=== PATIENT | female | born 1945 | race Caucasian/White ===

== ENCOUNTER 2016-09-09 10:17 | Outpatient (CLI) | payer MEDICARE, OTHER ==
--- NOTE | 2016-09-10 15:26 | Mammography Report ---
DIGITAL SCREENING MAMMOGRAM: 09/09/2016 CLINICAL INDICATION: A 70-year-old, for screening. COMPARISON: 08/2015, 05/2014, 05/2013, 02/2012. TECHNIQUE: Routine CC and MLO projections were obtained of the breasts. FINDINGS: Scattered fibroglandular tissue is present within the breasts. There are no dominant benigno s, suspicious microcalcifications, or secondary signs of malignancy. In comparison to the previous st udies, there are no significant changes. ASSESSMENT: NO MAMMOGRAPHIC EVIDENCE OF MALIGNANCY. NO SIGNIFICANT INTERVAL CHANGES. RECOMMENDATION: Screening mammography is recommended annually. BIRADS category 1 - negative. STANDARD QUALIFYING STATEMENTS 1. This examination was reviewed with the aid of Computed-Aided Detection (CAD). 2. A negative or benign imaging report should not delay biopsy if clinically suspicious findings are present. Consider surgical consultation if warranted. More than 5% of cancers are not identified by i maging. 3. Dense breasts may obscure an underlying neoplasm. JOB #: [id number] EXT JOB #:[id number]
== END 2016-09-09 10:18 | disposition home or self-care (01) ==
LOC: DI 10:17
PROVIDERS: ATTEND Physician Assistant
DX: Z12.31 Encounter for screening mammogram for malignant neoplasm of breast (principal)
CPT/HCPCS: 77067

== ENCOUNTER 2016-09-09 10:18 | Outpatient (CLI) | payer MEDICARE, OTHER ==
--- NOTE | 2016-09-09 15:55 | DEXA Report ---
DEXA SCAN: 09/09/2016 CLINICAL INDICATION: Postmenopausal. TECHNIQUE: Dual energy x-ray absorptiometry (DXA) was performed on a [employer] system. Regions measured are the AP spine, femoral neck, and, if needed, forearm. COMPARISON: None. In accordance with the International Society for Clinical Densitometry (ISCD) guidelines, data from previous exams may be reanalyzed using current recommendations and techniques. This is done to allow a more accurate basis for comparison with the current study. FINDINGS: The data for the lumbar spine is as follows: REGION BMD (g/cm/cm) T-SCORE Z-SCORE L1 1.110 -0.2 0.9 L2 0.974 -1.9 -0.8 L3 0.957 -2.0 -0.9 L4 1.104 -0.8 0.3 TOTAL 1.042 -1.1 0.0 NOTE: All evaluable vertebrae are used for classification. The data for the hip is as follows: REGION BMD (g/cm/cm) T-SCORE Z-SCORE Neck 0.714 -2.3 -1.0 TOTAL 0.757 -2.0 -1.0 NOTE: The femoral neck or total proximal femur, whichever is lowest, is used for classification. * Denotes significant change at the 95% confidence level. Denotes dissimilar scan types or analysis methods. IMPRESSION: THE WHO CLASSIFICATION BASED ON THE INTERNATIONAL REFERENCE STANDARD IS OSTEOPENIA. THE FRACTURE RISK IS INCREASED. RECOMMENDATION: Patients with diagnosis of osteoporosis or osteopenia should have regular bone mineral density assessment. For those eligible for Medicare, routine testing is allowed once every 2 years. Testing frequency can be increased for patients who have rapidly progressing disease or for those who are receiving medical therapy to restore bone mass. COMMENT: World Health Organization (WHO) definitions for osteoporosis and osteopenia: NORMAL BMD: T-score at -1.0 or higher, fracture risk is low. OSTEOPENIA BMD: T-score between -1.0 and -2.5, fracture risk is increased. OSTEOPOROSIS BMD: T-score at -2.5 or lower, fracture risk high. National Osteoporosis Foundation recommends: 1. Obtain adequate dietary calcium (at least 1200 mg per day) and vitamin D (400 -800 international units per day). 2. Participate, as appropriate, in regular weightbearing and muscle- strengthening exercise. 3. Avoid tobacco use and reduce alcohol and caffeine intake. 4. For more detailed information see the website at www.NOF.org. MTDD
== END 2016-09-09 10:19 | disposition home or self-care (01) ==
LOC: DI 10:18
PROVIDERS: ATTEND Physician Assistant
DX: M85.89 Other specified disorders of bone density and structure, multiple sites (principal); N95.8 Other specified menopausal and perimenopausal disorders
CPT/HCPCS: 77080

== ENCOUNTER 2018-01-06 08:32 | Outpatient (CLI) | payer MEDICARE, OTHER ==
--- NOTE | 2018-01-09 14:39 | Mammography Report ---
Reason: SCREENING MAMMO Procedure Date: 01/06/2018 Accession Number: [id number] / [id number] Procedure: [facility] - Screening Mammo Dig Bilat CPT Code: FULL RESULT: EXAM: Screening Mammo Dig Bilat DATE: 01/06/2018 8:47 AM CLINICAL HISTORY: 9-year-old female with family history of breast cancer in a sister at age 50. TECHNIQUE: Bilateral CC and MLO views were obtained. COMPARISON: 09/09/2016, 08/13/2015, 05/25/2014, 05/15/2013. FINDINGS: The breasts demonstrate scattered fibroglandular densities bilaterally. Typically benign vascular calcifications and typically benign coarse calcifications are seen bilaterally. No suspicious masses, clustered microcalcifications, or regions of architectural distortion are identified. IMPRESSION: Benign findings RECOMMENDATION: Routine annual screening unless otherwise clinically indicated. BIRADS CATEGORY 2: Benign findings STANDARD QUALIFYING STATEMENTS: 1. This examination was not reviewed with the aid of Computer-Aided Detection (CAD). 2. A negative or benign imaging report should not delay biopsy if clinically suspicious findings are present. Consider surgical consultation if warrented. More than 5% of cancers are not identified by imaging. 3. Dense breasts may obscure an underlying neoplasm. 4. This examination was reviewed without the aid of 3D breast imaging (tomosynthesis).
== END 2018-01-06 08:33 | disposition home or self-care (01) ==
LOC: DI 08:32
PROVIDERS: ATTEND Physician Assistant
DX: Z12.31 Encounter for screening mammogram for malignant neoplasm of breast (principal)
CPT/HCPCS: 77067

== ENCOUNTER 2018-03-02 08:12 | Emergency (ER) | payer MEDICARE, OTHER ==
--- NOTE | 2018-03-02 08:32 | ED Physician Documentation ---
PD HPI ABD PAIN - Stated complaint Stated Complaint: BACK PX - Chief complaint Chief Complaint: Abd Pain - History obtained from History obtained from: Patient - History of Present Illness Timing - onset: How many hours ago (3), Last night Timing - details: Abrupt onset Quality: Aching, Sharp, Pain Location: No: RUQ, RLQ Radiation: Right flank Improved by: No: Laying still Worsened by: Palpation. No: Moving, Breathing Associated symptoms: Nausea. No: Fever, Vomiting, Diarrhea, Constipation, Dysuria Similar symptoms before: Has not had sx before Recently seen: Not recently seen Review of Systems Constitutional: denies: Fever, Myalgias Nose: denies: Rhinorrhea / runny nose, Congestion Throat: denies: Sore throat Respiratory: denies: Cough GI: reports: Abdominal Pain (right flank mainly and lateral abd wall. Not tender anteriorly), Nausea. 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 - Present Medications Home Medications: Ambulatory Orders Medication Instructions Recorded Confirmed Lisinopril 40 mg PO BID 05/09/13 05/09/13 Potassium Chloride 10 meq PO 05/09/13 05/09/13 Triamterene/Hydrochlorothiazid 1 each PO 05/09/13 05/09/13 [Triamterene-Hctz 37.5-25 mg Tb] Pravastatin Sodium 20 mg PO 05/10/13 05/10/13 Risedronate Sodium [Actonel] 35 mg PO 05/10/13 05/10/13 Methocarbamol [Robaxin] 500 mg PO Q6H PRN #20 tablet 03/02/18 Naproxen 375 mg PO BID #20 tablet 03/02/18 Ondansetron Odt [Zofran] 4 mg TL Q6H PRN #10 tablet 03/02/18 Oxycodone HCl/Acetaminophen 1 - 2 each PO Q6H PRN #14 tablet 03/02/18 [Percocet 5-325 mg Tablet] - Allergies Allergies/Adverse Reactions: Allergies Allergy/AdvReac Type Severity Reaction Status Date / Time codeine AdvReac Emesis Verified 03/02/18 08:19 - Social History Does the pt smoke?: No Smoking Status: Never smoker Does the pt drink ETOH?: Yes Does the pt have substance abuse?: No - Immunizations Immunizations are current?: Yes PD ED PE NORMAL - Vitals Vital signs reviewed: Yes - General General: Alert and oriented X 3, Well developed/nourished, Other (appears in marked pain) - Neck Neck: Supple, no meningeal sign, No adenopathy - Cardiac Cardiac: RRR, No murmur - Respiratory Respiratory: Clear bilaterally - Abdomen Abdomen: Normal bowel sounds, Soft, Non tender, Non distended - Back Back: No spinal TTP, Other (right CVA tenderness) - Derm Derm: Normal color, Warm and dry, No rash - Extremities Extremities: No tenderness to palpate, Normal ROM s pain, No edema, No calf tenderness / cord - Neuro Neuro: Alert and oriented X 3, No motor deficit, Normal speech Results - Vitals Vitals: Vital Signs - 24 hr 03/02/18 03/02/18 08:16 10:35 Temperature 36.9 C Heart Rate 76 56 L Respiratory 16 15 Rate Blood Pressure 155/91 H 115/71 O2 Saturation 97 95 Oxygen O2 Source Room air - Labs Labs: Laboratory Tests 03/02/18 03/02/18 03/02/18 08:20 09:10 09:10 WBC 7.4 RBC 4.30 Hgb 13.9 Hct 40.3 MCV 93.9 MCH 32.3 H MCHC 34.4 RDW 12.4 Plt Count 204 MPV 8.9 Neut # (Auto) 4.2 Lymph # (Auto) 2.7 [place] # (Auto) 0.4 Eos # (Auto) 0.1 Baso # (Auto) 0.0 Absolute Nucleated RBC 0.00 Nucleated RBC % 0.0 Sodium 133 L Potassium 3.6 Chloride 100 L Carbon Dioxide 27 Anion Gap 6.0 BUN 16 Creatinine 0.7 Estimated GFR (MDRD) 83 L Glucose 101 H Calcium 9.9 Urine Color YELLOW Urine Clarity CLEAR Urine pH 6.0 Ur Specific [place] 1.025 Urine Protein NEGATIVE Urine Glucose (UA) NEGATIVE Urine Ketones NEGATIVE Urine Occult Blood NEGATIVE Urine Nitrite NEGATIVE Urine Bilirubin NEGATIVE Urine Urobilinogen 0.2 (NORMAL) Ur Leukocyte Esterase NEGATIVE Ur Microscopic Review NOT INDICATED Urine Culture Comments NOT INDICATED - Rads (name of study) KUB CT Radiology: Prelim report reviewed (no stones nor other acute process) PD MEDICAL DECISION MAKING - ED course Complexity details: reviewed results (CT and labs normal. Not sure of cause of the pain. Presume muscular. ), re-evaluated patient (pain improved), considered differential (Likely kidney stone versus muscular, vascular. Does not seem gallbladder. Lower abd not tender. ), d/w patient Departure - Departure Disposition: 01 Home, Self Care Clinical Impression: Acute right flank pain Condition: Stable Record reviewed to determine appropriate education?: Yes Instructions: ED Flank Pain Uncertain Cause Follow-Up: Amber Harrison PA [Primary Care Provider] - Prescriptions: Methocarbamol [Robaxin] 500 mg PO Q6H PRN #20 tablet PRN Reason: Spasms Naproxen 375 mg PO BID #20 tablet Ondansetron Odt [Zofran] 4 mg TL Q6H PRN #10 tablet PRN Reason: Nausea / Vomiting Oxycodone HCl/Acetaminophen [Percocet 5-325 mg Tablet] 1 - 2 each PO Q6H PRN #14 tablet PRN Reason: pain Comments: The CT scan, blood tests, urine test did not show any obvious cause of the pain. There are no stones no acute infections obviously seen. Presume then it was muscular pain for lack of another diagnosis at this time. Use some naproxen twice daily over the next week for presumed inflammation of the muscle. Add Robaxin and/or Percocet for spasm or pain as needed. Ondansetron if needed for nausea. Recheck if other symptoms develop such as fever, rash, abdominal pain, diarrhea, bloody stools, other symptoms that do not fit. Discharge Date/Time: 03/02/18 10:36
[2018-03-02] MEDS ORDERED: HYDROmorphone 1 MG/ML CARPUJECT IVP STA (08:49)
[2018-03-02] MEDS ORDERED: SODIUM CHLORIDE 0.9% 1,000 ML IV ONE (08:49)
[2018-03-02] MEDS ORDERED: KETOROLAC 60 MG/2 ML VIAL IVP STA (08:49)
[2018-03-02] MEDS ORDERED: ONDANSETRON 4 MG/2 ML VIAL IVP STA (08:49)
[2018-03-02 09:18] LABS: BILIRUBIN,URINE NEGATIVE (NEGATIVE); GLUCOSE, URINE (UA) NEGATIVE (NEGATIVE); KETONES,URINE (UA) NEGATIVE (NEGATIVE); LEUKOCYTE ESTERASE, URINE NEGATIVE (NEGATIVE); NITRITE,URINE NEGATIVE (NEGATIVE); OCCULT BLOOD,URINE NEGATIVE (NEGATIVE); PROTEIN,URINE NEGATIVE (NEGATIVE); UROBILINOGEN,URINE 0.2 (NORMAL) E.U./dL (NORMAL)
[2018-03-02 09:21] LABS: CLARITY,URINE CLEAR (CLEAR)
[2018-03-02 09:29] LABS: CALCIUM 9.9 mg/dL (8.5-10.3); CREATININE 0.7 mg/dL (0.4-1.0)
--- NOTE | 2018-03-02 09:39 | CT Report ---
Reason: right flank pain onset overnight Procedure Date: 03/02/2018 Accession Number: [id number] / [id number] Procedure: CT - KUB CPT Code: FULL RESULT: EXAM: CT ABDOMEN AND PELVIS (CT KUB) EXAM DATE: 03/02/2018 09:09 AM. CLINICAL HISTORY: Right flank pain onset overnight. COMPARISONS: No prior abdominal pelvic CT for comparison; chest CT on 07/04/2010. TECHNIQUE: Routine axial helical CT imaging was performed through the abdomen and pelvis without IV contrast. Reconstructions: Coronal and sagittal. In accordance with CT protocol optimization, one or more of the following dose reduction techniques were utilized for this exam: automated exposure control, adjustment of mA and/or KV based on patient size, or use of iterative reconstructive technique. FINDINGS: Lung Bases: The prior posterior right lower lobe nodule 5 mm and the anterior pleural-based nodule in the right lower lobe of 3 mm, unchanged, compatible with benign lesion. Right Kidney/Ureter: No stones, hydronephrosis, or hydroureter. No perinephric fat stranding. Left Kidney/Ureter: No stones, hydronephrosis, or hydroureter. No perinephric fat stranding. There is a soft tissue nodule, 1 x 1.2 cm abutting the anterior portion of the left extrarenal pelvis with mild perirenal fat stranding. Other Solid Organs: Noncontrast images of the solid organs are grossly unremarkable. Gallbladder/Bile Ducts: Unremarkable. Peritoneal Cavity: The tip of the appendix measured 8.3 mm with mild periappendiceal fat stranding. No free fluid, free air or ramirez adenopathy. There is colon diverticulosis without diverticulitis. The small bowel is grossly unremarkable. Pelvic Organs: No bladder stones or wall thickening. Noncontrast images of the visualized pelvic organs are unremarkable. Vasculature: There is borderline or mild anterior compression fracture at L1. There is multilevel mild to moderate degenerative disk disease in the lower thoracic spine through the mid lumbar spine, worse at L1-L2. Other: No hernia seen. IMPRESSION: 1.No urinary tract stones or obstruction. A soft tissue nodule, 1 x 1.2 cm abutting the anterior portion of the left extrarenal pelvis with mild perirenal fat stranding, suspicious for a lymph node versus less likely a complex exophytic renal cyst. Recommend a renal ultrasound follow-up in 2-4 months. 2. Borderline to slightly enlarged tip of the appendix with mild inflammatory appearance, early appendicitis cannot be excluded. Recommend clinical correlation. 3. Colon diverticulosis without diverticulitis. RADIA
[2018-03-02 10:00] LABS: BASOPHILS % (AUTO) 0.4 %; EOSINOPHILS # (AUTO) 0.1 10^3/uL (0.0-0.7); EOSINOPHILS % (AUTO) 1.5 %; HGB - HEMOGLOBIN 13.9 g/dL (12.0-16.0); LYMPHOCYTES # (AUTO) 2.7 10^3/uL (1.5-3.5); LYMPHOCYTES % (AUTO) 36.2 %; MEAN CORPUSCULAR HEMOGLOBIN 32.3 pg (27.0-31.0); MEAN CORPUSCULAR HGB CONC 34.4 g/dL (32.0-36.0); MEAN CORPUSCULAR VOLUME 93.9 fL (81.0-99.0); MEAN PLATELET VOLUME 8.9 fL (7.9-10.8); MONOCYTES # (AUTO) 0.4 10^3/uL (0.0-1.0); MONOCYTES % (AUTO) 5.6 %; NEUTROPHILS # (AUTO) 4.2 10^3/uL (1.5-6.6); NEUTROPHILS % (AUTO) 56.3 %; PLT - PLATELET COUNT 204 10^3/uL (130-450); RED CELL DISTRIBUTION WIDTH 12.4 % (12.0-15.0); WHITE BLOOD COUNT 7.4 x10^3/uL (4.8-10.8)
[2018-03-02 10:36] VITALS: BP 115/71
== END 2018-03-02 10:36 | disposition home or self-care (01) ==
LOC: ED 08:12
DX: R10.9 Unspecified abdominal pain (principal); R11.0 Nausea; M79.9 Soft tissue disorder, unspecified; K57.90 Diverticulosis of intestine, part unspecified, without perforation or abscess without bleeding; I10 Essential (primary) hypertension
CPT/HCPCS: 74176; 80048; 81003; 85025; 96361; 96374; 96375; 99283; J1170; 81001; 87086

== ENCOUNTER 2018-07-22 08:08 | Outpatient (CLI) | payer MEDICARE, OTHER ==
--- NOTE | 2018-07-24 09:21 | Ultrasound Report ---
Reason: SIMPLE RENAL CYST Procedure Date: 07/22/2018 Accession Number: [id number] / [id number] Procedure: US - Retroperitoneal CPT Code: FULL RESULT: EXAM: RENAL ULTRASOUND EXAM DATE: 07/22/2018 09:15 AM. CLINICAL HISTORY: Simple renal cyst. COMPARISON: KUB 03/02/2018 8:55 AM. TECHNIQUE: Real-time scanning was performed with static images obtained. FINDINGS: Right Kidney: 11.1 x 6 x 5.9 cm. Normal echotexture with no stones, contour-deforming masses, or hydronephrosis. Left Kidney: 11.3 x 5.5 x 5 x 1 cm. Normal echotexture with no stones, contour-deforming masses, or hydronephrosis. No cyst or mass identified on the current study. Bladder: Bilateral jets seen. The prevoid bladder volume was 213.4 cc. The postvoid bladder volume was 0 cc. Other: None. IMPRESSION: 1. Previous nodule noted adjacent to the left renal pelvis not currently seen on ultrasound. Recommend follow-up with CT given the previous examination was also CT. 2. No mass, stone or hydronephrosis. 3. Normal bladder. RADIA
== END 2018-07-22 08:09 | disposition home or self-care (01) ==
LOC: DI 08:08
PROVIDERS: ATTEND Physician Assistant
DX: N28.1 Cyst of kidney, acquired (principal)
CPT/HCPCS: 76770

== ENCOUNTER 2019-10-04 12:40 | Outpatient (CLI) | payer MEDICARE, OTHER ==
--- NOTE | 2019-10-04 18:06 | DEXA Report ---
Reason: OSTEOPENIA Procedure Date: 10/04/2019 Accession Number: [id number] / [id number] Procedure: DEX - Dexa Spine and/or Hip CPT Code: Final Report FULL RESULT: PROCEDURE: Dexa Spine and/or Hip INDICATIONS: OSTEOPENIA TECHNIQUE: Dual energy x-ray absorptiometry (DXA) was performed on a [employer] System. Regions measured are the AP Spine, femoral neck, and if needed forearm. COMPARISON: 09/09/2016. FINDINGS: Lumbar Spine: Bone Mineral Density 1.072 g/cm/cm,T score -0.9, normal Left Femoral Neck: Bone Mineral Density 0.752 g/cm/cm, T score -2, osteopenia (T score greater or equal to -1.0: NORMAL) (T score from -1.1 to -2.4: OSTEOPENIA) (T score less than or equal to -2.5 to: OSTEOPOROSIS) Impression: Osteopenia. Patient is at increased risk for fracture. Patients with diagnosis of osteoporosis or osteopenia should have regular bone mineral density assessment. For those eligible for Medicare, routine testing is allowed once every 2 years. Testing frequency can be increased for patients who have rapidly progressing disease or for those who are receiving medical therapy to restore bone mass. Reviewed by: Alvin De Leon MD on 10/04/2019 6:04 PM PDT Approved by: Alvin De Leon MD on 10/04/2019 6:04 PM PDT Station ID: [id number]
== END 2019-10-04 12:41 | disposition home or self-care (01) ==
LOC: DI 12:40
PROVIDERS: ATTEND Nurse Practitioner Family
DX: M85.88 Other specified disorders of bone density and structure, other site (principal); R59.0 Localized enlarged lymph nodes
CPT/HCPCS: 76642; 77066; 77080

== ENCOUNTER 2019-10-04 12:43 | Outpatient (CLI) | payer MEDICARE, OTHER ==
--- NOTE | 2019-10-08 13:23 | Ultrasound Report ---
ULTRASOUND OF RIGHT AXILLA: 10/04/2019 CLINICAL: Palpable right axilla lump. Comparison is made to exams dated: 10/04/2019 mammogram, 01/06/2018 mammogram, 09/09/2016 mammogram, and 08/13/2015 mammogram - [facility]. Color flow and real-time ultrasound of the right axilla were performed. Ferrer scale images of the dylan l-time examination were reviewed. There is a 3.1 cm x 3 cm x 2.5 cm round enlarged lymph node with a circumscribed margin in the right axillary tail. This round enlarged lymph node is hypoechoic with no fatty hilum and posterior acoust ic enhancement. This correlates as palpated. Color flow imaging demonstrates that there is vascular ity present. IMPRESSION: SUSPICIOUS OF MALIGNANCY The 3.1 cm x 3 cm x 2.5 cm round enlarged lymph node is consistent with an enlarged lymph node and is at a high suspicion for malignancy. An ultrasound guided biopsy is recommended. Exam findings were discussed with the patient by Dr. De Leon. Recommendation was called to PAULIE Wilson NP. This exam was interpreted at Station ID: [id number]. Electronically Signed By: Jimmy Phan M.D. slc/:10/04/2019 16:04:15 Ultrasound BI-RADS: 4c High suspicion of malignancy BI-RADS CATEGORY: (4c) - High Susp None [id number] Immediate follow-up LATERALITY: ()
--- NOTE | 2019-10-08 13:23 | Mammography Report ---
BILATERAL DIGITAL DIAGNOSTIC MAMMOGRAM 3D/2D: 10/04/2019 CLINICAL: Palpable right axilla lump. Comparison is made to exams dated: 01/06/2018 mammogram, 09/09/2016 mammogram, and 08/13/2015 mammogram - [facility]. There are scattered fibroglandular elements in both breasts. No significant masses, calcifications, or other findings are seen in either breast. IMPRESSION: INCOMPLETE: NEEDS ADDITIONAL IMAGING EVALUATION No significant masses, calcifications, or other findings are seen in either breast. Targeted ultrasound of the right axilla palpable abnormality is recommended and will immediately foll ow. This exam was interpreted at Station ID: [id number]. NOTE: For mammograms, a report in lay terms will be sent to the patient. Approximately 15% of breast malignancies will not be visualized mammographically. In the management of a palpable breast mass, a negative mammogram must not discourage biopsy of a clinically suspicious lesion. Electronically Signed By: Jimmy Phan M.D. slc/:10/04/2019 15:59:41 ACR BI-RADS Category 0: Incomplete 3340F PARENCHYMAL PATTERN: (A) - The breast(s) demonstrate(s) scattered fibroglandular densities. BI-RADS CATEGORY: (0) - 0 Ultrasound [id number] Immediate follow-up LATERALITY: (B)
== END 2019-10-04 12:44 | disposition home or self-care (01) ==
LOC: DI 12:43
PROVIDERS: ATTEND Nurse Practitioner Family
DX: R59.0 Localized enlarged lymph nodes (principal)
CPT/HCPCS: 76642; 77066

== ENCOUNTER 2019-10-16 13:22 | Outpatient (CLI) | payer MEDICARE, OTHER ==
[2019-10-16] MEDS ORDERED: BUFFERED LIDOCAINE 10 ML SYRINGE ONE (13:31)
[2019-10-16] MEDS ORDERED: BUFFERED LIDOCAINE 10 ML SYRINGE IU ONE (16:03)
--- NOTE | 2019-10-17 15:51 | Mammography Report ---
UNILATERAL RIGHT DIGITAL DIAGNOSTIC MAMMOGRAM: 10/16/2019 CLINICAL: Post Right axillary node biopsy. Comparison is made to exams dated: 10/04/2019 mammogram, 01/06/2018 mammogram, 09/09/2016 mammogram, 08/12 mammogram, 05/25/2014 mammogram, and 05/15/2013 mammogram - [facility]. There are scattered fibroglandular elements in right breast. There are post biopsy changes in the axillary tissue, however the marker placed into the biopsied lym ph node was not visible on the mammogram. Ultrasound imaging confirmed marker in place within the bio psied lymph node. IMPRESSION: POST PROCEDURE MAMMOGRAM FOR MARKER PLACEMENT There was a successful marker clip placement in the right axillary lymph node, confirmed by ultrasoun d imaging, not seen by mammogram. This exam was interpreted at Station ID: [id number]. NOTE: For mammograms, a report in lay terms will be sent to the patient. Approximately 15% of breast malignancies will not be visualized mammographically. In the management of a palpable breast mass, a negative mammogram must not discourage biopsy of a clinically suspicious lesion. Electronically Signed By: Eliza rushing/:10/17/2019 08:30:52 ACR BI-RADS Category Post-procedure mammogram for marker placement PARENCHYMAL PATTERN: (A) - The breast(s) demonstrate(s) scattered fibroglandular densities. BI-RADS CATEGORY: () - Unspecified - other recall n/a LATERALITY: (B)
--- NOTE | 2019-10-24 07:32 | Ultrasound Report ---
ULTRASOUND GUIDED BIOPSY RIGHT BREAST WITH MARKING DEVICE INSERTED AND POST DIGITAL MAMMOGRAPHIC IMAG IN10/16/2019 CLINICAL: Palpable right axilla lump. PATIENT CONSENT: Risks (minor bleeding, infection, vasovagal reaction and repeat procedure), benefits and alternatives were explained to the patient and written informed consent was obtained. Correlation is made to exams dated: 10/16/2019 mammogram, 10/04/2019 ultrasound, 10/04/2019 mammogram, mammogram, 08/13/2015 mammogram, and 09/09/2016 mammogram - [facility]. An ultrasound guided biopsy using real-time ultrasound was performed for the palpable 3.1 cm x 2.8 cm x 2.7 cm circumscribed oval lymph node located in the right axillary tail. This was described on previous ultrasound report. The skin was prepped in the usual manner. Local anesthetic was admini stered to the access site. A skin madison was made in the breast. The abnormality was approached from the caudocranial aspect. A 14 gauge biopsy needle was placed adjacent to the abnormality under ultra sound guidance. Once the needle was documented to be in the correct location, six specimens were obt ained using an Achieve automated firing device. A clip was inserted into the biopsy cavity. A steri le dressing was applied to the access site. Post procedure digital mammographic imaging demonstrates the location device at the targeted area. The specimens were sent to the laboratory for pathologica l analysis. IMPRESSION: ULTRASOUND GUIDED BIOPSY MALIGNANT Ultrasound guided biopsy of the 3.1 cm x 2.8 cm x 2.7 cm lymph node in the right axillary tail was regalado ccessful. 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 Path ology results are concordant with ultrasound findings. Surgical and oncologic consultation recommended. This exam was interpreted at Station ID: [id number]. Eliza rushing,ddp/:10/19/2019 16:50:39 BI-RADS CATEGORY: () - Unspecified - other recall n/a LATERALITY: (B)
== END 2019-10-16 13:23 | disposition home or self-care (01) ==
LOC: DI 13:22
PROVIDERS: ATTEND Nurse Practitioner Family
DX: C77.3 Secondary and unspecified malignant neoplasm of axilla and upper limb lymph nodes (principal)
CPT/HCPCS: 19083

== ENCOUNTER 2020-04-10 08:58 | Emergency (ER) | payer MEDICARE, OTHER ==
[2020-04-10] MEDS ORDERED: SODIUM CHLORIDE 0.9% 1,000 ML IV STA (09:17)
[2020-04-10] MEDS ORDERED: ASPIRIN CHEW 81 MG TABLET PO STA (09:17)
--- NOTE | 2020-04-10 09:35 | XRAY Report ---
PROCEDURE: Chest 1 View X-Ray INDICATIONS: Chest pain TECHNIQUE: One view of the chest was acquired. COMPARISON: None. FINDINGS: Surgical changes and devices: Right chest wall surgical clips. A left chest wall central venous port catheter terminating at the superior cavoatrial junction. Lungs and pleura: No pleural effusions or pneumothorax. Lungs are clear. Mediastinum: Mediastinal contours appear normal. Heart size is normal. Bones and chest wall: No suspicious bony lesions. Overlying soft tissues appear unremarkable. IMPRESSION: No acute cardiopulmonary process demonstrated radiographically. Reviewed by: Amadeo Kathleen MD on 04/10/2020 9:34 AM [facility] Approved by: Amadeo Kathleen MD on 04/10/2020 9:34 AM [facility] Station ID: [id number]
[2020-04-10 10:26] LABS: BASOPHILS # (AUTO) 0.1 10^3/uL (0.0-0.1); BASOPHILS % (AUTO) 0.7 %; EOSINOPHILS # (AUTO) 0.1 10^3/uL (0.0-0.7); EOSINOPHILS % (AUTO) 1.3 %; HGB - HEMOGLOBIN 14.3 g/dL (12.0-16.0); LYMPHOCYTES # (AUTO) 2.2 10^3/uL (1.5-3.5); LYMPHOCYTES % (AUTO) 30.6 %; MEAN CORPUSCULAR HEMOGLOBIN 31.3 pg (27.0-31.0); MEAN CORPUSCULAR HGB CONC 33.9 g/dL (32.0-36.0); MEAN CORPUSCULAR VOLUME 92.3 fL (81.0-99.0); MEAN PLATELET VOLUME 10.4 fL (7.9-10.8); MONOCYTES # (AUTO) 0.6 10^3/uL (0.0-1.0); MONOCYTES % (AUTO) 7.7 %; NEUTROPHILS # (AUTO) 4.2 10^3/uL (1.5-6.6); NEUTROPHILS % (AUTO) 59.3 %; PLT - PLATELET COUNT 208 10^3/uL (130-450); RED BLOOD COUNT 4.57 10^6/uL (4.20-5.40); RED CELL DISTRIBUTION WIDTH 12.3 % (12.0-15.0); WHITE BLOOD COUNT 7.1 x10^3/uL (4.8-10.8)
[2020-04-10 10:39] LABS: ALBUMIN 4.7 g/dL (3.2-5.5); ALBUMIN/GLOBULIN RATIO 1.7 (1.0-2.2); CALCIUM 9.7 mg/dL (8.5-10.3); CREATININE 0.6 mg/dL (0.4-1.0); TOTAL PROTEIN 7.4 g/dL (6.7-8.2)
--- NOTE | 2020-04-10 11:12 | ED Physician Documentation ---
PD HPI CHEST PAIN - Stated complaint Stated Complaint: LT SHOULDER/CHEST PX - Chief complaint Chief Complaint: Cardiac - History obtained from History obtained from: Patient - Additional information Additional information: Patient comes emergency department chief complaint of right neck and chest pain that shoots across to her sternum occasionally. Patient states that sometimes the pain is sharp, and other times it is more of a crampy feeling. She denies any shortness of breath, nausea, diaphoresis, or lightheadedness with this. No palpitations. No abdominal pain. The patient states the pain Has been steady since it began on April 02. She states that sometimes it gets worse and other times it seems to ease up a bit. She states nothing really makes it better or worse. She also has a history of GERD, but states this feels a little different. The patient has a history of hypertension and hyperlipidemia, as well. Patient has no history of coronary artery disease that she knows of, and no history of gallstones. She is not a smoker. She states she is otherwise fairly healthy. Her pain is minimal currently. No other complaints at this time. Review of Systems Ten Systems: 10 systems reviewed and negative Constitutional: reports: Reviewed and negative Eyes: reports: Reviewed and negative Ears: reports: Reviewed and negative Nose: reports: Reviewed and negative Throat: reports: Reviewed and negative Cardiac: reports: Chest pain / pressure Respiratory: reports: Reviewed and negative. denies: Dyspnea GI: reports: Reviewed and negative. denies: Abdominal Pain, Nausea : reports: Reviewed and negative Skin: reports: Reviewed and negative Musculoskeletal: reports: Reviewed and negative Neurologic: reports: Reviewed and negative Psychiatric: reports: Reviewed and negative Endocrine: reports: Reviewed and negative Immunocompromised: reports: Reviewed and negative PD PAST MEDICAL HISTORY - Past Medical History Cardiovascular: Hypertension, High cholesterol GI: GERD, Hepatitis Musculoskeletal: Osteoporosis - Past Surgical History Past Surgical History: Yes General: Colonoscopy /CAPABILITY LEAD: Tubal ligation - Present Medications Home Medications: Ambulatory Orders Medication Instructions Recorded Confirmed Triamterene/Hydrochlorothiazid 1 each PO DAILY 05/09/13 04/10/20 [Triamterene-Hctz 37.5-25 mg Tb] lisinopriL [Lisinopril] 40 mg PO DAILY 05/09/13 04/10/20 Rosuvastatin Calcium 5 mg PO DAILY 11/23/19 04/10/20 Zolpidem Tartrate 5 mg PO QPM PRN 11/23/19 04/10/20 Aspirin Chewable [St Kash 81 mg PO DAILY 04/10/20 04/10/20 Aspirin] Ergocalciferol (Vitamin D2) 5,000 mcg PO DAILY 04/10/20 04/10/20 [Vitamin D2] Potassium Chloride [K-Dur] 20 meq PO BIDWM #14 tablet 04/10/20 - Allergies Allergies/Adverse Reactions: Allergies Allergy/AdvReac Type Severity Reaction Status Date / Time codeine AdvReac Emesis Verified 04/10/20 10:24 - Social History Does the pt smoke?: No Smoking Status: Never smoker Does the pt drink ETOH?: Yes Does the pt have substance abuse?: No - Immunizations Immunizations are current?: Yes PD ED PE NORMAL - Vitals Vital signs reviewed: Yes - General General: Alert and oriented X 3, No acute distress, Well developed/nourished - HEENT HEENT: Atraumatic, PERRL, EOMI, Moist mucous membranes - Neck Neck: Supple, no meningeal sign - Cardiac Cardiac: RRR, No murmur, Strong equal pulses, Other (Pain somewhat reproducible with palpation of chest wall.) - Respiratory Respiratory: No respiratory distress, Clear bilaterally - Abdomen Abdomen: Soft, Non tender, Non distended - Derm Derm: Normal color, Warm and dry, No rash - Extremities Extremities: No deformity, No edema, No calf tenderness / cord - Neuro Neuro: Alert and oriented X 3 - Psych Psych: Normal mood, Normal affect Results - Vitals Vitals: Oxygen O2 Source Room air - EKG (time done) 0909 Rate: Rate (enter#) (71) Rhythm: NSR Beeson: Normal Intervals: Normal [place] QRS: Poor R wave progression Ischemia: Normal ST segments. No: T wave inversion Compare to prior EKG: Old EKG unavailable Computer interpretation: Agree with computer - Labs Labs: Laboratory Tests 04/10/20 04/10/20 04/10/20 09:38 09:38 09:38 WBC 7.1 RBC 4.57 Hgb 14.3 Hct 42.2 MCV 92.3 MCH 31.3 H MCHC 33.9 RDW 12.3 Plt Count 208 MPV 10.4 Neut # (Auto) 4.2 Lymph # (Auto) 2.2 Dickey # (Auto) 0.6 Eos # (Auto) 0.1 Baso # (Auto) 0.1 Absolute Nucleated RBC 0.00 Nucleated RBC % 0.0 Sodium 139 Potassium 3.1 L Chloride 98 L Carbon Dioxide 25 Anion Gap 16.0 H BUN 15 Creatinine 0.6 Estimated GFR (MDRD) 98 Glucose 111 H Calcium 9.7 Total Bilirubin 1.0 AST 22 ALT 28 Alkaline Phosphatase 60 Troponin I High Sens 4.9 Total Protein 7.4 Albumin 4.7 Globulin 2.7 Albumin/Globulin Ratio 1.7 Lipase 30 - Rads (name of study) CXR Radiology: Final report received, EMP read indepedently, See rad report (neg) US abd Radiology: Final report received, EMP read indepedently, See rad report (mild fatty liver, O/w neg) PD MEDICAL DECISION MAKING - ED course Complexity details: reviewed old records, reviewed results, re-evaluated patient, considered differential, d/w patient ED course: The patient was well-appearing overall, and her pain seemed atypical cardiac chest pain. However, her pain was only somewhat reproducible with palpation of the chest wall, and I felt that she should be worked up for other potential sources of her chest pain. The patient's work-up with labs, EKG, and chest x- ray in the emergency department were negative, as far as indicating any emergent source of the pain. She is also worked up with an ultrasound of her gallbladder and this revealed no stones. I discussed with the patient that with her unremitting pain over the last week, we would expect her to have a positive troponin, had she had an IN. While I do not feel she has had an acute IN, I do feel that she needs follow-up with her primary care physician to discuss having a stress test done, and I did discuss this with her. Patient was found to be mildly hypokalemic and was started on potassium supplements for this. She is to take them for a week and then have her physician recheck her levels. We have discussed home management and symptoms, as well as the usual indications for return. Departure - Departure Disposition: 01 Home, Self Care Clinical Impression: Hypokalemia Chest pain Qualifiers: Chest pain type: unspecified Qualified Code(s): R07.9 - Chest pain, unspecified Condition: Stable Instructions: Hypokalemia Dc, ED Chest Pain Atypical Unkn Cause Prescriptions: Potassium Chloride [K-Dur] 20 meq PO BIDWM #14 tablet Comments: Your labs look good overall. Your cardiac enzymes are normal and your EKG does not show any signs of an acute heart attack. Your potassium was found to be mildly low again, and for this, we will put you on a weeks worth of supplements. Afterward, you should follow-up with your primary care physician to have this level rechecked, as well as to discuss having a cardiac stress test. Please call first thing this afternoon or tomorrow morning to set up an appointment for follow-up. Discharge Date/Time: 04/10/20 11:51
--- NOTE | 2020-04-10 11:29 | Ultrasound Report ---
PROCEDURE: Abdomen Limited INDICATIONS: R upper abd/shoulder pain/indigestion TECHNIQUE: Real-time scanning was performed of the abdominal and retroperitoneal organs, with image documentatio n. COMPARISON: CT KUB 03/02/2018. FINDINGS: Liver: Liver is diffusely increased in echogenicity. A focal area of fatty sparing is seen near the corky hepatis. A probable cyst is seen in the anterior left hepatic lobe measuring 8 x 7 x 3 mm Gallbladder: The gallbladder appears normal without gallstones or gallbladder wall thickening. There is no pericholecystic fluid. Sonographic Brown sign is negative. Biliary ducts: Intrahepatic bile ducts are non-dilated. Extrahepatic bile duct caliber measures 7 m m. Normal is 6-7 mm or less in diameter, or 10 mm or less post-cholecystectomy. Pancreas: Visualized portions of the pancreas are sonographically normal. Spleen: Spleen is normal in size and homogeneous in echotexture. Kidneys: Kidneys are normal in size and echotexture. Right kidney measures 10.2 cm long. No hydron ephrosis or nephrolithiasis. No solid masses. Miscellaneous: No free right upper quadrant fluid. IMPRESSION: 1. Diffusely increased hepatic echogenicity is nonspecific, but most commonly encountered in the set ting of hepatic steatosis. However, other causes of hepatocellular disease are not excluded. Recommen d clinical correlation. 2. Normal sonographic appearance of the gallbladder. Reviewed by: Mayur Barron MD on 04/10/2020 11:28 AM PST Approved by: Mayur Barron MD on 04/10/2020 11:28 AM PST Station ID: [id number]
[2020-04-10 11:54] VITALS: BP 113/71
--- OUTSIDE RECORDS SUMMARY | 2020-04-16 01:04 | EXTERNAL MEDICAL SUMMARY RPT | Continuity of Care Document ---
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 2020-01-29 09:45 MALIGNANT (PRIMARY) NEOPLASM, [facility] UNSPECIFIED 2020-01-29 09:45 ENCOUNTER FOR ANTINEOPLASTIC [facility] IMMUNOTHERAPY 2020-01-29 09:45 OTHER CUSTODIAL (CURRENT) DRUG Merged With [facility] THERAPY 2020-01-29 09:45 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 2020-02-19 09:13 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 2020-02-19 09:13 MALIGNANT (PRIMARY) NEOPLASM, [facility] UNSPECIFIED 2020-02-19 09:13 ENCOUNTER FOR ANTINEOPLASTIC [facility] IMMUNOTHERAPY 2020-02-19 09:13 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 2020-02-19 09:13 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 2020-02-19 13:00 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 2020-02-19 13:00 MALIGNANT (PRIMARY) NEOPLASM, [facility] UNSPECIFIED 2020-02-19 13:00 ENCOUNTER FOR ANTINEOPLASTIC [facility] IMMUNOTHERAPY 2020-02-19 13:00 OTHER CUSTODIAL (CURRENT) DRUG Merged With [facility] THERAPY 2020-02-19 13:00 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 2020-03-11 13:15 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 2020-03-11 13:15 ENCOUNTER FOR ANTINEOPLASTIC [facility] IMMUNOTHERAPY 2020-03-11 13:15 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 2020-03-11 13:15 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 2020-04-01 12:45 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 2020-04-01 12:45 ENCOUNTER FOR ANTINEOPLASTIC [facility] IMMUNOTHERAPY 2020-04-01 12:45 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 2020-04-01 12:45 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 2020-04-09 15:45 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 2020-04-09 15:45 ENCOUNTER FOR ANTINEOPLASTIC [facility] IMMUNOTHERAPY 2020-04-09 15:45 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 2020-04-09 15:45 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 2020-04-22 13:00 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 2020-04-22 13:00 ENCOUNTER FOR ANTINEOPLASTIC [facility] IMMUNOTHERAPY 2020-04-22 13:00 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 2020-04-22 13:00 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 Allergies date description facility [facility]STATIN [facility] PENICILLINS [facility] NO ALLERGY INFORMATION AVAILABLE [facility] PENICILLINS [facility] POVIDONE[facility]ODINE [facility] LEV[facility]FLOXACIN [facility] LISINOPRIL [facility] NITROFURANTOIN MACROCRYSTAL [facility] codeine [facility] NO KNOWN ENVIRONMENTAL ALLERGIES [facility] STATINS [facility] NO ALLERGY INFORMATION ON FILE Merged With [facility] NO KNOWN ALLERGIES [facility] PENICILLINS [facility] SULFA (SULFONAMIDE ANTIBIOTICS) Merged with [facility] NO KNOWN ALLERGIES [facility] CODEINE [facility] codeine [facility] NO KNOWN ENVIRONMENTAL ALLERGIES [facility] Results Social History date description facility [id number]
== END 2020-04-10 11:51 | disposition home or self-care (01) ==
LOC: ED 08:58
DX: R07.89 Other chest pain (principal); E87.6 Hypokalemia; K21.9 Gastro-esophageal reflux disease without esophagitis; I10 Essential (primary) hypertension; E78.5 Hyperlipidemia, unspecified; Z79.82 Long term (current) use of aspirin
CPT/HCPCS: 36415; 71045; 76705; 80053; 83690; 84484; 85025; 93005; 96361; 96374; 99284; A9270

== ENCOUNTER 2021-01-30 08:57 | Outpatient (CLI) | payer MEDICARE, OTHER ==
[2021-01-30 17:38] LABS: RHEUMATOID FACTOR NEGATIVE (Negative)
[2021-02-03 12:30] LABS: ANA PATTERN Nuclear, Homogeneous; ANA SCREEN POSITIVE (NEGATIVE); ANA TITER 1:40 titer
== END 2021-01-30 08:58 | disposition home or self-care (01) ==
LOC: LAB.S 08:57
PROVIDERS: ATTEND Nurse Practitioner Family
DX: M25.50 Pain in unspecified joint (principal); Z79.899 Other long term (current) drug therapy
CPT/HCPCS: 36415; 85651; 86038; 86140; 86430

== ENCOUNTER 2021-07-29 07:57 | Outpatient (CLI) | payer MEDICARE, OTHER ==
--- NOTE | 2021-07-30 15:56 | Mammography Report ---
BILATERAL DIGITAL SCREENING MAMMOGRAM 3D/2D: 07/29/2021 CLINICAL: Routine screening. Family history of breast cancer. Comparison is made to exams dated: 10/16/2019 ultrasound biopsy, 10/16/2019 mammogram, 10/04/2019 ultras ound, 10/04/2019 mammogram, 09/09/2016 mammogram, and 01/06/2018 mammogram - [facility]. There are scattered fibroglandular elements in both breasts. No significant masses, calcifications, or other findings are seen in either breast. There has been no significant interval change. IMPRESSION: NEGATIVE There is no mammographic evidence of malignancy. A 1 year screening mammogram is recommended. This exam was interpreted at Station ID: [id number]. NOTE: For mammograms, a report in lay terms will be sent to the patient. Approximately 15% of breast malignancies will not be visualized mammographically. In the management of a palpable breast mass, a negative mammogram must not discourage biopsy of a clinically suspicious lesion. Electronically Signed By: Amadeo Kathleen M.D., jr/yady:07/29/2021 11:48:40 ACR BI-RADS Category 1: Negative 3341F PARENCHYMAL PATTERN: (A) - The breast(s) demonstrate(s) scattered fibroglandular densities. BI-RADS CATEGORY: (1) - 1 RECOMMENDATION: (ANNUAL) - Recommend routine annual screening mammography. [id number] 1 year screening LATERALITY: (B)
== END 2021-07-29 07:58 | disposition home or self-care (01) ==
LOC: DI.S 07:57
DX: Z12.31 Encounter for screening mammogram for malignant neoplasm of breast (principal); Z80.3 Family history of malignant neoplasm of breast

== ENCOUNTER 2021-10-02 08:14 | Outpatient (CLI) | payer MEDICARE, OTHER ==
--- NOTE | 2021-10-02 13:56 | DEXA Report ---
PROCEDURE: Dexa Spine and/or Hip INDICATIONS: OSTEOPENIA TECHNIQUE: Dual energy x-ray absorptiometry (DXA) was performed on a Covocative System. Regions measur ed are the AP Spine, femoral neck, and if needed forearm. COMPARISON: 10/04/2019. FINDINGS: Lumbar Spine: Bone Mineral Density 1.027 g/cm/cm,T score -0.7, normal bone density. Compared to the previous exa m there has been a significant interval decrease in bone mineral density of the lumbar spine however. Left Hip: Bone Mineral Density 0.723 g/cm/cm,T score -2.3, osteopenia. No significant change since prior. Left Femoral Neck: Bone Mineral Density 0.690 g/cm/cm, T score -2.5, osteoporosis. Total bone mineral density of the ne ck has increased since before however. (T score greater or equal to -1.0: NORMAL) (T score from -1.1 to -2.4: OSTEOPENIA) (T score less than or equal to -2.5 to: OSTEOPOROSIS) Impression: Osteoporosis. Patients with diagnosis of osteoporosis or osteopenia should have regular bone mineral density assess ment. For those eligible for Medicare, routine testing is allowed once every 2 years. Testing frequ ency can be increased for patients who have rapidly progressing disease or for those who are receivin g medical therapy to restore bone mass. Reviewed by: Mayur Goel MD on 10/02/2021 1:55 PM PDT Approved by: Mayur Goel MD on 10/02/2021 1:55 PM PDT Station ID: [id number]
== END 2021-10-02 08:15 | disposition home or self-care (01) ==
LOC: DI 08:14
PROVIDERS: ATTEND Nurse Practitioner Family
DX: M81.0 Age-related osteoporosis without current pathological fracture (principal)

== ENCOUNTER 2022-08-05 07:13 | Outpatient (CLI) | payer MEDICARE, OTHER ==
--- NOTE | 2022-08-06 10:18 | Mammography Report ---
BILATERAL DIGITAL SCREENING MAMMOGRAM 3D/2D: 08/05/2022 CLINICAL: Routine screening. Family history of breast cancer. Comparison is made to exams dated: 07/29/2021 mammogram, 10/16/2019 mammogram, 10/04/2019 mammogram, 01/06/2018 mammogram, and 09/09/2016 mammogram - [facility]. There are scattered areas of fibroglandular density in both breasts (category b / 25%-50% glandular t issue). There is a round asymmetry in the right breast middle depth superior region seen on the mediolateral oblique view only. This is more prominent and increased in size. No other significant masses, calcifications, or other findings are seen in either breast. IMPRESSION: INCOMPLETE: NEEDS ADDITIONAL IMAGING EVALUATION The round asymmetry in the right breast is indeterminate. Additional views with possible ultrasound are recommended. This exam was interpreted at Station ID: [id number]. NOTE: For mammograms, a report in lay terms will be sent to the patient. Approximately 15% of breast malignancies will not be visualized mammographically. In the management of a palpable breast mass, a negative mammogram must not discourage biopsy of a clinically suspicious lesion. Electronically Signed By: Eliza rushing/yady:08/05/2022 10:17:39 ACR BI-RADS Category 0: Incomplete 3340F PARENCHYMAL PATTERN: (A) - The breast(s) demonstrate(s) scattered fibroglandular densities. BI-RADS CATEGORY: (0) - 0 Mammo and [place] [id number] Immediate follow-up LATERALITY: (B)
== END 2022-08-05 07:14 | disposition home or self-care (01) ==
LOC: DI.S 07:13
PROVIDERS: ATTEND Nurse Practitioner Family
DX: Z12.31 Encounter for screening mammogram for malignant neoplasm of breast (principal); R92.8 Other abnormal and inconclusive findings on diagnostic imaging of breast; Z80.3 Family history of malignant neoplasm of breast

== ENCOUNTER 2022-08-05 07:14 | Outpatient (CLI) | payer MEDICARE, OTHER ==
--- NOTE | 2022-08-05 11:06 | XRAY Report ---
PROCEDURE: Knee 3 View RT INDICATIONS: PATELLOFEMORAL STRESS SYNDROME TECHNIQUE: 3 views of the right knee(s) were acquired. COMPARISON: None. FINDINGS: Bones: No fractures or dislocations. No suspicious bony lesions. Minimal tricompartmental osteoar thritis. Enthesophyte over the superior pole of the right patella at the insertion site of the indio ceps tendon. Soft tissues: No knee joint effusion. No suspicious soft tissue calcifications or masses. IMPRESSION: No acute bony abnormality. Minimal tricompartmental osteoarthrosis. Distal quadriceps enthesopathy. Reviewed by: Alvin De Leon MD on 08/05/2022 11:04 AM PDT Approved by: Alvin De Leon MD on 08/05/2022 11:04 AM PDT Station ID: [id number]
== END 2022-08-05 07:15 | disposition home or self-care (01) ==
LOC: DI.S 07:14
PROVIDERS: ATTEND Nurse Practitioner Family
DX: M17.11 Unilateral primary osteoarthritis, right knee (principal); M76.891 Other specified enthesopathies of right lower limb, excluding foot

== ENCOUNTER 2022-09-02 07:47 | Outpatient (CLI) | payer MEDICARE, OTHER ==
--- NOTE | 2022-09-02 10:55 | Mammography Report ---
UNILATERAL RIGHT DIGITAL DIAGNOSTIC MAMMOGRAM 3D/2D: 09/02/2022 CLINICAL: Patient returns today to evaluate an asymmetry in the right breast. Comparison is made to exams dated: 08/05/2022 mammogram, 07/29/2021 mammogram, 10/04/2019 mammogram, and 01/06/2018 mammogram - [facility]. There are scattered areas of fibroglandular density in the right breast (category b / 25%-50% glandul ar tissue). There is a round asymmetry in the right breast middle depth superior region seen on the mediolateral oblique view only. This is increased in size. No other significant masses or calcifications are seen in the breast. IMPRESSION: INCOMPLETE: NEEDS ADDITIONAL IMAGING EVALUATION The round asymmetry in the right breast resembles a cyst and is indeterminate. A targeted ultrasound is recommended and will immediately follow. This exam was interpreted at Station ID: [id number]. NOTE: For mammograms, a report in lay terms will be sent to the patient. Approximately 15% of breast malignancies will not be visualized mammographically. In the management of a palpable breast mass, a negative mammogram must not discourage biopsy of a clinically suspicious lesion. Electronically Signed By: Jimmy Phan M.D. slc/:09/02/2022 08:29:19 ACR BI-RADS Category 0: Incomplete 3340F PARENCHYMAL PATTERN: (A) - The breast(s) demonstrate(s) scattered fibroglandular densities. BI-RADS CATEGORY: (0) - 0 Ultrasound [id number] Immediate follow-up LATERALITY: (B)
--- NOTE | 2022-09-02 10:55 | Ultrasound Report ---
LIMITED ULTRASOUND OF RIGHT BREAST: 09/02/2022 CLINICAL: Patient returns today to evaluate a focal asymmetry in the right breast. Comparison is made to exams dated: 09/02/2022 mammogram, 08/05/2022 mammogram, 07/29/2021 mammogram, 10/15 ultrasound biopsy, 10/16/2019 mammogram, and 10/04/2019 ultrasound - [facility]. Color flow ultrasound of the right breast 11 o'clock region was performed. Ferrer scale images of the real-time examination were reviewed. There is a 0.4 cm x 0.4 cm x 0.3 cm round cyst in the right breast at 12 o'clock middle depth 4 cm fr om the nipple. This round cyst displays internal echoes. This correlates with mammography findings. Color flow imaging demonstrates that there is no vascularity present. IMPRESSION: PROBABLY BENIGN The 0.4 cm cyst in the right breast is consistent with a complicated cyst and is probably benign. A follow-up ultrasound in 6 months is recommended to demonstrate stability. Exam findings were conveyed to the patient. This exam was interpreted at Station ID: [id number]. Electronically Signed By: Jimmy Phan M.D. slc/:09/02/2022 08:33:24 Ultrasound BI-RADS: 3 Probably benign BI-RADS CATEGORY: (3) - 3 Ultrasound [id number] 6 month follow-up LATERALITY: (B)
== END 2022-09-02 07:48 | disposition home or self-care (01) ==
LOC: DI 07:47
PROVIDERS: ATTEND Nurse Practitioner Family
DX: N60.01 Solitary cyst of right breast (principal)

== ENCOUNTER 2023-02-14 10:07 | Outpatient (CLI) | payer MEDICARE, OTHER ==
--- NOTE | 2023-02-15 16:14 | Ultrasound Report ---
LIMITED ULTRASOUND OF RIGHT BREAST: 02/14/2023 CLINICAL: Patient returns for a 6 month follow up of the right breast. Comparison is made to exams dated: 09/02/2022 ultrasound, 09/02/2022 mammogram, 08/05/2022 mammogram, 07/29 mammogram, 10/16/2019 ultrasound biopsy, and 10/16/2019 mammogram - [facility]. Color flow ultrasound of the right breast 11 o'clock region was performed. Ferrer scale images of the real-time examination were reviewed. There is a 0.7 cm x 0.5 cm x 0.5 cm oval hypoechoic mass with a microlobulated margin in the right br east at 11 o'clock, 4 cm from the nipple. Previously the mass measured 0.4 x 0.3 x 0.4 cm on and demonstrated circumscribed margins. IMPRESSION: SUSPICIOUS OF MALIGNANCY Right breast 0.7 cm mass at 11 o'clock has increased in size with new microlobulated margins. Finding is suspicious. Recommend ultrasound guided core biopsy. Findings and recommendations were discussed with the patient by Dr. Pena at the time of imaging comp letion. This exam was interpreted at Station ID: [id number]. Electronically Signed By: Sandy Vieyra M.D., PH.D eb/:02/14/2023 13:54:58 Ultrasound BI-RADS: 4 Suspicious for malignancy BI-RADS CATEGORY: (4) - 4 Biopsy [id number] Immediate follow-up LATERALITY: (R)
== END 2023-02-14 10:08 | disposition home or self-care (01) ==
LOC: DI 10:07
PROVIDERS: ATTEND Nurse Practitioner Family
DX: N63.11 Unspecified lump in the right breast, upper outer quadrant (principal)

== ENCOUNTER 2023-02-21 08:06 | Outpatient (CLI) | payer MEDICARE, OTHER ==
[2023-02-21] MEDS ORDERED: LIDOCAINE-MPF 1% 5 ML VIAL ONE (08:27)
[2023-02-21] MEDS ORDERED: LIDOCAINE 1%-EPI 1:100000 50 ML VIAL ONE (08:27)
[2023-02-21] MEDS ORDERED: LIDOCAINE-MPF 1% 5 ML VIAL TD ONE (09:45)
[2023-02-21] MEDS ORDERED: LIDOCAINE 1%-EPI 1:100000 50 ML VIAL SUBQ SCH (10:00)
[2023-02-21] MEDS ORDERED: LIDOCAINE 1%-EPI 1:100000 50 ML VIAL SUBQ ONE (10:00)
--- NOTE | 2023-02-21 11:43 | Ultrasound Report ---
PROCEDURE: Biopsy Breast Core INDICATIONS: ABN ULTRASOUND - RT BREAST NODULE TECHNIQUE: The indications, alternatives, benefits, risks, and complications of the procedure were e xplained to the patient. Written informed consent was obtained and placed in the chart. Real-time sonography was utilized to choose the site for the percutaneous breast biopsy. The skin wa s prepped and draped in the usual sterile fashion. 1% lidocaine was infiltrated down to the site of interest. A coaxial needle was then advanced into the site of interest under direct sonographic visu alization. A biopsy apparatus was then utilized, and core biopsies were obtained. The needle was th en withdrawn; a bandage was applied to the biopsy site. COMPARISON: None. FINDINGS: Biopsy site(s): Right breast, 11:00 position, 4 cm from the nipple. Needle: Mammotome biopsy needle set was utilized. Number of passes: 4 Medications: 1% lidocaine for local anaesthesia. Complications: None. IMPRESSION: Successful ultrasound-guided breast biopsy with clip placement, Pathology results are pe nding. Reviewed by: Nilson Faust on 02/21/2023 11:41 AM PST Approved by: Nilson Faust on 02/21/2023 11:41 AM PST Station ID: [id number]
== END 2023-02-21 08:07 | disposition home or self-care (01) ==
LOC: DI 08:06
PROVIDERS: ATTEND Nurse Practitioner Family
DX: C50.411 Malignant neoplasm of upper-outer quadrant of right female breast (principal); Z17.0 Estrogen receptor positive status [ER+]
CPT/HCPCS: 19083; 77065; J3490

== ENCOUNTER 2023-10-03 15:24 | Outpatient (CLI) | payer MEDICARE, OTHER | END 2023-10-03 15:25 | disposition home or self-care (01) | LOC: LAB.S 15:24 | PROVIDERS: ATTEND Physician Assistant Medical | DX: J02.9 Acute pharyngitis, unspecified (principal) | CPT/HCPCS: 87070 ==

== ENCOUNTER 2023-10-21 09:36 | Outpatient (CLI) | payer MEDICARE, OTHER ==
--- NOTE | 2023-10-24 09:39 | Mammography Report ---
BILATERAL DIGITAL DIAGNOSTIC MAMMOGRAM 3D/2D - RIGHT BREAST POST LUMPECTOMY: 10/21/2023 CLINICAL: Post right lumpectomy. Due for bilateral exam. Comparison is made to exams dated: 09/02/2022 mammogram and 08/05/2022 mammogram - [facility]. There are scattered areas of fibroglandular density in both breasts (category b / 25%-50% glandular t issue). The right breast has expected post-operative findings of interval partial mastectomy. No significant masses, calcifications, or other findings are seen in either breast. IMPRESSION: NEGATIVE There is no mammographic evidence of malignancy. Expected post operative changes of partial mastectom y. A 1 year screening mammogram is recommended; however, shorter interval surveillance can be considered at the direction of treating oncologic/surgical team. Findings and recommendations were conveyed to the patient during today's evaluation. This exam was interpreted at Station ID: [id number]. NOTE: For mammograms, a report in lay terms will be sent to the patient. Approximately 15% of breast malignancies will not be visualized mammographically. In the management of a palpable breast mass, a negative mammogram must not discourage biopsy of a clinically suspicious lesion. Electronically Signed By: Alvin De Leon M.D. aty/:10/21/2023 10:40:12 ACR BI-RADS Category 1: Negative 3341F PARENCHYMAL PATTERN: (A) - The breast(s) demonstrate(s) scattered fibroglandular densities. BI-RADS CATEGORY: (1) - 1 RECOMMENDATION: (ANNUAL) - Recommend routine annual screening mammography. [id number] 1 year screening LATERALITY: (B)
== END 2023-10-21 09:37 | disposition home or self-care (01) ==
LOC: DI 09:36
PROVIDERS: ATTEND Internal Medicine Hematology & Oncology
DX: C50.919 Malignant neoplasm of unspecified site of unspecified female breast (principal); R92.323 Mammographic fibroglandular density, bilateral breasts

== ENCOUNTER 2025-02-23 13:00 | Inpatient (IN) ==
--- NOTE | 2025-02-23 13:06 | ED Physician Documentation ---
PD HPI ABD PAIN Stated complaint Stated Complaint: LLQ PX Chief complaint Chief Complaint: Abd Pain Additional information Additional information: 79-year-old female with history of high cholesterol and hypertension presents to emergency department for left lower quadrant abdominal pain. Only previous abdominal surgery that patient has had was a tubal ligation many years ago per patient. She comes in with sudden onset left lower quadrant abdominal pain that started around 11 AM and has increased in severity causing nausea without vomiting. No fevers or chills pain was so severe that she had to head well puller and call 911 to bring her into the emergency department where she received morphine and Zofran via EMS. She had a regular bowel movement she denies any UTI symptoms no recent fevers or chills no recent illnesses. Meds/Allgy Home Medications Ambulatory Orders Medication Instructions Recorded Confirmed lisinopril 40 mg tablet 40 mg PO DAILY 05/09/1307/27 triamterene 37.5 1 ea PO DAILY 05/09/1309/05 mg-hydrochlorothiazide 25 mg tablet zolpidem 5 mg tablet 5 mg PO QPM PRN Insomnia 09/05/24 aspirin 81 mg chewable tablet 81 mg PO DAILY 04/10/20 09/05/24 pediatric multivitamin no.228 with 1 mg PO DAILY 08/2209/05/24 fluoride 1 mg chewable tablet ([id number]-[id number]) rosuvastatin 5 mg tablet 10 mg PO DAILY 08/06/2407/27 multivitamin with minerals-folic tab PO 11/05/2411/05 acid 0.4 mg tablet exemestane 25 mg tablet 25 mg PO QDAY #90 tabs 12/06 Allergies Allergies Allergy/AdvReac Type Severity Reaction Status Date / Time codeine AdvReac Emesis Verified 02/23/25 13:11 PFSH Active Problems All Active Problems (Updated 02/23/25 @ 15:37 by Lluvia Best DNP) Retroperitoneal bleeding (Acute) Left kidney mass (Acute) Acute left flank pain (Acute) Uterine fibroid (Acute) Low back pain (Acute) Healthcare maintenance (Acute) 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 (Acute) Osteoporosis (Acute) Aromatase inhibitor use (Acute) Breast cancer, right (Acute) Angiomyolipoma of left kidney (Acute) Hematuria (Acute) Breast CA (Acute) Hypokalemia (Acute) Chest pain (Acute) Acute right flank pain (Acute) Social History Social History Do you dip or chew tobacco?: No Do you feel safe in your home environment?: Yes History of physical, verbal, emotional, or financial abuse?: No Frequency: Occasional Exam Exam Vital Signs: Vital Signs x48h Temp Pulse Resp BP Pulse Ox 02/23/25 15:13 59 L 146/66 H 97 02/23/25 13:05 37.2 C 62 16 137/98 H 96 Constitutional normal general appearance, no apparent distress, average body habitus, no limitations and alert HENMT normocephalic and head/scalp atraumatic Eyes PERRL Chest inspection of chest normal Respiratory breath sounds equal bilaterally and normal respiratory effort Cardiovascular normal heart rate noted Gastrointestinal abdomen normal to inspection, abdomen soft to palpation and tender to palpation (LLQ) Genitourinary CVA tenderness noted (Left CVA tenderness) Extremities normal to inspection and normal to palpation Skin skin color normal Results Vitals Vitals: Vital Signs - 24 hr 02/23/25 13:05 02/23/25 15:13 02/23/25 15:30 Temperature 37.2 C Temperature Source Temporal Artery Scan Pulse Rate 62 59 L Respiratory Rate 16 Blood Pressure 137/98 H 146/66 H O2 Saturation 96 97 O2 Source Room air Room air Pain Intensity 5 5 10 Oxygen O2 Source Room air Labs Labs: Laboratory Tests 02/23/25 13:30 WBC 11.0 H RBC 4.33 Hgb 13.5 Hct 40.4 MCV 93.3 MCH 31.2 H MCHC 33.4 RDW 12.2 Plt Count 207 MPV 10.4 Neut # (Auto) 8.7 H Lymph # (Auto) 1.4 L [place] # (Auto) 0.6 Eos # (Auto) 0.1 Baso # (Auto) 0.0 Absolute Nucleated RBC 0.00 Nucleated RBC % 0.0 Sodium 139 Potassium 3.3 L Chloride 104 Carbon Dioxide 26 Anion Gap 9.0 BUN 14 Creatinine 0.8 Estimated GFR (MDRD) 70 L Glucose 129 H Calcium 9.5 Magnesium 2.1 Total Bilirubin 0.6 AST 19 ALT 16 Alkaline Phosphatase 36 L Total Protein 6.9 Albumin 4.4 Globulin 2.5 Albumin/Globulin Ratio 1.8 Lipase 25 Rads (name of study) CT abdomen pelvis with contrast: Relevant Findings:: Final report received and EMP independent interpretation of test Interpretation: IMPRESSION: Hemorrhagic left renal mass lesion resulting in obstructive uropathy and moderate left hydronephrosis. Diverticulosis without diverticulitis PD Medical Decision Making ED course ED course: 79-year-old female comes into emergency department for left lower quadrant abdominal pain that started today around 11 AM. She has got mild leukocytosis, WBC 11.0 neutrophils mildly elevated 8.7 mild hypokalemia, 3.3 with no other s ignificant lab abnormalities. CT was complete for further evaluation and reveals hemorrhagic left renal mass lesion resulting in obstructive uropathy and moderate left hydronephrosis. I spoke with Dr. Jameel Bhakta on-call urologist who was able to evaluate the CT scans and says patient has a rare ruptured angiomyolipoma and will need to be hospitalized for pain control and monitoring of hemoglobin and hematocrit. I then spoke with hospitalist who has graciously agreed to admit the patient for further observation and pain management. Patient is agreeable to stay. Discharge Plan Discharge Patient Disposition: 66 [facility] DC/Xfer Condition: Fair Clinical Impression: Acute left flank pain, Left kidney mass, Retroperitoneal bleeding Prescriptions: No Action exemestane 25 mg tablet 25 mg PO QDAY Qty: 90 2RF Rx Instructions: must administer after a meal lisinopril 40 MG tablet 40 mg PO DAILY triamterene-hydrochlorothiazid 1 EACH tablet 1 ea PO DAILY zolpidem 5 MG tablet 5 mg PO QPM PRN (Reason: Insomnia) rosuvastatin 5 mg tablet 10 mg PO DAILY aspirin 81 MG tablet,chewable 81 mg PO DAILY pedi multivit no.228-fluoride [Fjioa-Orr-Iktg] 1 MG tablet,chewable 1 mg PO DAILY multivit with min-folic acid 0.4 mg tablet PO Print Language: Rwandan
[2025-02-23 13:35] LABS: HCT - HEMATOCRIT 40.4 % (37.0-47.0); HGB - HEMOGLOBIN 13.5 g/dL (12.0-16.0); MEAN PLATELET VOLUME 10.4 fL (7.9-10.8); NRBC ABSOLUTE COUNT (AUTO) 0.00 x10^3/uL; NUCLEATED RED BLOOD CELLS AUTO 0.0 /100WBC; PLT - PLATELET COUNT 207 10^3/uL (130-450); RED CELL DISTRIBUTION WIDTH 12.2 % (12.0-15.0)
[2025-02-23 13:52] LABS: ALT ALANINE AMINOTRANSFERASE 16.0 IU/L (10-60); AST ASPARTATE AMINOTRANSFERASE 19.0 IU/L (10-42); BUN - BLOOD UREA NITROGEN 14.0 mg/dL (6-20); CARBON DIOXIDE - CO2 26.0 mmol/L (21-32); CREATININE 0.8 mg/dL (0.6-1.3); GFR - MDRD 70.0 (>89)
[2025-02-23] MEDS: ONDANSETRON 4 MG/2 ML VIAL IVP STA (13:54)
[2025-02-23] MEDS: SODIUM CHLORIDE 0.9% 1,000 ML IV STA (13:55)
[2025-02-23] MEDS: POTASSIUM CHLORIDE 20 MEQ TABLET PO STA (14:54)
--- NOTE | 2025-02-23 15:05 | CT Report ---
PROCEDURE: CT Abdomen/Pelvis W INDICATIONS: LLQ Abdominal pain, diverticulitis suspected CONTRAST: OMNI 300 100 ML TECHNIQUE: Helical axial CT of the abdomen and pelvis was obtained after an intravenous contrast injection and reformatted in multiple planes. COMPARISON: 06/04/2024 FINDINGS: Lower chest: Unremarkable. Liver: No solid mass. Gallbladder: Unremarkable Biliary tree: No intrahepatic or extrahepatic dilation Spleen: No splenomegaly. Pancreas: No pancreatic ductal dilation. Adrenals: No adrenal nodule. Kidneys and ureters: Exophytic previously noted left renal mass has significantly increased in size, now measuring 4.8 x 4.2 cm, previously 3.2 x 2.0 cm. There is evidence of internal hemorrhage as well as perirenal hemorrhage resulting in left moderate hydronephrosis. Right kidney and collecting system unremarkable. Stomach, bowel and peritoneum: No gastric or small bowel dilation. No abnormal wall thickening. No pathologic free fluid. Diverticulosis without evidence of diverticulitis Lymph nodes: No central or retroperitoneal adenopathy. Vessels: No infrarenal aortic aneurysm. Patent portal vein. PELVIS Reproductive organs: Unremarkable. Bladder: No abnormal wall thickening. Pelvic lymph nodes: No pelvic adenopathy by size criteria. Bones: No aggressive osseous abnormality. Other: No significant ventral or inguinal hernia. IMPRESSION: Hemorrhagic left renal mass lesion resulting in obstructive uropathy and moderate left hydronephrosis. Diverticulosis without diverticulitis Reviewed by: Abhishek Gagnon MD on 02/23/2025 2:02 PM AKST Approved by: Abhishek Gagnon MD on 02/23/2025 2:02 PM [place] Station ID: [id number]
[2025-02-23] MEDS: HYDROmorphone 0.5 MG/0.5 ML SYRINGE IVP STA (15:30)
[2025-02-23] MEDS ORDERED: ONDANSETRON ODT 4 MG TABLET TL PRN (15:36)
[2025-02-23] MEDS ORDERED: oxyCODONE 5 MG TABLET PO PRN (15:36)
[2025-02-23] MEDS ORDERED: SODIUM CHLORIDE FLUSH 0.9% 10 ML SYRINGE IVP PRN (15:36)
[2025-02-23 15:56] LABS: GLUCOSE, URINE (UA) NEGATIVE (NEGATIVE); KETONES,URINE (UA) NEGATIVE (NEGATIVE); OCCULT BLOOD,URINE NEGATIVE (NEGATIVE)
--- OUTSIDE RECORDS SUMMARY | 2025-02-23 15:59 | EXTERNAL MEDICAL SUMMARY RPT | Continuity of Care Document ---
Author Organization [facility] Address [address] [place] [id number] Phone Problems date description facility 2025-02-23 15:46 Retroperitoneal hematoma [facility] 2025-02-23 15:46 Other specified disorders of ki dney and ureter [facility] Results/Labs test date facility value unit notes Result panel 1 NUCLEATED RED BLOOD CELLS AUTO 2025-02-23 13:30 [facility] 0.0 /100wbc (missing) BASOPHILS # (AUTO) 2025-02-23 13:30 [facility] 0.0 10 3/ul (missing) NRBC ABSOLUTE COUNT (AUTO) 2025-02-23 13:30 [facility] 0.00 x10 3/ul (missing) EOSINOPHILS # (AUTO) 2025-02-23 13:30 [facility] 0.1 10 3/ul (missing) MONOCYTES # (AUTO) 2025-02-23 13:30 [facility] 0.6 10 3/ul (missing) BILIRUBIN,TOTAL 2025-02-23 13:30 [facility] 0.6 mg/dl As of October 2022 testing method has changed, this may include reference ranges. CREATININE 2025-02-23 13:30 [facility] 0.8 mg/dl As of October 2022 testing method has changed, this may include reference ranges. LYMPHOCYTES # (AUTO) 2025-02-23 13:30 [facility] 1.4 10 3/ul (missing) ALBUMIN/GLOBULIN RATIO 2025-02-23 13:30 [facility] 1.8 (missing) (missing) MEAN PLATELET VOLUME 2025-02-23 13:30 [facility] 10.4 fl (missing) CHLORIDE 2025-02-23 13:30 [facility] 104 mmol/l As of October 2022 testing method has changed, this may include reference ranges. WHITE BLOOD COUNT 2025-02-23 13:30 [facility] 11.0 x10 3/ul (missing) RED CELL DISTRIBUTION WIDTH 2025-02-23 13:30 [facility] 12.2 % (missing) GLUCOSE 2025-02-23 13:30 [facility] 129 mg/dl As of October 2022 testing method has changed, this may include reference ranges. HGB - HEMOGLOBIN 2025-02-23 13:30 [facility] 13.5 g/dl (missing) SODIUM 2025-02-23 13:30 [facility] 139 mmol/l (missing) BUN - BLOOD UREA NITROGEN 2025-02-23 13:30 [facility] 14 mg/dl As of October 2022 testing method has changed, this may include reference ranges. ALT ALANINE AMINOTRANSFERASE 2025-02-23 13:30 [facility] 16 iu/l As of October 2022 testing method has changed, this may include reference ranges. AST ASPARTATE AMINOTRANSFERASE 2025-02-23 13:30 [facility] 19 iu/l As of October 2022 testing method has changed, this may include reference ranges. MAGNESIUM 2025-02-23 13:30 [facility] 2.1 mg/dl As of October 2022 testing method has changed, this may include reference ranges. GLOBULIN 2025-02-23 13:30 [facility] 2.5 g/dl (missing) PLT - PLATELET COUNT 2025-02-23 13:30 [facility] 207 10 3/ul (missing) LIPASE 2025-02-23 13:30 [facility] 25 u/l As of October 2022 testing method has changed, this may include reference ranges. CARBON DIOXIDE - CO2 2025-02-23 13:30 [facility] 26 mmol/l As of October 2022 testing method has changed, this may include reference ranges. POTASSIUM 2025-02-23 13:30 [facility] 3.3 mmol/l As of October 2022 testing method has changed, this may include reference ranges. MEAN CORPUSCULAR HEMOGLOBIN 2025-02-23 13:30 [facility] 31.2 pg (missing) MEAN CORPUSCULAR HGB CONC 2025-02-23 13:30 [facility] 33.4 g/dl (missing) ALKALINE PHOSPHATASE 2025-02-23 13:30 [facility] 36 iu/l As of October 2022 testing method has changed, this may include reference ranges. RED BLOOD COUNT 2025-02-23 13:30 [facility] 4.33 10 6/ul (missing) ALBUMIN 2025-02-23 13:30 [facility] 4.4 g/dl As of October 2022 testing method has changed, this may include reference ranges. HCT - HEMATOCRIT 2025-02-23 13:30 [facility] 40.4 % (missing) TOTAL PROTEIN 2025-02-23 13:30 [facility] 6.9 g/dl As of October 2022 testing method has changed, this may include reference ranges. GFR - MDRD 2025-02-23 13:30 [facility] 70 (missing) The IDMS-traceable MDRD Study Equation has been validated extensively in and populations between the ages of 18 and 70 with impaired kidney function (eGFR < 60 mL/min/1.73m2) and has shown good performance for patients with all common causes of kidney disease. Although this equation has not been validated for patients older than 70, an MDRD-derived eGFR may still be a useful tool for providers caring for patients older than 70. References: http://www.nkdep. nih.gov/lab-evalu ation/gfr/creatin ine-stand ardization, last updated June 2011. NEUTROPHILS # (AUTO) 2025-02-23 13:30 [facility] 8.7 10 3/ul (missing) ANION GAP 2025-02-23 13:30 [facility] 9.0 (missing) (missing) CALCIUM 2025-02-23 13:30 [facility] 9.5 mg/dl As of October 2022 testing method has changed, this may include reference ranges. MEAN CORPUSCULAR VOLUME 2025-02-23 13:30 [facility] 93.3 fl (missing) Social History date description facility
[2025-02-23] MEDS: ONDANSETRON 4 MG/2 ML VIAL IVP PRN (16:33)
[2025-02-23] MEDS: SODIUM CHLORIDE FLUSH 0.9% 10 ML SYRINGE IVP SCH (16:34)
[2025-02-23] MEDS: SODIUM CHLORIDE 0.9% 1,000 ML IV SCH (16:34)
--- NOTE | 2025-02-23 16:50 | CONSULTATION NOTE ---
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 This has been stable for 5 years. Given her postmenopausal state and stability of the lesion we elected to monitor this. Surprisingly, today she developed acute left lower quadrant pain and presented to the ER. CT scan was performed which showed that her AML has ruptured. Her hemoglobin is stable at 13.5. She is hemodynamically stable and afebrile. She feels okay. Mild hydronephrosis was noted in the left likely from extrinsic compression from mass effect from the bleeding. 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 MMR proteins: Loss of expression MLH1 and PMS2 MLH1 1 promoter hyper methylation: Not detected. S/p right axillary lymph node dissection on 12/11/2019. She declined right axilla radiation. Adjuvant Pembrolizumab C1D1 on 11/27/2019 C16D1 on 11/26/2020 Toxicity: Arthralgias and myalgias. Low back pain Back pain since May 2024. MRI L spine (09/12/2024): 1. Remote wedge compression fracture deformity superior endplate at L1 with 20% loss of height with mild wedge deformities at L2 and L3 without significant loss of height. 2. Moderate levoscoliosis with degenerative spondylolisthesis. 3. Multilevel degenerative disc disease results in varying degrees of foraminal stenosis with mild central canal stenosis at the L1-L2 level. Uterine fibroid US Pelvic w/Transvaginal ): Scattered areas of heterogeneous echogenicity within the uterus largest measuring 1 cm. These are most consistent with fibroids. Hyperlipidemia Hypertension Surgical History Surgical History (Updated 02/23/25 @ 17:49 by Makenzie Mckeon MD) History of lymph node dissection of axilla History of colonoscopy Family History Family History (Updated 02/23/25 @ 18:19 by Makenzie Mckeon MD) Father Alzheimers disease Mother No problems noted. Sister Diabetes Sister Breast cancer Brother Well adult exam Brother Well adult exam Daughter Brain tumor Son Well adult exam Social History Social History Smoking Status: Unknown if ever smoked Second hand tobacco smoke exposure: No Do you dip or chew tobacco?: No Do you vape?: No Living arrangement: At home Marital Status: Living Condition: With spouse/s.o. 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 Service: No Meds/Allgy Home Medications Ambulatory Orders Medication Instructions Recorded Confirmed lisinopril 40 mg tablet 40 mg PO DAILY 05/09/1307/27 triamterene 37.5 1 ea PO DAILY 05/09/1309/05 mg-hydrochlorothiazide 25 mg tablet zolpidem 5 mg tablet 5 mg PO QPM PRN Insomnia 09/05/24 aspirin 81 mg chewable tablet 81 mg PO DAILY 04/10/20 09/05/24 pediatric multivitamin no.228 with 1 mg PO DAILY 08/2209/05/24 fluoride 1 mg chewable tablet (Mgggu-Wmy-Uenk) multivitamin with minerals-folic tab PO 11/05/2411/05 acid 0.4 mg tablet exemestane 25 mg tablet 25 mg PO QDAY #90 tabs 12/06 rosuvastatin 20 mg tablet mg 02/23/25 Allergies Allergies Allergy/AdvReac Type Severity Reaction Status Date / Time codeine AdvReac Emesis Verified 02/23/25 13:11 Results Lab Results Lab results reviewed: Yes 02/23/25 13:30 02/23/25 13:30 Other Lab Results: Lab Results x24hrs 02/23/25 02/23/25 Range/Units 15:34 13:30 WBC 11.0 H (4.8-10.8) x10^3/uL RBC 4.33 (4.20-5.40) 10^6/uL Hgb 13.5 (12.0-16.0) g/dL Hct 40.4 (37.0-47.0) % MCV 93.3 (81.0-99.0) fL MCH 31.2 H (27.0-31.0) pg MCHC 33.4 (32.0-36.0) g/dL RDW 12.2 (12.0-15.0) % Plt Count 207 (130-450) 10^3/uL MPV 10.4 (7.9-10.8) fL Neut # (Auto) 8.7 H (1.5-6.6) 10^3/uL Lymph # (Auto) 1.4 L (1.5-3.5) 10^3/uL Coffee # (Auto) 0.6 (0.0-1.0) 10^3/uL Eos # (Auto) 0.1 (0.0-0.7) 10^3/uL Baso # (Auto) 0.0 (0.0-0.1) 10^3/uL Absolute Nucleated RBC 0.00 x10^3/uL Nucleated RBC % 0.0 /100WBC Sodium 139 (135-145) mmol/L Potassium 3.3 L (3.5-4.5) mmol/L Chloride 104 (101-111) mmol/L Carbon Dioxide 26 (21-32) mmol/L Anion Gap 9.0 (6-13) BUN 14 (6-20) mg/dL Creatinine 0.8 (0.6-1.3) mg/dL Estimated GFR (MDRD) 70 L (>89) Glucose 129 H (74-104) mg/dL Calcium 9.5 (8.5-10.3) mg/dL Magnesium 2.1 (1.7-2.3) mg/dL Total Bilirubin 0.6 (0.2-1.0) mg/dL AST 19 (10-42) IU/L ALT 16 (10-60) IU/L Alkaline Phosphatase 36 L (42-121) IU/L Total Protein 6.9 (6.4-8.9) g/dL Albumin 4.4 (3.2-5.5) g/dL Globulin 2.5 (2.1-4.2) g/dL Albumin/Globulin Ratio 1.8 (1.0-2.2) Lipase 25 (11-82) U/L Urine Color YELLOW Urine Clarity CLEAR (CLEAR) Urine pH 7.0 (5.0-7.5) PH Ur Specific [place] 1.010 (1.002-1.030) Urine Protein NEGATIVE (NEGATIVE) mg/dL Urine Glucose (UA) NEGATIVE (NEGATIVE) mg/dL Urine Ketones NEGATIVE (NEGATIVE) mg/dL Urine Occult Blood NEGATIVE (NEGATIVE) Urine Nitrite NEGATIVE (NEGATIVE) Urine Bilirubin NEGATIVE (NEGATIVE) Urine Urobilinogen 0.2 (NORMAL) (NORMAL) E.U./dL Ur Leukocyte Esterase NEGATIVE (NEGATIVE) Ur Microscopic Review NOT INDICATED Urine Culture Comments NOT INDICATED Diagnostic Imaging Results Diagnostic Imaging Results: positive Read independently Exam Exam Vital Signs: Vital Signs x48h Temp Pulse Pulse Resp BP BP Pulse Ox 02/23/25 16:28 36.5 C 68 16 142/79 H 95 02/23/25 16:10 59 L 133/65 H 95 02/23/25 15:13 59 L 146/66 H 97 02/23/25 13:05 37.2 C 62 16 137/98 H 96 NAD lying in bed no ecchymosis in flank or periumbilical soft abdomen slightly TTP left flank and mild firmness Conclusion/Plan Problem List (1) Retroperitoneal bleeding: Plan: 79-year-old woman with long history of 2.5 cm left angiomyolipoma presents with sudden rupture of AML. Doing well. Mild hydronephrosis on left side from extrinsic compression I recommend relative bedrest for the next 48 hours. N.p.o. at midnight. I will see her in the morning and consider stenting for her left hydronephrosis by think it is unlikely. Her pain is under good control. No blood thinning medications. At least twice daily H&H tests. We discussed any concern about significant bleeding or anemia and may require blood transfusion and/or transfer for embolization. I am optimistic we can monitor this for now. Lab Results Lab results reviewed: Yes 02/23/25 13:30 02/23/25 13:30 Diagnostic Imaging Results Diagnostic Imaging Results: positive Read independently
--- NOTE | 2025-02-23 17:35 | HISTORY & PHYSICAL EXAMINATION ---
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 She is followed by urology. She was sent to see urology in July of this year for a microhematuria evaluation.She has a known left kidney mass since 2020. She is felt to have an angiomyolipoma of the left kidney. Her first CAT scan was in November 2020. Follow-up CAT scan in June 2024 had a left complex renal mass with minimal increase in size compared to 2020.She underwent a cystoscopy in September of this year which was essentially without any pathology of the bladder. He feels that her angiomyolipomas been stable for at least 4 years looking at previous exams. He was following her for symptomatic treatment. Today she had a sudden onset of left lower quadrant abdominal pain. It was abrupt in onset. It caused severe waves of nausea. She drove to the walk-in clinic but it was a 2-hour wait so she decided to drive to the emergency room. 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 Ambulance was called and she was brought to our emergency room. Temperature is 37.2, heart rate 62, respirations 16 blood pressure 137/98. Physical exam was benign without any distress at that time. But she did have left CVA tenderness on exam. And left lower quadrant pain on abdominal exam. Laboratory studies showed her to have hypokalemia at 3.3. Normal BUN and creatinine. A glucose of 129. Liver function studies were normal. White cell count was elevated 11. Baseline hemoglobin for her is between 13.5 and 14.6. She was 13.5 in the emergency room. Platelets 207. Urinalysis was clear. No leukocyte esterase, no urobilinogen no nitrates. No occult blood. CAT scan showed that she had hemorrhage of the left renal mass and the hemorrhage was causing obstructive uropathy and moderate left hydronephrosis. She did have diverticulosis but without diverticulitis.The angiomyolipoma is bigger. She was 3.2 x 2 cm in June of this year and she is 4.8 x 4.2 cm today. I discussed the case with urology. He says that her risk consist mainly of hemorrhaging and requiring transfusion. He does not think he needs to do a stent yet but if hemorrhaging continues and obstructive uropathy continues he may have to put in a stent. He would like CBC done twice a day and for me to transfuse her as needed. She will be n.p.o. tonight in case she has to go urgently to the OR tomorrow. I did ask if this could possibly metastatic cancer and he feels that it is an angiomyolipoma. Meds/Allgy Home Medications Ambulatory Orders Medication Instructions Recorded Confirmed lisinopril 40 mg tablet 40 mg PO DAILY 05/09/1307/27 triamterene 37.5 1 ea PO DAILY 05/09/1309/05 mg-hydrochlorothiazide 25 mg tablet zolpidem 5 mg tablet 5 mg PO QPM PRN Insomnia 09/05/24 aspirin 81 mg chewable tablet 81 mg PO DAILY 04/10/20 09/05/24 pediatric multivitamin no.228 with 1 mg PO DAILY 08/2209/05/24 fluoride 1 mg chewable tablet (Utriw-Dao-Jhss) multivitamin with minerals-folic tab PO 11/05/2411/05 acid 0.4 mg tablet exemestane 25 mg tablet 25 mg PO QDAY #90 tabs 12/06 rosuvastatin 20 mg tablet mg 02/23/25 Allergies Allergies Allergy/AdvReac Type Severity Reaction Status Date / Time codeine AdvReac Emesis Verified 02/23/25 13:11 PFSH Active Problems All Active Problems (Updated 02/23/25 @ 18:31 by Makenzie Mckeon MD) Intractable nausea (Acute) Retroperitoneal bleeding (Acute) Left kidney mass (Acute) Acute left flank pain (Acute) Aromatase inhibitor use (Acute) Breast cancer, right (Acute) Angiomyolipoma of left kidney (Acute) Hypokalemia (Acute) Medical History Medical History (Updated 02/23/25 @ 18:31 by Makenzie Mckeon MD) Sicca syndrome, Sjogren's Chest pain Breast CA Osteoporosis Hematuria 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 MMR proteins: Loss of expression MLH1 and PMS2 MLH1 1 promoter hyper methylation: Not detected. S/p right axillary lymph node dissection on 12/11/2019. She declined right axilla radiation. Adjuvant Pembrolizumab C1D1 on 11/27/2019 C16D1 on 11/26/2020 Toxicity: Arthralgias and myalgias. Low back pain Back pain since May 2024. MRI L spine (09/12/2024): 1. Remote wedge compression fracture deformity superior endplate at L1 with 20% loss of height with mild wedge deformities at L2 and L3 without significant loss of height. 2. Moderate levoscoliosis with degenerative spondylolisthesis. 3. Multilevel degenerative disc disease results in varying degrees of foraminal stenosis with mild central canal stenosis at the L1-L2 level. Uterine fibroid US Pelvic w/Transvaginal ): Scattered areas of heterogeneous echogenicity within the uterus largest measuring 1 cm. These are most consistent with fibroids. Hyperlipidemia Hypertension Surgical History Surgical History (Updated 02/23/25 @ 17:49 by Makenzie Mckeon MD) History of lymph node dissection of axilla History of colonoscopy Family History Family History (Updated 02/23/25 @ 18:19 by Makenzie Mckeon MD) Father Alzheimers disease Mother No problems noted. Sister Diabetes Sister Breast cancer Brother Well adult exam Brother Well adult exam Daughter Brain tumor Son Well adult exam Social History Social History (Updated 02/23/25 @ 18:22 by Makenzie Mckeon MD) Smoking Status: Unknown if ever smoked Second hand tobacco smoke exposure: No Do you dip or chew tobacco?: No Do you vape?: No Living arrangement: At home Marital Status: Living Condition: With spouse/s.o. 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 Retired: Yes Service: No POLST Patient has POLST: No POLST on file?: No POLST CPR Status: Do Not Attempt Resuscitation (DNAR) / Allow Natural Level of Medical Intervention: Selective Treatment Review of Systems Status of ROS: 10 or more systems reviewed and unremarkable except as noted in history and below Constitutional Reports: Fatigue Eyes Reports: Blurry vision Ears, nose, mouth, and throat Reports: Nasal congestion; Denies: Throat swelling Cardiovascular Denies: chest pain, palpitations, edema, swelling of feet/ankles, Syncope, lightheadedness or shortness of breath with exertion Respiratory Denies: Shortness of breath, Cough, Sputum production or Change in phlegm color Gastrointestinal Reports: Abdominal pain (flank pain w waves of nausea), Nausea and Vomiting Genitourinary Reports: Urinary incontinence Musculoskeletal Reports: Back pain and Stiffness Integumentary/Breast Denies: Rash, Itching or Dryness Neurological Denies: Headache, General weakness, Focal weakness, Weakness in extremities, Numbness in extremities or Memory problems Psychiatric Denies: Depression, Anxiety, Mood swings, Panic attacks or Change in sleep pattern Endocrine Reports: Fatigue; Denies: Excessive urination, Excessive thirst or Cold intolerance Hematologic/Lymphatic Denies: Anemia, Easy bruising or Petechiae Allergic/Immunologic Denies: Hives, Throat swelling or Tongue swelling Prior Level of Functionality: Completely independent with activities of daily living and does not use any DME. Drives, pays bills, cleans house, and able to dress herself and feed herself. is a diabetic and has had a BKA and has spinal stenosis. Exam Exam Vital Signs: Vital Signs x48h Temp Pulse Pulse Resp BP BP Pulse Ox 02/23/25 16:28 36.5 C 68 16 142/79 H 95 02/23/25 16:10 59 L 133/65 H 95 02/23/25 15:13 59 L 146/66 H 97 02/23/25 13:05 37.2 C 62 16 137/98 H 96 Well-nourished well-developed moderately overweight elderly female who looks stated age, fatigued, and falling asleep in midsentence due to Dilaudid and Phenergan and Compazine Constitutional normal general appearance and no apparent distress HENMT normocephalic, head/scalp atraumatic and hearing grossly normal bilaterally Eyes PERRL and no scleral icterus Neck/C-Spine cervical spine nontender, cervical full ROM noted and supple Lymph no lymphadenopathy noted and no lymphedema noted Respiratory normal respiratory effort, clear to auscultation bilaterally, no wheezes, no rales, no retractions and no use of accessory muscles Cardiovascular normal heart rate noted and regular rhythm noted Gastrointestinal abdomen normal to inspection, abdomen soft to palpation and nondistended Tender, very minimally so over the left lower quadrant, left mid axillary line and left flank. No rebound. Genitourinary Left CVA tenderness Back/Pelvis spine normal to inspection Extremities normal to inspection, normal to palpation, no tenderness and full ROM Very skinny ankles. No edema whatsoever Neurology technician preventative medicine II-XII intact, no movement abnormality noted, no focal motor deficit noted, no sensory deficits noted, gait normal, speech normal and coordination normal Psychiatry oriented x3, thought process normal, cooperative, affect normal and psychomotor activity normal Skin skin color normal and no rash Conclusion/Plan Problem List (1) Acute left flank pain: Plan: Due to bleeding from angiomyolipoma of left kidney. At risk for further hemorrhaging. I placing in inpatient status due to high risk of recurrent hemorrhage. She will be monitored twice a day for hemoglobin and hematocrit, and I will transfuse if she drops below 7. She is amenable to that. Urologic surgery has seen the patient and consulted and I appreciate their input. I did worry about metastatic cancer to that kidney from either her history of breast or squamous. This is not the usual metastatic pattern. But because has been present since 2020, it really is felt to be angiomyolipoma. Repeat CAT scan will be done on February 25. 48 hours from today's CAT scan. In the meantime symptomatic control will be with Tylenol as needed, followed by oxycodone as needed, and if pain is not controlled or she is vomiting frequently, Dilaudid 0.5 mg IV push. (2) Retroperitoneal bleeding: Plan: Due to angiomyolipoma hemorrhage. Please see management and problem #1 (3) Intractable nausea: Plan: She received Zofran in the emergency room. When she got to [facility] she continued to have vomiting and has received 2 more doses of Zofran. I am going to add Compazine and Phenergan. (4) Hypertension: Plan: She takes lisinopril. 40 mg daily. Blood pressure on Medr is 142/79. I will resume her usual lisinopril and continue to monitor her blood pressure on a daily basis. Qualifiers: Hypertension type: primary hypertension Qualified Code(s): I10 - Essential (primary) hypertension (5) Hypokalemia: Plan: Noted in the ER. She was given potassium 20 mill equivalents orally. Will recheck potassium tomorrow. But because of the nausea and vomiting she may be more of a candidate for potassium riders. Lab Results Lab results reviewed: Yes 02/23/25 13:30 02/23/25 13:30 Diagnostic Imaging Results Diagnostic Imaging Results: positive Final report reviewed EKG Results EKG Interpreted Independently: No EKG Comparison: Other (No EKG done in the ED) Core Measures Anticipated LOS I expect patient to be DC'd or transferred within 96 hours.: Yes DVT/VTE - Prophylaxis VTE/DVT Device ordered at admit?: Yes
[2025-02-23] MEDS ORDERED: PROMETHAZINE 25 MG SUPP PR PRN (17:37)
[2025-02-23] MEDS: HYDROmorphone 0.5 MG/0.5 ML SYRINGE IVP PRN (17:43)
[2025-02-23] MEDS: PROCHLORPERAZINE 10 MG/2 ML VIAL IVP PRN (17:51)
--- NOTE | 2025-02-23 18:48 | ADVANCE CARE PLANNING NOTE ---
Advance Care Planning Planning Encounter Date: 02/23/25 Time: 18:46 Purpose: Establish CODE STATUS and care goals Parties in Attendance: Hospitalist and patient Decisional Capacity of the Patient: Independent with ADLs, alert and oriented to person, place, time and situation Diagnosis for Encounter (1) Acute left flank pain: (2) Retroperitoneal bleeding: Summary: Due to angiomyolipoma (3) Intractable nausea: (4) Hypertension: Qualifiers: Hypertension type: primary hypertension Qualified Code(s): I10 - Essential (primary) hypertension (5) Hypokalemia: Encounter Subjective/Patient's Story: She was born in [facility], [place]. 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 She stayed in [facility] until her teen years and then moved back to [place] and her alex and senior year of high school. She had met a boy from [facility], and 2 years later he went to go visit her. They ended up getting and they have been since they graduated high school. Her high school sweetheart's. She stayed in [place] and they raised a son and a daughter. However her 8-year-old daughter developed a brain tumor and at the age of 10. Her son lives in the home that they bought in [place]. They are close but they do not see each other often because of distance. 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 When they retired they moved back to the [place] and have been here since. She describes herself as independent. She still drives a car, pays bills, cleans house, and does not need a cane or walker. Her main disability is actually low back pain that started this last summer. But it comes and goes. While it may slow her down, it does not take away her ability to do what she wants to do. Her is disabled due to diabetes and a BKA and spinal stenosis. He is her DPOA with son being second DPOA. They have talked about the future. They have worried about what they are going to do if both of them become disabled. Where will they live? Who is going to take care of them? And do they have the finances for assisted living facility versus detention versus in-home caregiving versus moving back to [place] to live near their son? But they have made no decisions. While she does want treatment given for any acute medical problems such as GI bleed, broken hips, pneumonia, etc. she does not want to be resuscitated if she has no pulse or pressure. She says that she has an advanced directive at home to that effect. 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 She is currently being admitted for acute left lower quadrant and left flank pain. She is having a retroperitoneal bleed from an obstructed kidney/hemorrhaging angiomyolipoma. 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 She is followed by urology. She was sent to see urology in July of this year for a microhematuria evaluation.She has a known left kidney mass since 2020. She is felt to have an angiomyolipoma of the left kidney. Her first CAT scan was in November 2020. Follow-up CAT scan in June 2024 had a left complex renal mass with minimal in crease in size compared to 2020.She underwent a cystoscopy in September of this year which was essentially without any pathology of the bladder. He feels that her angiomyolipomas been stable for at least 4 years looking at previous exams. He was following her for symptomatic treatment. Today she had a sudden onset of left lower quadrant abdominal pain. It was abrupt in onset. It caused severe waves of nausea. She drove to the walk-in clinic but it was a 2-hour wait so she decided to drive to the emergency room. 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 Ambulance was called and she was brought to our emergency room. Temperature is 37.2, heart rate 62, respirations 16 blood pressure 137/98. Physical exam was benign without any distress at that time. But she did have left CVA tenderness on exam. And left lower quadrant pain on abdominal exam. Laboratory studies showed her to have hypokalemia at 3.3. Normal BUN and creatinine. A glucose of 129. Liver function studies were normal. White cell count was elevated 11. Baseline hemoglobin for her is between 13.5 and 14.6. She was 13.5 in the emergency room. Platelets 207. Urinalysis was clear. No leukocyte esterase, no urobilinogen no nitrates. No occult blood. CAT scan showed that she had hemorrhage of the left renal mass and the hemorrhage was causing obstructive uropathy and moderate left hydronephrosis. She did have diverticulosis but without diverticulitis.The angiomyolipoma is bigger. She was 3.2 x 2 cm in June of this year and she is 4.8 x 4.2 cm today. I discussed the case with urology. He says that her risk consist mainly of hemorrhaging and requiring transfusion. He does not think he needs to do a stent yet but if hemorrhaging continues and obstructive uropathy continues he may have to put in a stent. He would like CBC done twice a day and for me to transfuse her as needed. She will be n.p.o. tonight in case she has to go urgently to the OR tomorrow. I did ask if this could possibly metastatic cancer and he feels that it is an angiomyolipoma. Goals of Care: She still wants to continue treatment for any acute illness. She does not regard herself is disabled enough yet to stop wanting to get treatment. She wants to make it clear that she is a DO NOT RESUSCITATE in the event of no pulse or pressure Plan: I will fill out a POLST form with her tomorrow. Tonight she is so sleepy she kept on falling asleep. I will also ask her to have her bring in a copy of her advance directive so that we can scan it into the EMR To continue robust conversations with her and her son about the future for both of them. Where where they live if they are disabled. Code Status: Do Not Attempt Resuscitation Time spent on advance care plannin minutes
[2025-02-23 21:01] LABS: HCT - HEMATOCRIT 34.7 % (37.0-47.0); HGB - HEMOGLOBIN 11.3 g/dL (12.0-16.0); MEAN PLATELET VOLUME 10.6 fL (7.9-10.8); NRBC ABSOLUTE COUNT (AUTO) 0.00 x10^3/uL; NUCLEATED RED BLOOD CELLS AUTO 0.0 /100WBC; PLT - PLATELET COUNT 197 10^3/uL (130-450); RED CELL DISTRIBUTION WIDTH 12.3 % (12.0-15.0)
[2025-02-23] MEDS: ZOLPIDEM 5 MG TABLET PO PRN (23:35)
[2025-02-24 05:31] LABS: BUN - BLOOD UREA NITROGEN 15.0 mg/dL (6-20); CARBON DIOXIDE - CO2 27.0 mmol/L (21-32); CREATININE 0.9 mg/dL (0.6-1.3); GFR - MDRD 61.0 (>89)
--- NOTE | 2025-02-24 09:00 | PHARMACY PROGRESS NOTE ---
Best Possible Medication History Admit Date and Time: 02/23/25 1536 Home Medications Medication Instructions Recorded Confirmed Type lisinopril 40 mg tablet 40 mg PO DAILY 05/09/1302/03 History triamterene 37.5 1 ea PO DAILY 05/09/1302/24 History mg-hydrochlorothiazide 25 mg tablet zolpidem 5 mg tablet 5 mg PO QPM PRN Insomnia 02/24/25 History aspirin 81 mg chewable tablet 81 mg PO DAILY 04/10/20 02/24/25 History multivitamin with minerals-folic 1 tab PO DAILY 02/24/25 History acid 0.4 mg tablet exemestane 25 mg tablet 25 mg PO QDAY #90 tabs 12/0602/24/25 Rx rosuvastatin 20 mg tablet 20 mg PO QPM 02/23/25 History calcium 600 mg (as 2 tab PO DAILY 02/24/2502/03 History carbonate)-vitamin D3 10 mcg (400 unit) tablet cholecalciferol (vitamin D3) 50 50 mcg PO DAILY 02/24/25 History mcg (2,000 unit) tablet fenofibrate micronized 134 mg 134 mg PO QPM 02/24/25 1 04/26/24 History capsule gabapentin 300 mg capsule 300 mg PO QPM 02/24/2502/24 History Processed by: Pharmacy Medications reviewed in ED?: No Medication History completed: Yes Patient Interview: Completed Secondary Source(s): Pharmacy records and Insurance records [facility] Statement: As the person ultimately responsible for medication therapy, providers are able to order a medication from an existing home medication list in [facility] via the "Reconcile Routine" prior to Confirmation of that medication by clinical support specialist. Such practice is discouraged except when the physician, in their clinical judgment, deems that a medical need exists for a medication without regard to previous use.
[2025-02-24 09:13] LABS: HCT - HEMATOCRIT 30.1 % (37.0-47.0); HGB - HEMOGLOBIN 9.6 g/dL (12.0-16.0); MEAN PLATELET VOLUME 10.5 fL (7.9-10.8); NRBC ABSOLUTE COUNT (AUTO) 0.00 x10^3/uL; NUCLEATED RED BLOOD CELLS AUTO 0.0 /100WBC; PLT - PLATELET COUNT 195 10^3/uL (130-450); RED CELL DISTRIBUTION WIDTH 12.5 % (12.0-15.0)
--- NOTE | 2025-02-24 10:41 | PROVIDER PROGRESS NOTE ---
Subjective General Admit Date: 02/23/25 Other Other Information/Narrative: feels better, less flank pain Hg dropped 9.6 from 11.3. HDS. Exam Exam Vital Signs: Vital Signs x48h Temp Pulse Resp BP Pulse Ox 02/24/25 09:30 36.8 C 68 16 121/57 L 92 02/24/25 09:00 36.7 C 63 20 114/56 L 95 NAD Abdomen soft but slightly firm on the left left flank less firm no ecchymoses ABX Reporting Has patient been on IV antibiotics over the past 48 hours?: No Impression/Plan Problem List (1) Acute left flank pain: (2) Retroperitoneal bleeding: Plan: 79-year-old woman with long history of 2.5 cm left angiomyolipoma presents with sudden rupture of AML. Doing well. Mild hydronephrosis on left side from extrinsic compression I recommend relative bedrest for the next 24h. She is doing much better today. Her pain is under good control. No blood thinning medications. At least twice daily H&H tests, next at 5pm([place]) today We discussed any concern about significant bleeding or anemia and may require blood transfusion and/or transfer for embolization. I am optimistic we can monitor this for now. No need for cystoscopy and stent placement as of now (3) Intractable nausea: (4) Hypertension: Qualifiers: Hypertension type: primary hypertension Qualified Code(s): I10 - Essential (primary) hypertension (5) Hypokalemia:
[2025-02-24] MEDS: ACETAMINOPHEN 325 MG TABLET PO PRN (16:33)
--- NOTE | 2025-02-24 16:33 | PROVIDER PROGRESS NOTE ---
Subjective Prog Note Date Prog Note Date: 02/24/25 Prog Note Time: 16:31 Subjective Pt reports feeling: Improved Subjective: Abdominal pain has resolved since yesterday. No flank pain. No cough no shortness of breath. Between yesterday and today no interval changes or new events Current Medications Current Medications Current Medications: Current Medications Generic Name Dose Route Start Last Admin Trade Name Freq PRN Reason Stop Dose Admin Acetaminophen 650 mg 02/23/25 15:36 Acetaminophen 325 Mg Tablet PO Q4HR PRN Pain 1 to 4, or Fever Hydromorphone HCl 0.5 mg 02/23/25 15:36 02/23/25 23:35 Hydromorphone 0.5 Mg/0.5 Ml Syringe IVP 0.5 mg Q2H PRN Administration Pain 8 to 10 Sodium Chloride 1,000 mls @ 100 mls/hr 02/23/25 16:00 02/24/25 11:58 Normal Saline 0.9% IV 100 mls/hr .Q10H ANN-MARIE Administration Lisinopril 40 mg 02/24/25 09:00 02/24/25 09:36 Lisinopril 20 Mg Tablet PO 40 mg DAILY ANN-MARIE Administration Ondansetron HCl 4 mg 02/23/25 15:36 Ondansetron Odt 4 Mg Tablet TL Q6HR PRN Nausea / Vomiting Ondansetron HCl 4 mg 02/23/25 15:36 02/23/25 16:33 Ondansetron 4 Mg/2 Ml Vial IVP 4 mg Q6HR PRN Administration Nausea / Vomiting Oxycodone HCl 5 mg 02/23/25 15:36 Oxycodone 5 Mg Tablet PO Q4HR PRN Pain 5 to 7 Exemestane 25 Mg 1 each 02/24/25 13:00 02/24/25 12:29 PO 1 each DAILY ANN-MARIE Administration Prochlorperazine Edisylate 10 mg 02/23/25 17:35 02/23/25 17:51 Prochlorperazine 10 Mg/2 Ml Vial IVP 10 mg Q6HR PRN Administration Nausea / Vomiting Promethazine HCl 25 mg 02/23/25 17:37 Promethazine 25 Mg Supp MS TID PRN Nausea / Vomiting Sodium Chloride 10 ml 02/23/25 15:36 Sodium Chloride Flush 0.9% 10 Ml Syringe IVP PRN PRN NEEDED PER PROVIDER ORDERS Sodium Chloride 10 ml 02/23/25 17:00 02/24/25 16:30 Sodium Chloride Flush 0.9% 10 Ml Syringe IVP Not Given 0100,0900,1700 [facility] Zolpidem Tartrate 5 mg 02/23/25 15:45 02/23/25 23:35 Zolpidem 5 Mg Tablet PO 5 mg QPM PRN Administration Insomnia Objective Vital Signs/Intake & Output Reviewed Vital Signs: Yes Vital Signs: Vital Signs x48h Temp Pulse Resp BP BP Pulse Ox 02/24/25 16:18 36.7 C 68 20 129/68 96 02/24/25 09:30 36.8 C 68 16 121/57 L 92 02/24/25 09:00 36.7 C 63 20 114/56 L 95 Intake & Output: Intake & Output 02/21/25 02/22/25 02/23/25 02/24/25 23:59 23:59 23:59 23:59 Intake Total 1450 / 1450 2573 / 2573 Output Total 650 / 650 950 / 950 Balance 800 / 800 1623 / 1623 Weight (kg) 80 kg Objective General Appearance: positive No acute distress (Pleasant, well nourished, well developed white female who looks her stated age. 5 foot 4 inches tall, 80 kg) Eyes Bilateral: positive PERRL and EOMI ENT: positive Pharynx nml and No signs of dehydration Neck: positive No JVD; negative Carotid bruit Respiratory: positive Chest non-tender, No respiratory distress and Breath sounds nml Cardiovascular: positive Regular rate & rhythm, No murmur and No gallop Abdomen: positive Non-tender, No organomegaly and Nml bowel sounds Skin: positive Warm and Dry Extremities: positive Non-tender, Full ROM and Nml appearance; negative Pedal edema or Calf tenderness Neurologic/Psychiatric: positive Oriented x3, CN's nml (2-12) and Motor nml Lab Results 02/24/25 09:01 02/24/25 04:34 Other Labs: Lab Results x24hrs 02/24/25 02/24/25 02/23/25 Range/Units 09:01 04:34 20:56 WBC 10.8 12.2 H (4.8-10.8) x10^3/uL RBC 3.16 L 3.67 L (4.20-5.40) 10^6/uL Hgb 9.6 L 11.3 L (12.0-16.0) g/dL Hct 30.1 L 34.7 L (37.0-47.0) % MCV 95.3 94.6 (81.0-99.0) fL MCH 30.4 30.8 (27.0-31.0) pg MCHC 31.9 L 32.6 (32.0-36.0) g/dL RDW 12.5 12.3 (12.0-15.0) % Plt Count 195 197 (130-450) 10^3/uL MPV 10.5 10.6 (7.9-10.8) fL Neut # (Auto) 7.6 H 10.2 H (1.5-6.6) 10^3/uL Lymph # (Auto) 2.2 1.2 L (1.5-3.5) 10^3/uL Duc[place]ne # (Auto) 0.9 0.7 (0.0-1.0) 10^3/uL Eos # (Auto) 0.0 0.0 (0.0-0.7) 10^3/uL Baso # (Auto) 0.0 0.0 (0.0-0.1) 10^3/uL Absolute Nucleated RBC 0.00 0.00 x10^3/uL Nucleated RBC % 0.0 0.0 /100WBC Sodium 138 (135-145) mmol/L Potassium 3.9 (3.5-4.5) mmol/L Chloride 106 (101-111) mmol/L Carbon Dioxide 27 (21-32) mmol/L Anion Gap 5.0 L (6-13) BUN 15 (6-20) mg/dL Creatinine 0.9 (0.6-1.3) mg/dL Estimated GFR (MDRD) 61 L (>89) Glucose 136 H (74-104) mg/dL Calcium 8.3 L (8.5-10.3) mg/dL Assessment/Plan Problem List (1) Acute left flank pain: Impression: And left lower quadrant pain due to #2. Both resolved. Bleeding or blood went down into her paracolic gutter is most likely what caused the left lower quadrant pain. See #2 for plan (2) Retroperitoneal bleeding: Impression: Due to angiomyolipoma spontaneous bleeding. Urology is following this patient and I appreciate their input. Serial hemoglobins have been done. She was admitted at 13.5. Went to 11.3 last night. This morning she is 9.6. I will continue to check her hemoglobin twice a day. CT is planned for tomorrow. Unless she is continuing to bleed and obstruction is worse, she most most likely be able to go home. However urology is still evaluating to make sure he does not need to put in a stent. If she does need definitive treatment for continued bleeding, she would need to transfer to higher level of care for embolic therapy. (3) Intractable nausea: Impression: Resolved.We did see a mildly elevated calcium in her past medical history on August 06, 2024. However subsequent calciums is normal. I say this in the context of "stones, bones, and abdominal groans from hypercalcemia. This is not her problem. (4) Hypertension: Impression: On her home medications. This morning she was a little hypotensive at 108/47. But by this afternoon 129/68. No tachycardia, no diaphoresis no respiratory distress. I will continue her same home medications. Qualifiers: Hypertension type: primary hypertension Qualified Code(s): I10 - Essential (primary) hypertension (5) Hypokalemia: Impression: Supplemented by me yesterday. Today's potassium was 3.9.
[2025-02-24 21:07] LABS: HCT - HEMATOCRIT 30.6 % (37.0-47.0); HGB - HEMOGLOBIN 9.7 g/dL (12.0-16.0); MEAN PLATELET VOLUME 10.8 fL (7.9-10.8); NRBC ABSOLUTE COUNT (AUTO) 0.00 x10^3/uL; NUCLEATED RED BLOOD CELLS AUTO 0.0 /100WBC; PLT - PLATELET COUNT 192 10^3/uL (130-450); RED CELL DISTRIBUTION WIDTH 12.6 % (12.0-15.0)
[2025-02-25 05:04] LABS: BUN - BLOOD UREA NITROGEN 13.0 mg/dL (6-20); CARBON DIOXIDE - CO2 26.0 mmol/L (21-32); CREATININE 0.8 mg/dL (0.6-1.3); GFR - MDRD 70.0 (>89)
--- NOTE | 2025-02-25 07:45 | PROVIDER PROGRESS NOTE ---
Subjective General Admit Date: 02/23/25 Other Other Information/Narrative: Patient had some continued pain in the left side last night. She is doing well. Hemoglobin stable. Feels otherwise quite well. 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 Doing well. Mild hydronephrosis on left side from extrinsic compression Doing very well today. Her pain is under good control. Would send home with some norco or tramadol, 10 pills max. Along with ondansetron. No blood thinning medications. At least twice daily H&H tests next at 9am We discussed any concern about significant bleeding or anemia and may require blood transfusion and/or transfer for embolization. I am optimistic we can monitor this for now. CT scan with contrast today. I will evaluate. No need for cystoscopy and stent placement as of now If all going well she will follow-up in [address] scan to see me. (3) Intractable nausea: (4) Hypokalemia:
[2025-02-25] MEDS ORDERED: iohexoL-300 150 ML BOTTLE ONE (07:51)
[2025-02-25] MEDS: iohexoL-300 150 ML BOTTLE IVP ONE (08:35)
--- NOTE | 2025-02-25 09:11 | CT Report ---
PROCEDURE: CT Abdomen W/WO INDICATIONS: bleeding left renal mass w hydro CONTRAST: OMNI 300 100 ML TECHNIQUE: CT scan of the abdomen was performed, with and without contrast. Intravenous contrast media was administered. Images recorded and evaluated at appropriate window settings. Reformats: coronal and sagittal. For radiation dose reduction, the following was used: automated exposure control, adjustment of mA and/or kV according to patient size. COMPARISON: None. FINDINGS: Image quality: Diagnostic. Lower chest: Small left pleural effusion. Small hiatal hernia. Liver: No solid mass. Gallbladder: No radiopaque stones or wall thickening. Biliary tree: No intrahepatic or extrahepatic dilation, accounting for age. Spleen: No splenomegaly. Pancreas: No pancreatic ductal dilation. Adrenals: No adrenal nodule. Kidneys and ureters: There is a hematoma in the left perirenal space measuring approximately 9.6 x 3.6 x 6.4 cm. No evidence of active hemorrhage. Underlying masslike lesion is obscured by hemorrhage there is a filling defect within the left-sided renal collecting system, extending into the proximal ureter. Renal vein is widely patent. Stomach, bowel and peritoneum: No gastric or small bowel dilation. No abnormal wall thickening. No pathologic free fluid. Lymph nodes: No central or retroperitoneal adenopathy. Vessels: No infrarenal aortic aneurysm. Patent portal vein. Bones: No aggressive osseous abnormality. Other: No significant ventral hernia. IMPRESSION: Left perirenal hematoma measuring 9.6 x 3.6 x 6.4 cm, without evidence of active hemorrhage. This has increased in size compared with 02/23/2025. Findings likely indicate ruptured mass as compared with 06/04/2024. Filling defect within the left renal collecting system, extending into the proximal ureter. Findings may indicate a urothelial malignancy versus hemorrhagic products. Recommend urology consultation. Small left pleural effusion. Reviewed by: Nilson Faust MD on 02/25/2025 9:07 AM [facility] Approved by: Nilson Faust MD on 02/25/2025 9:07 AM [facility] Station ID: [id number]
[2025-02-25 09:19] LABS: HCT - HEMATOCRIT 26.8 % (37.0-47.0); HGB - HEMOGLOBIN 8.5 g/dL (12.0-16.0); MEAN PLATELET VOLUME 10.2 fL (7.9-10.8); NRBC ABSOLUTE COUNT (AUTO) 0.00 x10^3/uL; NUCLEATED RED BLOOD CELLS AUTO 0.0 /100WBC; PLT - PLATELET COUNT 150 10^3/uL (130-450); RED CELL DISTRIBUTION WIDTH 12.8 % (12.0-15.0)
[2025-02-25] MEDS ORDERED: ACETAMINOPHEN 500 MG TABLET PO SCH (12:00)
--- NOTE | 2025-02-25 13:15 | Discharge Summary ---
"Discharge Summary Admit Date: 02/23/25 Discharge Date: 02/25/25 Discharging Provider: Mello Maldonado Primary Care Provider: Priscila Martini Code Status: Attempt Resuscitation Discharge Facility Name: Home DIAGNOSES Discharge Diagnoses with Status of Each Condition: ## Acute left flank pain, improved ## Retroperitoneal bleeding, improved Patient presented with acute left flank pain she was found to have retroperitoneal bleeding from a ruptured angiomyolipoma. Pain was managed with narcotics. Her blood counts were trended while she was here, she did not have any significant drop in her hemoglobin. On day of discharge, her hemoglobin was 8.5. Her vital signs remained stable. CT scan was completed on admission and repeated on day of discharge. It shows an expanding hematoma, but no acute bleeding. No worsened hydronephrosis. Discussed with urology, they feel it is appropriate for ongoing outpatient monitoring. They will monitor CT scan in 3 months - Urology ordered CT scan of abdomen pelvis with contrast in 3 months - Recommend monitoring H/H in the next 2 weeks with primary care provider - Patient is having labs drawn at the [facility] related to her Zometa infusions, this would be appropriate timeline to surveille - Recommend scheduled Tylenol 1 g 3 times daily - Sending with oral Dilaudid 1 to 2 mg for breakthrough pain, patient says oxycodone makes her nauseous - Pain should begin to subside over the coming days - If recurs, will need to go for IR embolization ## Intractable nausea, Resolved Treated with antiemetics. Possibly related to her pain or narcotics. ## Hypertension, Chronic, stable She remained stable on her home antihypertensives during this hospitalization. ## Hypokalemia, Resolved Required repletion during this hospitalization. 3.3 on admission, improved appropriately. K was 3.5 on day of discharge. 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 She is followed by urology. She was sent to see urology in July of this year for a microhematuria evaluation.She has a known left kidney mass since 2020. She is felt to have an angiomyolipoma of the left kidney. Her first CAT scan was in November 2020. Follow-up CAT scan in June 2024 had a left complex renal mass with minimal increase in size compared to 2020.She underwent a cystoscopy in September of this year which was essentially without any pathology of the bladder. He feels that her angiomyolipomas been stable for at least 4 years looking at previous exams. He was following her for symptomatic treatment. Today she had a sudden onset of left lower quadrant abdominal pain. It was abrupt in onset. It caused severe waves of nausea. She drove to the walk-in clinic but it was a 2-hour wait so she decided to drive to the emergency room. 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 Ambulance was called and she was brought to our emergency room. Temperature is 37.2, heart rate 62, respirations 16 blood pressure 137/98. Physical exam was benign without any distress at that time. But she did have left CVA tenderness on exam. And left lower quadrant pain on abdominal exam. Laboratory studies showed her to have hypokalemia at 3.3. Normal BUN and creatinine. A glucose of 129. Liver function studies were normal. White cell count was elevated 11. Baseline hemoglobin for her is between 13.5 and 14.6. She was 13.5 in the emergency room. Platelets 207. Urinalysis was clear. No leukocyte esterase, no urobilinogen no nitrates. No occult blood. CAT scan showed that she had hemorrhage of the left renal mass and the hemorrhage was causing obstructive uropathy and moderate left hydronephrosis. She did have diverticulosis but without diverticulitis.The angiomyolipoma is bigger. She was 3.2 x 2 cm in June of this year and she is 4.8 x 4.2 cm today. I discussed the case with urology. He says that her risk consist mainly of hemorrhaging and requiring transfusion. He does not think he needs to do a stent yet but if hemorrhaging continues and obstructive uropathy continues he may have to put in a stent. He would like CBC done twice a day and for me to transfuse her as needed. She will be n.p.o. tonight in case she has to go urgently to the OR tomorrow. I did ask if this could possibly metastatic cancer and he feels that it is an angiomyolipoma. CONSULTS | PROCEDURES Consultations: Urology Procedures: CT abdomen pelvis with contrast 02/23 CT abdomen with/wo contrast 02/25 HOSPITAL COURSE Hospital Course: Patient presented with sudden onset left lower quadrant flank pain. She has a known history of angiomyolipoma. Early imaging reveals that this ruptured with a retroperitoneal hematoma. Her blood counts remained stable for the most part during her hospitalization. She has improving pain, but with some paroxysmal worsening on the day of discharge in the butting saw operator. Her repeat imaging from 02/25 does not show active bleeding. No worsening hydronephrosis. Her Hgb is 8.5 on day of dishcarge, this came down only slightly from 9.5 on days prior. Her vital signs remained stable. Discussed extensively with urology on the day of discharge. Patient was examined and evaluated on day of discharge. She is not having any flank pain anymore as of this afternoon. She is requesting some more narcotics to make sure she does not have a flare like she did before without treatment at home. Urology feels like it is reasonable to continue outpatient management for this. She has no signs of active bleeding. Should monitor H/H with the next 2 weeks. Patient has some outpatient labs already scheduled associated with her Zometa infusion. This would be an appropriate interval it sounds like. Urology will surveilled with a repeat CT abdomen pelvis in the next 3 months. If her symptoms are to recur or worsen and there is evidence of further retroperitoneal bleeding, or if her H/H drops, she likely will need to go to a center with interventional radiology where she can get embolization. ALLERGIES Allergies Allergy/AdvReac Type Severity Reaction Status Date / Time codeine AdvReac Emesis Verified 02/23/25 13:11 MEDICATIONS Ambulatory Orders Medication Instructions Recorded Confirmed lisinopril 40 mg tablet 40 mg PO DAILY 05/09/1302/03 triamterene 37.5 1 ea PO DAILY 05/09/1302/24 mg-hydrochlorothiazide 25 mg tablet zolpidem 5 mg tablet 5 mg PO QPM PRN Insomnia 02/24/25 aspirin 81 mg chewable tablet 81 mg PO DAILY 04/10/20 02/24/25 multivitamin with minerals-folic 1 tab PO DAILY 02/24/25 acid 0.4 mg tablet exemestane 25 mg tablet 25 mg PO QDAY #90 tabs 12/0602/24/25 rosuvastatin 20 mg tablet 20 mg PO QPM 02/23/25 calcium 600 mg (as 2 tab PO DAILY 02/24/2502/03 carbonate)-vitamin D3 10 mcg (400 unit) tablet cholecalciferol (vitamin D3) 50 50 mcg PO DAILY 02/24/25 mcg (2,000 unit) tablet fenofibrate micronized 134 mg 134 mg PO QPM 02/24/25 1 04/26/24 capsule gabapentin 300 mg capsule 300 mg PO QPM 02/24/2502/24 acetaminophen 500 mg tablet 1,000 mg (2 x 500 mg) PO T ID #0 02/25/25 (Tylenol Extra Strength) tabs hydromorphone 2 mg tablet 1 mg (1/2 x 2 mg) PO Q6HR LA N 02/25/25 breakthrough pain #30 tabs tamsulosin 0.4 mg capsule 0.4 mg PO HS #30 caps PHYSICAL EXAM AT DISCHARGE Vital Signs: Vital Signs x48h Temp Pulse Resp BP Pulse Ox 02/25/25 14:12 36.7 C 72 16 120/64 95 LABS 02/25/25 09:13 02/25/25 04:30 DIAGNOSTIC IMAGING Diagnostic Imaging Results: Final report reviewed and Read independently Diagnostic Imaging Results Comments: CT abdomen pelvis with contrast from 02/23 Hemorrhagic left renal mass measuring 4.8 x 4.2 cm. Increase in size, suggestive of perirenal hemorrhage. Resultant obstructive uropathy with moderate left hydronephrosis. Diverticulosis without diverticulitis. CT abdomen with and without contrast from 02/25 Left perirenal hematoma now measuring 9.6 x 3.6 x 6.4 cm without evidence of active hemorrhage. Increased in size compared to 02/23. Likely indicate ruptured mass as compared to findings from earlier this year. There is filling defect within the left renal collecting system that extends to the proximal ureter, urothelial malignancy versus hemorrhagic products. FOLLOW UP Follow Up: Follow-up with urology Follow-up with primary care in the next 2 to 4 weeks for lab monitoring and to assess for need for further pain medications TIME SPENT Time Spent in Discharge (Minutes): 48 Discharge Plan Discharge Patient Disposition: 01 Home, Self Care Condition: Stable Medically Cleared Date:: 02/25/25 Prescriptions: New tamsulosin 0.4 mg capsule 0.4 mg PO HS Qty: 30 2RF Rx Instructions: Helps with flank pain from obstruction acetaminophen [Tylenol Extra Strength] 500 mg Tablet 1,000 mg PO TID Qty: 0 0RF hydromorphone 2 mg Tablet 1 mg PO Q6HR PRN (Reason: breakthrough pain) Qty: 30 0RF Continued exemestane 25 mg tablet 25 mg PO QDAY Qty: 90 2RF Rx Instructions: must administer after a meal lisinopril 40 MG tablet 40 mg PO DAILY triamterene-hydrochlorothiazid 1 EACH tablet 1 ea PO DAILY zolpidem 5 MG tablet 5 mg PO QPM PRN (Reason: Insomnia) aspirin 81 MG tablet,chewable 81 mg PO DAILY rosuvastatin 20 mg tablet 20 mg PO QPM fenofibrate micronized 134 mg capsule 134 mg PO QPM gabapentin 300 mg capsule 300 mg PO QPM cholecalciferol (vitamin D3) 50 mcg (2,000 unit) tablet 50 mcg PO DAILY calcium carbonate-vitamin D3 600 mg-10 mcg (400 unit) tablet 2 tab PO DAILY multivit with min-folic acid 0.4 mg tablet 1 tab PO DAILY Activity Restrictions: Activity as Tolerated Diet: Regular Health Concerns: You have been treated forretroperitoneal bleedingcaused by a kidney growth called an angiomyolipoma. This is a benign (non-cancerous) tumor that can sometimes bleed into the space behind your abdominal organs. Treatment may have included observation, a procedure to block the bleeding blood vessel (embolization), or surgery. What to expect after discharge: * You may feel tired for several days. Mild pain or discomfort in your side or back is common. * You are being discharged with some pain medications, please continue to take Tylenol 1000 mg 3 times daily and limit your use of narcotics. Activity: * Rest at home for the next few days. Avoid heavy lifting, strenuous exercise, or contact sports for at least 2 weeks, or until cleared by your doctor. * Gradually increase activity as you feel better. Medications: * Take all prescribed medications as directed. * Avoid non-steroidal anti-inflammatory drugs (NSAIDs) unless approved, as these can increase bleeding risk. Follow-up: * Attend all scheduled appointments for blood tests and imaging (such as ultrasound or CT scan) to check your kidney and make sure there is no new bleeding or tumor growth. * Dr. Bhakta has scheduled a CT scan for 3 months * Have your blood counts checked within the next 2 to 4 weeks. * Your doctor may monitor your kidney function and blood counts. When to seek help: Call your doctor or go to the emergency room if you have: * Sudden or severe pain in your side, back, or abdomen * Dizziness, fainting, or rapid heartbeat * Blood in your urine * Fever over 101F (38.3C) that does not improve * Swelling or pain at the procedure site that worsens Prevention and long-term care: * Most angiomyolipomas do not cause problems, but larger tumors may bleed again. Your doctor will discuss if further treatment or monitoring is needed. * If you have a genetic condition called tuberous sclerosis, regular follow-up is important. Print Language: Azerbaijani Patient Instructions: Hydromorphone, Anemia Follow-up Care: Jaemel Bhakta MD [Provider Admit Priv/Credential, Urology] Referral Note: You will be contacted for follow-up in roughly [address] scan PRISCILA MARTINI ARNP [Primary Care Provider, Nurse Practitioner] Vitals documented within 30 minutes of discharge?: Yes"
[2025-02-25] MEDS: ACETAMINOPHEN 500 MG TABLET PO SCH (13:32)
[2025-02-25 14:12] VITALS: BP 120/64; TEMP 98.1; O2SAT 95
== END 2025-02-25 14:19 | disposition home or self-care (01) | DRG 372 ==
LOC: ED 13:00 → MS2 15:36 → SUATTDRO 15:36 → MS2 16:14
PROVIDERS: ADMIT Specialist; ATTEND Student in an Organized Health Care Education/Training Program

== ENCOUNTER 2025-03-12 16:41 | Inpatient (IN) ==
[2025-03-12 17:06] LABS: HCT - HEMATOCRIT 37.4 % (37.0-47.0); HGB - HEMOGLOBIN 12.5 g/dL (12.0-16.0); MEAN PLATELET VOLUME 10.0 fL (7.9-10.8); NRBC ABSOLUTE COUNT (AUTO) 0.00 x10^3/uL; NUCLEATED RED BLOOD CELLS AUTO 0.0 /100WBC; PLT - PLATELET COUNT 443 10^3/uL (130-450); RED CELL DISTRIBUTION WIDTH 13.2 % (12.0-15.0)
[2025-03-12] MEDS: SODIUM CHLORIDE 0.9% 1,000 ML IV STA ×3 (17:10→19:17)
[2025-03-12] MEDS: ONDANSETRON 4 MG/2 ML VIAL IVP STA (17:10)
--- NOTE | 2025-03-12 17:18 | ED Physician Documentation ---
History of Present Illness Stated complaint Stated Complaint: N/V/D Chief complaint Chief Complaint: Abd Pain History obtained from History obtained from: Patient History of Present Illness Timing: Prior to arrival Additonal information Additional information: Patient is a 79-year-old female presenting to the emergency department with concerns for nausea vomiting that came on today. 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 Patient was monitored overnight in the hospital and eventually discharged after nausea vomiting and pain became controlled. She notes she was feeling better when she went home but over the last week has progressively worsened. She had labs drawn recently at her [facility] clinic to monitor her white count in the outpatient setting. She has past medical history of hypertension hyperlipidemia and history of breast cancer currently on Zometa with Dr. Adam every 6 months and oral me dication at home. She denies any fevers she describes a burning sensation to her abdominal region. She has 1 episode of a large amount of diarrhea this afternoon as well as multiple episodes of nausea and vomiting that have worsened around 11:00. She has no other history of abdominal surgeries other than a bilateral salpingectomy. Meds/Allgy Home Medications Ambulatory Orders Medication Instructions Recorded Confirmed lisinopril 40 mg tablet 40 mg PO DAILY 05/09/1312/27 triamterene 37.5 1 ea PO DAILY 05/09/1303/12 mg-hydrochlorothiazide 25 mg tablet zolpidem 5 mg tablet 5 mg PO QPM PRN Insomnia 03/12/25 aspirin 81 mg chewable tablet 81 mg PO DAILY 04/10/20 03/12/25 multivitamin with minerals-folic 1 tab PO DAILY 03/12/25 acid 0.4 mg tablet exemestane 25 mg tablet 25 mg PO QDAY #90 tabs 12/0603/12/25 rosuvastatin 20 mg tablet 20 mg PO QPM 02/23/25 cholecalciferol (vitamin D3) 50 50 mcg PO DAILY 03/12/25 mcg (2,000 unit) tablet fenofibrate micronized 134 mg 134 mg PO QPM 02/24/25 1 05/13/24 capsule gabapentin 300 mg capsule 300 mg PO QPM 02/24/2503/12 hydromorphone 2 mg tablet 1 mg (1/2 x 2 mg) PO Q6HR [place] N 02/25/25 03/12/25 breakthrough pain #30 tabs tamsulosin 0.4 mg capsule 0.4 mg PO HS #30 caps 03/12/25 acetaminophen 500 mg tablet 1,000 mg PO TID PRN fever or pain 03/12/25 03/12/25 (Tylenol Extra Strength) xylitol 500 mg mucosal adhesive 500 mg mucous membrane PRN PRN dry 03/12/25 03/12/25 tablet (XyliMelts) mouth Allergies Allergies Allergy/AdvReac Type Severity Reaction Status Date / Time codeine AdvReac Emesis Verified 03/12/25 16:48 PFSH Active Problems All Active Problems (Updated 03/12/25 @ 21:09 by ) Poor appetite (Acute) Elevated LFTs (Acute) Angioedema (Acute) ZOË (acute kidney injury) (Acute) Diarrhea (Acute) Abdominal pain (Acute) Vomiting (Acute) Left kidney mass (Acute) Acute left flank pain (Acute) Aromatase inhibitor use (Acute) Breast cancer, right (Acute) Angiomyolipoma of left kidney (Acute) Medical History Medical History (Updated 03/12/25 @ 21:09 by ) Sicca syndrome, Sjogren's Chest pain Breast CA Osteoporosis Hematuria 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 MMR proteins: Loss of expression MLH1 and PMS2 MLH1 1 promoter hyper methylation: Not detected. S/p right axillary lymph node dissection on 12/11/2019. She declined right axilla radiation. Adjuvant Pembrolizumab C1D1 on 11/27/2019 C16D1 on 11/26/2020 Toxicity: Arthralgias and myalgias. Low back pain Back pain since May 2024. MRI L spine (09/12/2024): 1. Remote wedge compression fracture deformity superior endplate at L1 with 20% loss of height with mild wedge deformities at L2 and L3 without significant loss of height. 2. Moderate levoscoliosis with degenerative spondylolisthesis. 3. Multilevel degenerative disc disease results in varying degrees of foraminal stenosis with mild central canal stenosis at the L1-L2 level. Uterine fibroid US Pelvic w/Transvaginal ): Scattered areas of heterogeneous echogenicity within the uterus largest measuring 1 cm. These are most consistent with fibroids. Hyperlipidemia Hypertension Surgical History Surgical History History of lymph node dissection of axilla History of colonoscopy Family History Family History (Updated 02/23/25 @ 18:19 by Makenzie Mckeon MD) Father Alzheimers disease Mother No problems noted. Sister Diabetes Sister Breast cancer Brother Well adult exam Brother Well adult exam Daughter Brain tumor Son Well adult exam Social History Social History Smoking Status: Unknown if ever smoked Second hand tobacco smoke exposure: No Do you dip or chew tobacco?: No Do you vape?: No Living arrangement: At home Marital Status: Living Condition: With spouse/s.o. 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 HENMT normocephalic Moist mucous membranes Chest inspection of chest normal Respiratory breath sounds equal bilaterally, normal respiratory effort and clear to au scultation bilaterally Cardiovascular normal heart rate noted, regular rhythm noted, no gallop and no rub Gastrointestinal abdomen normal to inspection Abdomen tender diffusely with guarding and rebound on palpation. No obvious palpable mass significantly tender on examination Results Vitals Vitals: Vital Signs - 24 hr 03/12/25 16:48 03/12/25 17:21 03/12/25 19:52 Temperature 36.1 C L Temperature Source Temporal Artery Scan Pulse Rate 65 58 L 63 Respiratory Rate 20 18 14 Blood Pressure 133/83 H 127/64 125/87 O2 Saturation 96 97 95 O2 Source Room air Room air Room air Pain Intensity 6 2 Oxygen O2 Source Room air EKG (time done) 1722: EKG releavant findings:: EKG personally interpreted by author of this note. Relevant findings are: Rate: Rate (enter#) (71 bpm) Rhythm: NSR [place]: Normal Intervals: Normal [place] QRS: QRS normal Ischemia: Normal ST segments Compare to prior EKG: Unchanged from prior EKG Computer interpretation: Agree with computer 1739: EKG releavant findings:: EKG personally interpreted by author of this note. Relevant findings are: Rate: Rate (enter#) (63 bpm) Rhythm: NSR [place]: Normal Intervals: Normal [place] QRS: QRS normal Ischemia: Normal ST segments Compare to prior EKG: Unchanged from prior EKG Computer interpretation: Agree with computer Labs Labs: Laboratory Tests 03/12/25 03/12/25 17:00 19:41 WBC 13.3 H RBC 4.16 L Hgb 12.5 Hct 37.4 MCV 89.9 MCH 30.0 MCHC 33.4 RDW 13.2 Plt Count 443 MPV 10.0 Neut # (Auto) 11.2 H Lymph # (Auto) 1.0 L Lucas # (Auto) 0.6 Eos # (Auto) 0.5 Baso # (Auto) 0.0 Absolute Nucleated RBC 0.00 Band Neuts % (Manual) Not Reportable Abnorm Lymph % (Manual) Not Reportable Nucleated RBC % 0.0 Neutrophils # (Manual) Not Reportable Lymphocytes # (Manual) Not Reportable Monocytes # (Manual) Not Reportable Eosinophils # (Manual) Not Reportable Basophils # (Manual) Not Reportable Differential Comment MANUAL=AUTO DIFF Manual Slide Review Indicated Platelet Estimate NORMAL (130-450,000) Platelet Morphology 1+ LARGE PLATELETS RBC Morph Micro Appear NORMAL APPEARANCE Sodium 135 Potassium 3.2 L Chloride 98 L Carbon Dioxide 22 Anion Gap 15.0 H BUN 30 H Creatinine 1.4 H Estimated GFR (MDRD) 36 L Glucose 164 H Lactic Acid 0.9 Calcium 10.8 H Total Bilirubin 1.0 AST 47 H ALT 84 H Alkaline Phosphatase 206 H Total Protein 7.3 Albumin 4.0 Globulin 3.3 Albumin/Globulin Ratio 1.2 Lipase 32 PD Medical Decision Making ED course Complexity details: reviewed old records and reviewed results ED course: Patient patient is a 79-year-old female presenting to the emergency department with an episode of nausea vomiting and abdominal pain that occurred shortly prior to arrival. Patient's history remarkable as she was recently here on 1120 for recent retroperitoneal hematoma from ruptured kidney cyst. Patient was admitted and monitored closely in the hospital for a few days followed with urology. She is able to be discharged home and was doing significantly better until few days ago when she began to develop some lower abdominal pain and feeling nauseous. Symptoms worsened today with sudden onset of significant pain nausea vomiting and diarrhea. Patient has persistent nausea but she is tolerating p.o. and she is not having any vomiting with good passage of bowel movements. CBC is remarkable for slightly elevated white count of 13.3. She has a slightly decreased potassium at 3.2 and an anion gap of 15 consistent with dehydration she has a slight ZOË with a GFR of 36 baseline appears closer to 70. AST and ALT are slightly elevated at 47 and 84. Urine analysis pending at this time. But lactic acid is within normal range. CT abdomen pelvis: 1. Mural hyperenhancement and mural thickening of the small bowel predominantly involves the jejunum and ileum, this is nonspecific but can be seen with angioedema of the small bowel secondary to KONSTANTIN inhibitor, recommend correlation with serum lactate level and white blood cell count. This is new when compared to the prior exam on 02/25/2025 2. Interval decrease in size of the left perinephric hematoma. The underlying mass is obscured by the hemorrhage. 3. Similar mild to moderate left hydronephrosis. I received a call from the radiologist on this finding and reached out to hospitalist. As patient's lactic acid was within normal range and her pain is improving here in the ED. Hospitalist recommendation by Harry ng for general surgery consult for this finding. I reached out to general surgery and they are agreeable with patient staying and do not believe it is a surgical consult. They will touch base with hospitalist for confirmation as well. I did note to on-call surgeon Dr. Choi that patient was not having passing glass but she has had large amounts of diarrhea today and she feels empty. She has no persistent vomiting here in the ED within the last hour and is feeling better. She is requesting some more nausea meds while here in the ED though. This did appear similar to her previous day with recurrent nausea symptoms. Patient agreeable with admission. I did reach out to hospitalist and they had reviewed with Dr. Jimbo woody and he does not believe it is small bowel obstruction. I informed nurse practitioner Harry that patient was not passing gas at this time but vomiting seems to have improved other than some nausea symptoms. He is agreeable with plan and can take patient to the floor. Discharge Plan Discharge Patient Disposition: [facility] DC/Xfer Condition: Good Clinical Impression: Vomiting, Abdominal pain, Diarrhea
[2025-03-12 17:21] LABS: SLIDE REVIEW? Indicated
[2025-03-12 17:23] LABS: ALT ALANINE AMINOTRANSFERASE 84.0 IU/L (10-60); AST ASPARTATE AMINOTRANSFERASE 47.0 IU/L (10-42); BUN - BLOOD UREA NITROGEN 30.0 mg/dL (6-20); CARBON DIOXIDE - CO2 22.0 mmol/L (21-32); CREATININE 1.4 mg/dL (0.6-1.3); GFR - MDRD 36.0 (>89)
--- OUTSIDE RECORDS SUMMARY | 2025-03-12 17:37 | EXTERNAL MEDICAL SUMMARY RPT | Continuity of Care Document ---
Author Organization [facility] Address [address] [place] [id number] Phone Problems date description facility 2025-02-23 15:46 [facility]roperitoneal hematoma [facility] 2025-02-23 15:46 Other specified disorders of ki dney and ureter [facility] 2025-02-23 15:56 [facility]peritoneal [facility]oma [facility] 2025-02-23 15:56 Other specified disorders of ki dney and ureter [facility] 2025-02-23 16:27 [facility]peritoneal [facility]oma [facility] 2025-02-23 16:27 Other specified disorders of ki dney and ureter [facility] 2025-02-23 17:17 [facility]roperitoneal hematoma [facility] 2025-02-23 17:17 Other specified disorders of ki dney and ureter [facility] 2025-02-23 18:26 [facility]roperitoneal [facility]oma [facility] 2025-02-23 18:26 Other specified disorders of ki dney and ureter [facility] 2025-02-25 06:57 Hypokalemia [facility] 2025-02-25 06:57 Essential (primary) hypertensio n [facility] 2025-02-25 06:57 [facility]roperitoneal hematoma [facility] 2025-02-25 06:57 Other specified disorders of ki dney and ureter [facility] 2025-02-25 06:57 Flank pain, [facility] 2025-02-25 06:57 Nausea [facility] 2025-02-25 06:58 [facility]roperitoneal hematoma [facility] 2025-02-25 06:58 Other specified disorders of ki dney and ureter [facility] 2025-02-25 08:17 Hypokalemia [facility] 2025-02-25 08:17 Essential (primary) hypertensio n [facility] 2025-02-25 08:17 [facility]roperitoneal [facility]oma [facility] 2025-02-25 08:17 Other specified disorders of ki dney and ureter [facility] 2025-02-25 08:17 Flank [facility], [facility]25[facility]25 [facility] 08:18 Retroperitoneal hematoma [facility] 2025-02-25 08:18 Other specified disorders of ki dney and ureter [facility] 2025-02-25 09:40 Hypokalemia [facility] 2025-02-25 09:40 Essential (primary) hypertensio n [facility] 2025-02-25 09:40 [facility]roperitoneal [facility]oma [facility] 2025-02-25 09:40 Other specified disorders of ki dney and ureter [facility] 2025-02-25 09:40 Flank pain, [facility] 2025-02-25 09:40 [facility]25 09:41 Essential (primary) hypertensio n [facility] 2025-02-25 09:41 Retroperitoneal hematoma [facility] 2025-02-25 09:41 Other specified disorders of ki dney and ureter [facility] 2025-02-25 09:41 Flank pain, left side [facility] 2025-02-25 09:41 [facility] 13:05 [facility]25-[facility]25 13:05 Essential (primary) hypertensio n [facility] 2025-02-25 13:05 Retroperitoneal hematoma [facility] 2025-02-25 13:05 Other specified disorders of ki dney and ureter [facility] 2025-02-25 13:05 Flank pain, left side [facility] 2025-02-25 13:05 [facility] 2025-02-25 13:06 Retroperitoneal hematoma [facility] 2025-02-25 13:06 Other specified disorders of ki dney and ureter [facility] 2025-02-25 13:13 Hypokalemia [facility] 2025-02-25 13:13 Essential (primary) hypertensio n [facility] 2025-02-25 13:13 Retroperitoneal hematoma [facility] 2025-02-25 13:13 Other specified disorders of ki dney and ureter [facility] 2025-02-25 13:13 Flank pain, left side [facility] 2025-02-25 13:13 [facility] 2025-02-25 14:19 [facility] 2025-02-25 14:19 Essential (primary) hypertensio n [facility] 2025-02-25 14:19 Retroperitoneal hematoma [facility] 2025-02-25 14:19 Other specified disorders of ki dney and ureter CHORD [facility] 2025-02-25 14:19 Flank pain, left side [facility] 2025-02-25 14:19 [facility]25-02-26 12:24 Benign lipomatous neoplasm of k idney [facility] 2025-02-26 12:24 Hypokalemia [facility] 2025-02-26 12:24 Essential (primary) hypertensio n [facility] 2025-02-26 12:24 Retroperitoneal hematoma [facility] 2025-02-26 12:24 Other specified disorders of ki dney and ureter [facility] 2025-02-26 12:24 Left lower quadrant pain [facility] 2025-02-26 12:24 Flank pain, left side [facility] 2025-02-26 12:24 [facility]26 12:26 Hypokalemia [facility] 2025-02-26 12:26 Essential (primary) hypertensio n [facility] 2025-02-26 12:26 Retroperitoneal hematoma [facility] 2025-02-26 12:26 Other specified disorders of ki dney and ureter [facility] 2025-02-26 12:26 Left lower quadrant pain [facility] 2025-02-26 12:26 Flank pain, left side [facility] 2025-02-26 12:26 Nausea alex [facility] 2025-02-26 12:27 Retroperitoneal hematoma id[facility] edvin [facility] 2025-02-26 12:27 Other specified disorders of ki dney and ureter alex [facility] 2025-02-26 14:29 Hypokalemia alex [facility] 2025-02-26 14:29 Essential (primary) hypertensio n alex [facility] 2025-02-26 14:29 Retroperitoneal hematoma [facility] edvin [facility] 2025-02-26 14:29 Other specified disorders of ki dney and ureter [facility] 2025-02-26 14:29 Left lower quadrant pain idbe edvin [facility] 2025-02-26 14:29 Flank pain, left side [facility] 2025-02-26 14:29 Nausea alex [facility] 2025-03-01 08:07 Left lower quadrant pain oumarbe edvin [facility] 2025-03-01 08:10 Left lower quadrant pain idrenetta pardo [facility] 2025-03-05 13:49 [facility] 2025-03-05 13:49 Essential (primary) hypertensio n alex [facility] 2025-03-05 13:49 Retroperitoneal hematoma idrenetta pardo [facility] 2025-03-05 13:49 Other specified disorders of ki dney and ureter alex [facility] 2025-03-05 13:49 Left lower quadrant pain oumarbe edvin [facility] 2025-03-05 13:49 Flank pain, left side [facility] 2025-03-05 13:49 [facility] 2025-03-08 09:20 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 2025-03-11 10:12 Retroperitoneal hematoma myrna pardo [facility] 2025-03-11 14:38 Benign lipomatous neoplasm of k idney [facility] 2025-03-11 14:38 [facility] 2025-03-11 14:38 Right upper quadrant pain [facility] 2025-03-11 15:29 [facility] 2025-03-11 15:29 Essential (primary) hypertensio n [facility] 2025-03-11 15:29 Retroperitoneal hematoma [facility] 2025-03-11 15:29 Other specified disorders of ki dney [facility] ureter [facility] 2025-03-11 15:29 Left lower quadrant pain [facility] 2025-03-11 15:29 Flank pain, left side [facility] 2025-03-11 15:29 [facility] 2025-03-12 09:38 Mixed hyperlipidemia [facility] 2025-03-12 09:38 Right upper quadrant pain [facility] 2025-03-12 16:48 Retroperitoneal hematoma [facility] Results/Labs test date facility value unit notes Result panel 1 NUCLEATED RED BLOOD CELLS AUTO 2025-02-23 13:30 [facility] 0.0 /100wbc (missing) BASOPHILS # (AUTO) 2025-02-23 13:30 [facility] 0.0 10 3/ul (missing) NRBC ABSOLUTE COUNT (AUTO) 2025-02-23 13:30 [facility] 0.00 x10 3/ul (missing) EOSINOPHILS # (AUTO) 2025-02-23 13:30 [facility] 0.1 10 3/ul (missing) MONOCYTES # (AUTO) 2025-02-23 13:30 [facility] 0.6 10 3/ul (missing) BILIRUBIN,TOTAL 2025-02-23 13:30 [facility] 0.6 mg/dl As of October 2022 testing method has changed, this may include reference ranges. CREATININE 2025-02-23 13:30 [facility] 0.8 mg/dl As of October 2022 testing method has changed, this may include reference ranges. LYMPHOCYTES # (AUTO) 2025-02-23 13:30 [facility] 1.4 10 3/ul (missing) ALBUMIN/GLOBULIN RATIO 2025-02-23 13:30 [facility] 1.8 (missing) (missing) MEAN PLATELET VOLUME 2025-02-23 13:30 [facility] 10.4 fl (missing) CHLORIDE 2025-02-23 13:30 [facility] 104 mmol/l As of October 2022 testing method has changed, this may include reference ranges. WHITE BLOOD COUNT 2025-02-23 13:30 [facility] 11.0 x10 3/ul (missing) RED CELL DISTRIBUTION WIDTH 2025-02-23 13:30 [facility] 12.2 % (missing) GLUCOSE 2025-02-23 13:30 [facility] 129 mg/dl As of October 2022 testing method has changed, this may include reference ranges. HGB - HEMOGLOBIN 2025-02-23 13:30 [facility] 13.5 g/dl (missing) SODIUM 2025-02-23 13:30 [facility] 139 mmol/l (missing) BUN - BLOOD UREA NITROGEN 2025-02-23 13:30 [facility] 14 mg/dl As of October 2022 testing method has changed, this may include reference ranges. ALT ALANINE AMINOTRANSFERASE 2025-02-23 13:30 [facility] 16 iu/l As of October 2022 testing method has changed, this may include reference ranges. AST ASPARTATE AMINOTRANSFERASE 2025-02-23 13:30 [facility] 19 iu/l As of October 2022 testing method has changed, this may include reference ranges. MAGNESIUM 2025-02-23 13:30 [facility] 2.1 mg/dl As of October 2022 testing method has changed, this may include reference ranges. GLOBULIN 2025-02-23 13:30 [facility] 2.5 g/dl (missing) PLT - PLATELET COUNT 2025-02-23 13:30 [facility] 207 10 3/ul (missing) LIPASE 2025-02-23 13:30 [facility] 25 u/l As of October 2022 testing method has changed, this may include reference ranges. CARBON DIOXIDE - CO2 2025-02-23 13:30 [facility] 26 mmol/l As of October 2022 testing method has changed, this may include reference ranges. POTASSIUM 2025-02-23 13:30 [facility] 3.3 mmol/l As of October 2022 testing method has changed, this may include reference ranges. MEAN CORPUSCULAR HEMOGLOBIN 2025-02-23 13:30 [facility] 31.2 pg (missing) MEAN CORPUSCULAR HGB CONC 2025-02-23 13:30 [facility] 33.4 g/dl (missing) ALKALINE PHOSPHATASE 2025-02-23 13:30 [facility] 36 iu/l As of October 2022 testing method has changed, this may include reference ranges. RED BLOOD COUNT 2025-02-23 13:30 [facility] 4.33 10 6/ul (missing) ALBUMIN 2025-02-23 13:30 [facility] 4.4 g/dl As of October 2022 testing method has changed, this may include reference ranges. HCT - HEMATOCRIT 2025-02-23 13:30 [facility] 40.4 % (missing) TOTAL PROTEIN 2025-02-23 13:30 [facility] 6.9 g/dl As of October 2022 testing method has changed, this may include reference ranges. GFR - MDRD 2025-02-23 13:30 [facility] 70 (missing) The IDMS-traceable MDRD Study Equation [...] June 2011. NEUTROPHILS # (AUTO) 2025-02-23 13:30 [facility] 8.7 10 3/ul (missing) ANION GAP 2025-02-23 13:30 [facility] 9.0 (missing) (missing) CALCIUM 2025-02-23 13:30 [facility] 9.5 mg/dl As of October 2022 testing method has changed, this may include reference ranges. MEAN CORPUSCULAR VOLUME 2025-02-23 13:30 [facility] 93.3 fl (missing) Result panel 2 UROBILINOGEN,URINE 2025-02-23 15:34 [facility] 0.2 (NORMAL) e.u./dl (missing) SPECIFIC GRAVITY,URINE 2025-02-23 15:34 [facility] 1.010 (missing) (missing) PH,URINE 2025-02-23 15:34 [facility] 7.0 ph (missing) CLARITY,URINE 2025-02-23 15:34 [facility] CLEAR (missing) (missing) LEUKOCYTE ESTERASE, URINE 2025-02-23 15:34 [facility] NEGATIVE (missing) (missing) NITRITE,URINE 2025-02-23 15:34 [facility] NEGATIVE (missing) (missing) OCCULT BLOOD,URINE 2025-02-23 15:34 [facility] NEGATIVE (missing) (missing) BILIRUBIN,URINE 2025-02-23 15:34 [facility] NEGATIVE (missing) Bilirubin can be influenced by color interference. Please correlate positive results with clinical presentation GLUCOSE, URINE (UA) 2025-02-23 15:34 [facility] NEGATIVE mg/dl (missing) KETONES,URINE (UA) 2025-02-23 15:34 [facility] NEGATIVE mg/dl (missing) PROTEIN,URINE 2025-02-23 15:34 [facility] NEGATIVE mg/dl (missing) UR CULTURE IF IND 2025-02-23 15:34 [facility] NOT INDICATED (missing) (missing) URINE MICROSCOPIC INDICATED? 2025-02-23 15:34 [facility] NOT INDICATED (missing) (missing) COLOR,URINE 2025-02-23 15:34 [facility] YELLOW (missing) URINE RANDOM Result panel 3 NUCLEATED RED BLOOD CELLS AUTO 2025-02-23 20:56 [facility] 0.0 /100wbc (missing) BASOPHILS # (AUTO) 2025-02-23 20:56 [facility] 0.0 10 3/ul (missing) EOSINOPHILS # (AUTO) 2025-02-23 20:56 [facility] 0.0 10 3/ul (missing) NRBC ABSOLUTE COUNT (AUTO) 2025-02-23 20:56 [facility] 0 .00 x10 3/ul (missing) MONOCYTES # (AUTO) 2025-02-23 20:56 [facility] 0.7 10 3/ul (missing) LYMPHOCYTES # (AUTO) 2025-02-23 20:56 [facility] 1.2 10 3/ul (missing) NEUTROPHILS # (AUTO) 2025-02-23 20:56 [facility] 10.2 10 3/ul (missing) MEAN PLATELET VOLUME 2025-02-23 20:56 [facility] 10.6 fl (missing) HGB - HEMOGLOBIN 2025-02-23 20:56 [facility] 11.3 g /dl (missing) WHITE BLOOD COUNT 2025-02-23 20:56 [facility] 12.2 x10 3/ul (missing) RED CELL DISTRIBUTION WIDTH 2025-02-23 20:56 [facility] 12.3 % (missing) PLT - PLATELET COUNT 2025-02-23 20:56 [facility] 197 10 3/ul (missing) RED BLOOD COUNT 2025-02-23 20:56 [facility] 3.67 10 6/ul (missing) MEAN CORPUSCULAR HEMOGLOBIN 2025-02-23 20:56 [facility] 30.8 pg (missing) MEAN CORPUSCULAR HGB CONC 2025-02-23 20:56 [facility] 32 .6 g/dl (missing) HCT - HEMATOCRIT 2025-02-23 20:56 [facility] 34.7 % (missing) MEAN CORPUSCULAR VOLUME 2025-02-23 20:56 [facility] 94.6 fl (missing) Result panel 4 CREATININE 2025-02-24 04:34 [facility] 0.9 mg/dl As of October 2022 testing method has changed, this may include reference ranges. CHLORIDE 2025-02-24 04:34 [facility] 106 mmol/l As of October 2022 testing method has changed, this may include reference ranges. GLUCOSE 2025-02-24 04:34 [facility] 136 mg/dl As of October 2022 testing method has changed, this may include reference ranges. SODIUM 2025-02-24 04:34 [facility] 138 mmol/l (missing) BUN - BLOOD UREA NITROGEN 2025-02-24 04:34 [facility] 15 mg/dl As of Oct testing method has changed, this may include reference ranges. CARBON DIOXIDE - CO2 2025-02-24 04:34 [facility] 27 mmol/l As of Oct testing method has changed, this may include reference ranges. POTASSIUM 2025-02-24 04:34 [facility] 3.9 mmol/l As of October 2022 testing method has changed, this may include reference ranges. ANION GAP 2025-02-24 04:34 [facility] 5.0 (missing ) (missing) GFR - MDRD 2025-02-24 04:34 [facility] 61 (viviana pearson) The IDMS-traceable MDRD Study Equation has been [...] caring for patients older than 70. References: http://www.nkdep.nih .gov/lab-evaluation/ gfr/creatinine-stand ardization, last updated June 2011. CALCIUM 2025-02-24 04:34 [facility] 8.3 mg/dl As of October 2022 testing method has changed, this may include reference ranges. Result panel 5 NUCLEATED RED BLOOD CELLS AUTO 2025-02-24 09:01 [facility] 0.0 /100wbc (missing) BASOPHILS # (AUTO) 2025-02-24 09:01 [facility] 0.0 10 3/ul (missing) EOSINOPHILS # (AUTO) 2025-02-24 09:01 [facility] 0.0 10 3/ul (missing) NRBC ABSOLUTE COUNT (AUTO) 2025-02-24 09:01 [facility] 0 .00 x10 3/ul (missing) MONOCYTES # (AUTO) 2025-02-24 09:01 [facility] 0.9 10 3/ul (missing) MEAN PLATELET VOLUME 2025-02-24 09:01 [facility] 10.5 fl (missing) WHITE BLOOD COUNT 2025-02-24 09:01 [facility] 10.8 x10 3/ul (missing) RED CELL DISTRIBUTION WIDTH 2025-02-24 09:01 [facility] 12.5 % (missing) PLT - PLATELET COUNT 2025-02-24 09:01 [facility] 195 10 3/ul (missing) LYMPHOCYTES # (AUTO) 2025-02-24 09:01 [facility] 2.2 10 3/ul (missing) RED BLOOD COUNT 2025-02-24 09:01 [facility] 3.16 10 6/ul (missing) HCT - HEMATOCRIT 2025-02-24 09:01 [facility] 30.1 % (missing) MEAN CORPUSCULAR HEMOGLOBIN 2025-02-24 09:01 [facility] 30.4 pg (missing) MEAN CORPUSCULAR HGB CONC 2025-02-24 09:01 [facility] 31 .9 g/dl (missing) NEUTROPHILS # (AUTO) 2025-02-24 09:01 [facility] 7.6 10 3/ul (missing) HGB - HEMOGLOBIN 2025-02-24 09:01 [facility] 9.6 g /dl (missing) MEAN CORPUSCULAR VOLUME 2025-02-24 09:01 [facility] 95.3 fl (missing) Result panel 6 NUCLEATED RED BLOOD CELLS AUTO 2025-02-24 21:03 [facility] 0.0 /100wbc (missing) BASOPHILS # (AUTO) 2025-02-24 21:03 [facility] 0.0 10 3/ul (missing) NRBC ABSOLUTE COUNT (AUTO) 2025-02-24 21:03 [facility] 0 .00 x10 3/ul (missing) EOSINOPHILS # (AUTO) 2025-02-24 21:03 [facility] 0.1 10 3/ul (missing) MONOCYTES # (AUTO) 2025-02-24 21:03 [facility] 0.8 10 3/ul (missing) WHITE BLOOD COUNT 2025-02-24 21:03 [facility] 10.5 x10 3/ul (missing) MEAN PLATELET VOLUME 2025-02-24 21:03 [facility] 10.8 fl (missing) RED CELL DISTRIBUTION WIDTH 2025-02-24 21:03 [facility] 12.6 % (missing) PLT - PLATELET COUNT 2025-02-24 21:03 [facility] 192 10 3/ul (missing) LYMPHOCYTES # (AUTO) 2025-02-24 21:03 [facility] 3.0 10 3/ul (missing) RED BLOOD COUNT 2025-02-24 21:03 [facility] 3.16 10 6/ul (missing) HCT - HEMATOCRIT 2025-02-24 21:03 [facility] 30.6 % (missing) MEAN CORPUSCULAR HEMOGLOBIN 2025-02-24 21:03 [facility] 30.7 pg (missing) MEAN CORPUSCULAR HGB CONC 2025-02-24 21:03 [facility] 31 .7 g/dl (missing) NEUTROPHILS # (AUTO) 2025-02-24 21:03 [facility] 6.5 10 3/ul (missing) HGB - HEMOGLOBIN 2025-02-24 21:03 [facility] 9.7 g /dl (missing) MEAN CORPUSCULAR VOLUME 2025-02-24 21:03 [facility] 96.8 fl (missing) Result panel 7 CREATININE 2025-02-25 04:30 [facility] 0.8 mg/dl As of October 2022 testing method has changed, this may include reference ranges. CHLORIDE 2025-02-25 04:30 [facility] 110 mmol/l As of October 2022 testing method has changed, this may include reference ranges. GLUCOSE 2025-02-25 04:30 [facility] 120 mg/dl As of October 2022 testing method has changed, this may include reference ranges. BUN - BLOOD UREA NITROGEN 2025-02-25 04:30 [facility] 13 mg/dl As of Oct testing method has changed, this may include reference ranges. SODIUM 2025-02-25 04:30 [facility] 140 mmol/l (missing) CARBON DIOXIDE - CO2 2025-02-25 04:30 [facility] 26 mmol/l As of Oct testing method has changed, this may include reference ranges. POTASSIUM 2025-02-25 04:30 [facility] 3.5 mmol/l As of October 2022 testing method has changed, this may include reference ranges. ANION GAP 2025-02-25 04:30 [facility] 4.0 (missing ) (missing) GFR - MDRD 2025-02-25 04:30 [facility] 70 (viviana pearson) The IDMS-traceable MDRD Study Equation has been [...] caring for patients older than 70. References: http://www.nkdep.nih .gov/lab-evaluation/ gfr/creatinine-stand ardization, last updated June 2011. CALCIUM 2025-02-25 04:30 [facility] 8.0 mg/dl As of October 2022 testing method has changed, this may include reference ranges. Result panel 8 NUCLEATED RED BLOOD CELLS AUTO 2025-02-25 09:13 [facility] 0.0 /100wbc (missing) BASOPHILS # (AUTO) 2025-02-25 09:13 [facility] 0.0 10 3/ul (missing) NRBC ABSOLUTE COUNT (AUTO) 2025-02-25 09:13 [facility] 0 .00 x10 3/ul (missing) EOSINOPHILS # (AUTO) 2025-02-25 09:13 [facility] 0.1 10 3/ul (missing) MONOCYTES # (AUTO) 2025-02-25 09:13 [facility] 0.8 10 3/ul (missing) LYMPHOCYTES # (AUTO) 2025-02-25 09:13 [facility] 1.4 10 3/ul (missing) MEAN PLATELET VOLUME 2025-02-25 09:13 [facility] 10.2 fl (missing) WHITE BLOOD COUNT 2025-02-25 09:13 [facility] 10.7 x10 3/ul (missing) RED CELL DISTRIBUTION WIDTH 2025-02-25 09:13 [facility] 12.8 % (missing) PLT - PLATELET COUNT 2025-02-25 09:13 [facility] 150 10 3/ul (missing) RED BLOOD COUNT 2025-02-25 09:13 [facility] 2.76 10 6/ul (missing) HCT - HEMATOCRIT 2025-02-25 09:13 [facility] 26.8 % (missing) MEAN CORPUSCULAR HEMOGLOBIN 2025-02-25 09:13 [facility] 30.8 pg (missing) MEAN CORPUSCULAR HGB CONC 2025-02-25 09:13 [facility] 31 .7 g/dl (missing) NEUTROPHILS # (AUTO) 2025-02-25 09:13 [facility] 8.3 10 3/ul (missing) HGB - HEMOGLOBIN 2025-02-25 09:13 [facility] 8.5 g /dl (missing) MEAN CORPUSCULAR VOLUME 2025-02-25 09:13 [facility] 97.1 fl (missing) Result panel 9 NUCLEATED RED BLOOD CELLS AUTO 2025-03-08 09:32 [facility] 0.0 /100wbc (missing) BASOPHILS # (AUTO) 2025-03-08 09:32 [facility] 0.0 10 3/ul (missing) EOSINOPHILS # (AUTO) 2025-03-08 09:32 [facility] 0.0 10 3/ul (missing) NRBC ABSOLUTE COUNT (AUTO) 2025-03-08 09:32 [facility] 0.00 x10 3/ul (missing) MONOCYTES # (AUTO) 2025-03-08 09:32 [facility] 0.9 10 3/ul (missing) BILIRUBIN,TOTAL 2025-03-08 09:32 [facility] 1.1 mg/dl As of October 2022 testing method has changed, this may include reference ranges. CREATININE 2025-03-08 09:32 [facility] 1.1 mg/dl As of October 2022 testing method has changed, this may include reference ranges. LYMPHOCYTES # (AUTO) 2025-03-08 09:32 [facility] 1.2 10 3/ul (missing) ALBUMIN/GLOBULIN RATIO 2025-03-08 09:32 [facility] 1.5 (missing) (missing) LDL/HDL RATIO 2025-03-08 09:32 [facility] 1.6 (missing) (missing) HGB - HEMOGLOBIN 2025-03-08 09:32 [facility] 10.3 g/dl (missing) CHLORIDE 2025-03-08 09:32 [facility] 100 mmol/l As of October 2022 testing method has changed, this may include reference ranges. WHITE BLOOD COUNT 2025-03-08 09:32 [facility] 11.0 x10 3/ul (missing) CHOLESTEROL 2025-03-08 09:32 [facility] 118 mg/dl Total Cholesterol Risk Classification Cholesterol Level Risk Classification <200 mg/dL Desirable 200-239 mg/dL Borderline High >240 mg/dL High As of October 2022 testing method has changed, this may include reference ranges. TRIGLYCERIDES 2025-03-08 09:32 [facility] 123 mg/dl Unknown Triglyceride Risk Classification <150 mg/dL Normal 150-199 mg/dL Borderline High 200-499 mg/dL High >500 mg/dL Very High As of October 2022 testing method has changed, this may include reference ranges. RED CELL DISTRIBUTION WIDTH 2025-03-08 09:32 [facility] 13.2 % (missing) SODIUM 2025-03-08 09:32 [facility] 133 mmol/l (missing) GLUCOSE 2025-03-08 09:32 [facility] 141 mg/dl As of October 2022 testing method has changed, this may include reference ranges. BUN - BLOOD UREA NITROGEN 2025-03-08 09:32 [facility] 15 mg/dl As of October 2022 testing method has changed, this may include reference ranges. GLOBULIN 2025-03-08 09:32 [facility] 2.7 g/dl (missing) ALT ALANINE AMINOTRANSFERASE 2025-03-08 09:32 [facility] 23 iu/l As of October 2022 testing method has changed, this may include reference ranges. VLDL CHOLESTEROL 2025-03-08 09:32 [facility] 25 mg/dl (missing) CARBON DIOXIDE - CO2 2025-03-08 09:32 [facility] 25 mmol/l As of October 2022 testing method has changed, this may include reference ranges. AST ASPARTATE AMINOTRANSFERASE 2025-03-08:32 [facility] 29 iu/l As of October 2022 testing method has changed, this may include reference ranges. CHOL/HDL RATIO 2025-03-08 09:32 [facility] 3.3 (missing) NATIONAL CHOLESTEROL GUIDELINE [facility] ([facility]) guidelines for classificaton, testing and management of cholesterol levels in adults over 20 years of age. This new classification creates three categories of risk for coronary heart disease, regardless of age or sex, according to total amd LDL cholesterols levels: Based on total cholesterol level Desirable <200 mg/dl Borderline-high 200-239 mg/dl High >=240 mg/dl Based on cholesterol ratio CHD RISK CHOL/HDL RATIO --- MALE FEMALE 0.5 x Average 3.4 3.3 1.0 x Average 5.0 4.4 2.0 x Average 9.6 7.1 3.0 x Average 13.5 11.0 POTASSIUM 2025-03-08:32 [facility] 3.3 mmol/l As of October 2022 testing method has changed, this may include reference ranges. RED BLOOD COUNT 2025-03-08: [facility] 3.38 10 6/ul (missing) MEAN CORPUSCULAR HEMOGLOBIN 2025-03-08:32 [facility] 30.5 pg (missing) HCT - HEMATOCRIT 2025-03-08:32 [facility] 32.0 % (missing) MEAN CORPUSCULAR HGB CONC 2025-03-08:32 [facility] 32.2 g/dl (missing) PLT - PLATELET COUNT 2025-03-08:32 [facility] 343 10 3/ul (missing) HDL CHOLESTEROL 2025-03-08:32 [facility] 36 mg/dl Coronary Heart Disease Risk Classification HDL Level Risk factor < 40 mg/dL major risk > 60 mg/dL negative risk As of October 2022 testing method has changed, this may include reference ranges. ALBUMIN 2025-03-08 09:32 [facility] 4.0 g/dl As of October 2022 testing method has changed, this may include reference ranges. GFR - MDRD 2025-03-08 09:32 [facility] 48 (missing) The IDMS-traceable MDRD Study Equation has [...] caring for patients older than 70. References: http://www.nkdep.ni h.gov/lab-evaluatio n/gfr/creatinine-st and ardization, last updated June 2011. LDL CHOLESTEROL,CALCULATED 2025-03-08 09:32 [facility] 57 mg/dl LDLD REFERENCE RANGE AND CARDIOVASCULAR RISK: <130 mg/dL Desirable 130-159 mg/dL Borderline High Risk >160 mg/dL High Risk TOTAL PROTEIN 2025-03-08 09:32 [facility] 6.7 g/dl As of October 2022 testing method has changed, this may include reference ranges. ANION GAP 2025-03-08 09:32 [facility] 8.0 (missing) (missing) NEUTROPHILS # (AUTO) 2025-03-08 09:32 [facility] 8.8 10 3/ul (missing) ALKALINE PHOSPHATASE 2025-03-08 09:32 [facility] 81 iu/l As of October 2022 testing method has changed, this may include reference ranges. MEAN PLATELET VOLUME 2025-03-08 09:32 [facility] 9.7 fl (missing) CALCIUM 2025-03-08 09:32 [facility] 9.7 mg/dl As of October 2022 testing method has changed, this may include reference ranges. MEAN CORPUSCULAR VOLUME 2025-03-08 09:32 [facility] 94.7 fl (missing) Social History date description facility
[2025-03-12] MEDS: PANTOPRAZOLE 40 MG VIAL IVP STA (17:41)
[2025-03-12 18:11] LABS: PLATELET ESTIMATE, MANUAL NORMAL (130-450,000) (NORMAL); PLATELET MORPHOLOGY 1+ LARGE PLATELETS (NORMAL); RBC MORPHOLOGY (MULTIPLE) NORMAL APPEARANCE (NORMAL)
--- NOTE | 2025-03-12 19:32 | CT Report ---
PROCEDURE: CT Abdomen/Pelvis W INDICATIONS: mid abdominal pain, nausea and vomiting CONTRAST: [id number] 100ML TECHNIQUE: After the administration of intravenous contrast, a CT scan of the abdomen and pelvis was performed. Images were recorded and evaluated at appropriate window settings. Reformats: coronal and sagittal. For radiation dose reduction, the following was used: automated exposure control, adjustment of mA and/or kV according to patient size. COMPARISON: CT abdomen pelvis on 02/23/2025, 02/25/2025 FINDINGS: Image quality: Diagnostic. Lower chest: Unremarkable. Liver: Hepatic steatosis. Gallbladder: No radiopaque stones or wall thickening. Biliary tree: No intrahepatic or extrahepatic dilation, accounting for age. Spleen: No splenomegaly. Pancreas: No pancreatic ductal dilation. Adrenals: No adrenal nodule. Kidneys and ureters: Similar mild to moderate left intrarenal hydronephrosis. Interval decrease in size of the left perinephric hematoma, measuring 8.2 x 4.3 cm (), previously 9.4 x 4 cm when measured similarly on 02/25/2025. The underlying masslike lesion is obscured by the hemorrhage. Stomach, bowel and peritoneum: New mural thickening of the ileum and distal jejunum with hyperenhancing mucosa and mesenteric adjacent fat stranding. Small volume ascites in the dependent pelvis and inferior right paracolic gutter. Normal appendix. Diverticulosis without evidence of diverticulitis. Lymph nodes: No central or retroperitoneal adenopathy. Vessels: No infrarenal aortic aneurysm. Patent portal vein. The SMV and portal vein are patent. The celiac trunk, SMA, and CARLA are patent. PELVIS Reproductive organs: Unremarkable. Bladder: No abnormal wall thickening. Pelvic lymph nodes: No pelvic adenopathy by size criteria. Bones: No aggressive osseous abnormality. Other: No significant ventral or inguinal hernia. IMPRESSION: 1. Mural hyperenhancement and mural thickening of the small bowel predominantly involves the jejunum and ileum, this is nonspecific but can be seen with angioedema of the small bowel secondary to KONSTANTIN inhibitor, recommend correlation with serum lactate level and white blood cell count. This is new when compared to the prior exam on 02/25/2025 2. Interval decrease in size of the left perinephric hematoma. The underlying mass is obscured by the hemorrhage. 3. Similar mild to moderate left hydronephrosis. Findings were discussed with provider at time of dictation. Reviewed by: Simone Carlos MD on 03/12/2025 6:29 PM [facility] Approved by: Simone Carlos MD on 03/12/2025 6:29 PM [facility] Station ID: [id number]
--- NOTE | 2025-03-12 20:50 | HISTORY & PHYSICAL EXAMINATION ---
Chief Complaint Chief Complaint Chief Complaint: N/V/D History of Present Illness Admitted From Admitted From:: Home with History Obtained From History obtained from: Patient interview History of Present Illness HPI Comment/Other: 79-year-old female with right breast cancer on aromatase inhibitor, who was recently admitted here for retroperitoneal bleed secondary to angio myolipoma of the left kidney presents with nausea, vomiting, diarrhea. She reports this had sudden onset around noon today, shortly after her PCP appointment. She denies fever, chills, chest pain, dyspnea. Reports decreased urine output, but also reports poor oral intake over the past week. She reports intermittent abdominal pain associated with her nausea and vomiting. In the ER, lab work was significant for elevated WBC at 13.3, potassium 3.2, creatinine 1.4, up from baseline around 0.8-1.1. Some LFT elevations with AST 47, ALT 84, alk phos 206. CT of the abdomen and pelvis was performed which, while it showed similar appearing left hydronephrosis, and interval decrease in size of left perinephric hematoma, it was concerning for mural hyperenhancement and mural thickening of the small bowel predominantly involving the jejunum and ileum concerning for KONSTANTIN inhibitor mediated angioedema of the small bowel. General surgery was contacted by ER provider, who confirms impression of CT read, and hospitalist was contacted for observation for acute kidney injury, small bowel angioedema, Dehydration Meds/Allgy Home Medications Ambulatory Orders Medication Instructions Recorded Confirmed lisinopril 40 mg tablet 40 mg PO DAILY 05/09/1312/27 triamterene 37.5 1 ea PO DAILY 05/09/1303/12 mg-hydrochlorothiazide 25 mg tablet zolpidem 5 mg tablet 5 mg PO QPM PRN Insomnia 03/12/25 aspirin 81 mg chewable tablet 81 mg PO DAILY 04/10/20 03/12/25 multivitamin with minerals-folic 1 tab PO DAILY 03/12/25 acid 0.4 mg tablet exemestane 25 mg tablet 25 mg PO QDAY #90 tabs 12/0603/12/25 rosuvastatin 20 mg tablet 20 mg PO QPM 02/23/25 cholecalciferol (vitamin D3) 50 50 mcg PO DAILY 03/12/25 mcg (2,000 unit) tablet fenofibrate micronized 134 mg 134 mg PO QPM 02/24/25 1 05/13/24 capsule gabapentin 300 mg capsule 300 mg PO QPM 02/24/2503/12 hydromorphone 2 mg tablet 1 mg (1/2 x 2 mg) PO Q6HR CT N 02/25/25 03/12/25 breakthrough pain #30 tabs tamsulosin 0.4 mg capsule 0.4 mg PO HS #30 caps 03/12/25 acetaminophen 500 mg tablet 1,000 mg PO TID PRN fever or pain 03/12/25 03/12/25 (Tylenol Extra Strength) xylitol 500 mg mucosal adhesive 500 mg mucous membrane PRN PRN dry 03/12/25 03/12/25 tablet (XyliMelts) mouth Allergies Allergies Allergy/AdvReac Type Severity Reaction Status Date / Time codeine AdvReac Emesis Verified 03/12/25 16:48 PFSH Active Problems All Active Problems (Updated 03/12/25 @ 20:56 by Harry Palma DNP) Poor appetite (Acute) Elevated LFTs (Acute) Angioedema (Acute) ZOË (acute kidney injury) (Acute) Diarrhea (Acute) Abdominal pain (Acute) Vomiting (Acute) Left kidney mass (Acute) Acute left flank pain (Acute) Aromatase inhibitor use (Acute) Breast cancer, right (Acute) Angiomyolipoma of left kidney (Acute) Medical History Medical History (Updated 03/12/25 @ 20:56 by Harry Palma DNP) Sicca syndrome, Sjogren's Chest pain Breast CA Osteoporosis Hematuria 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 MMR proteins: Loss of expression MLH1 and PMS2 MLH1 1 promoter hyper methylation: Not detected. S/p right axillary lymph node dissection on 12/11/2019. She declined right axilla radiation. Adjuvant Pembrolizumab C1D1 on 11/27/2019 C16D1 on 11/26/2020 Toxicity: Arthralgias and myalgias. Low back pain Back pain since May 2024. MRI L spine (09/12/2024): 1. Remote wedge compression fracture deformity superior endplate at L1 with 20% loss of height with mild wedge deformities at L2 and L3 without significant loss of height. 2. Moderate levoscoliosis with degenerative spondylolisthesis. 3. Multilevel degenerative disc disease results in varying degrees of foraminal stenosis with mild central canal stenosis at the L1-L2 level. Uterine fibroid US Pelvic w/Transvaginal ): Scattered areas of heterogeneous echogenicity within the uterus largest measuring 1 cm. These are most consistent with fibroids. Hyperlipidemia Hypertension Surgical History Surgical History History of lymph node dissection of axilla History of colonoscopy Family History Family History (Updated 02/23/25 @ 18:19 by Makenzie Mckeon MD) Father Alzheimers disease Mother No problems noted. Sister Diabetes Sister Breast cancer Brother Well adult exam Brother Well adult exam Daughter Brain tumor Son Well adult exam Social History Social History Smoking Status: Unknown if ever smoked Second hand tobacco smoke exposure: No Do you dip or chew tobacco?: No Do you vape?: No Living arrangement: At home Marital Status: Living Condition: With spouse/s.o. 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 Service: No POLST Patient has POLST: No POLST on file?: No POLST CPR Status: Do Not Attempt Resuscitation (DNAR) / Allow Natural Review of Systems Status of ROS: 10 or more systems reviewed and unremarkable except as noted in history and below Exam Exam Vital Signs: Vital Signs x48h Temp Pulse Resp BP Pulse Ox 03/12/25 19:52 63 14 125/87 95 03/12/25 17:21 58 L 18 127/64 97 03/12/25 16:48 97.0 F L 65 20 133/83 H 96 Constitutional Overweight elderly female, appears to be in some pain HENMT normocephalic and head/scalp atraumatic Eyes PERRL Neck/C-Spine visual inspection normal Lymph no lymphadenopathy noted Chest inspection of chest normal Respiratory breath sounds equal bilaterally and normal respiratory effort Cardiovascular normal heart rate noted and regular rhythm noted Gastrointestinal abdomen normal to inspection and abdomen soft to palpation Tenderness to palpation. Bowel tones present Extremities normal to inspection Neurology GCS 15 Psychiatry oriented x3 Skin skin color normal Conclusion/Plan Problem List (1) ZOË (acute kidney injury): (2) Angioedema: (3) Elevated LFTs: Plan: Plan for all of the above Patient presented with nausea, vomiting, diarrhea. Initial imaging showed concern for angioedema of the small bowel related to KONSTANTIN inhibitor use. General surgery was contacted by ER provider, who recommended observation with under medicine, IV fluids, other supportive care. This angioedema, and the resultant N/V/D, is the cause of her acute kidney injury NS at 100 BMP in a.m. Consider plasma if condition worsens She should never take an KONSTANTIN inhibitor again Elevated LFTs likely secondary to dehydration, recheck LFTs in a.m. (4) Left kidney mass: Plan: Mass was not well-visualized due to hematoma on CT scan. Hematoma is stable in size, no acute intervention required. Already established with oncology (5) Poor appetite: Plan: Patient reports to me history of poor appetite for the past week unrelated to current ailment Consider appetite stimulant (6) Hypertension: Plan: BP 125/87 at this time Preliminary med rec shows lisinopril 40 mg daily. She cannot be on KONSTANTIN inhibitor anymore, so alternate blood pressure regimen should be explored Qualifiers: Hypertension type: primary hypertension Qualified Code(s): I10 - Essential (primary) hypertension Plan Place in observation Full code Her is her surrogate decision maker Lab Results 03/12/25 17:00 03/12/25 17:00
[2025-03-12 21:24] LABS: GLUCOSE, URINE (UA) NEGATIVE (NEGATIVE); KETONES,URINE (UA) 5 mg/dL (NEGATIVE); OCCULT BLOOD,URINE TRACE (NEGATIVE)
[2025-03-12 21:25] LABS: SQUAMOUS EPITHELIAL CELL,UR FEW Squamous (<= Few)
[2025-03-12] MEDS ORDERED: ACETAMINOPHEN 325 MG TABLET PO PRN (21:31)
[2025-03-12] MEDS ORDERED: ONDANSETRON 4 MG/2 ML VIAL IVP PRN (21:31)
[2025-03-12] MEDS ORDERED: ONDANSETRON ODT 4 MG TABLET TL PRN (21:31)
[2025-03-12] MEDS ORDERED: SODIUM CHLORIDE FLUSH 0.9% 10 ML SYRINGE IVP PRN (21:31)
[2025-03-12] MEDS: POTASSIUM CHLOR 10 MEQ/100 ML 10 MEQ/100 ML BAG IV SCH (21:40)
[2025-03-12] MEDS: SODIUM CHLORIDE 0.9% 1,000 ML IV SCH (22:21)
[2025-03-12] MEDS: ZOLPIDEM 5 MG TABLET PO PRN (23:30)
[2025-03-13] MEDS: SODIUM CHLORIDE FLUSH 0.9% 10 ML SYRINGE IVP SCH (01:05)
[2025-03-13 04:57] LABS: HCT - HEMATOCRIT 30.5 % (37.0-47.0); HGB - HEMOGLOBIN 9.7 g/dL (12.0-16.0); MEAN PLATELET VOLUME 10.3 fL (7.9-10.8); NRBC ABSOLUTE COUNT (AUTO) 0.00 x10^3/uL; NUCLEATED RED BLOOD CELLS AUTO 0.0 /100WBC; PLT - PLATELET COUNT 384 10^3/uL (130-450); RED CELL DISTRIBUTION WIDTH 13.3 % (12.0-15.0)
[2025-03-13] MEDS: PROCHLORPERAZINE 10 MG/2 ML VIAL IVP PRN (05:15)
[2025-03-13 05:20] LABS: ALT ALANINE AMINOTRANSFERASE 56.0 IU/L (10-60); AST ASPARTATE AMINOTRANSFERASE 28.0 IU/L (10-42); BUN - BLOOD UREA NITROGEN 25.0 mg/dL (6-20); CARBON DIOXIDE - CO2 24.0 mmol/L (21-32); CREATININE 1.2 mg/dL (0.6-1.3); GFR - MDRD 44.0 (>89)
--- NOTE | 2025-03-13 07:35 | CONSULTATION NOTE ---
Referring Provider Name of Referring Provider:: Harry Palma APRN Consult Date: 03/13/25 Chief Complaint Chief Complaint Chief Complaint: Abdominal pain, nausea, vomiting, diarrhea History of Present Illness History Obtained From History obtained from: Patient in Med/Surg History of Present Illness HPI Comment/Other: 79 yo F w/ PMH of R breast cancer (on exemestane), HTN, HLD and Sjogrens who was recently admitted for retroperitoneal bleed secondary to angio myolipoma of the left kidney and re-presented on 03/12 with nausea, vomiting, diarrhea and abdominal pain. She reports sudden onset around noon before arrival, shortly after her PCP appointment. She was having nausea, vomiting and a few episodes of diarrhea with intermittent abdominal pain. She denied fever, chills, chest pain, dyspnea. Reports decreased urine output, but also reports decreased oral intake over the past week. In the ER, lab work was significant for elevated WBC at 13.3, potassium 3.2, creatinine 1.4 (baseline 0.8-1.1). Some LFT elevations with AST 47, ALT 84, alk phos 206. CT of the abdomen and pelvis was performed demonstrating similar appearing left hydronephrosis, and interval decrease in size of left perinephric hematoma, as well as, mural hyperenhancement and mural thickening of the small bowel predominantly involving the jejunum and ileum concerning for KONSTANTIN inhibitor mediated angioedema of the small bowel. General surgery was contacted by ER provider and I reviewed the CT imaging and agree with the the radiologist impression of CT read. The small bowel appears globally thickened with hyperenhancement and edema but with patent vasculature and no concerns for ischemia. The hospitalist was contacted for observation for acute kidney injury, small bowel angioedema and dehydration. This AM she reports no further diarrhea or emesis since admission, she has been taking in sips of water and ice chips which she is tolerating well. She states she had too much water earlier this morning which made her nauseas but she held off and that resolved without intervention. She continues to have intermittent abdominal pain which likely corresponds with persistalsing of the small bowel. She states it is not severe and doesnt last too long before resolving. Otherwise denies any current chest pain, SOB, fevers or chills. 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 MMR proteins: Loss of expression MLH1 and PMS2 MLH1 1 promoter hyper methylation: Not detected. S/p right axillary lymph node dissection on 12/11/2019. She declined right axilla radiation. Adjuvant Pembrolizumab C1D1 on 11/27/2019 C16D1 on 11/26/2020 Toxicity: Arthralgias and myalgias. Low back pain Back pain since May 2024. MRI L spine (09/12/2024): 1. Remote wedge compression fracture deformity superior endplate at L1 with 20% loss of height with mild wedge deformities at L2 and L3 without significant loss of height. 2. Moderate levoscoliosis with degenerative spondylolisthesis. 3. Multilevel degenerative disc disease results in varying degrees of foraminal stenosis with mild central canal stenosis at the L1-L2 level. Uterine fibroid US Pelvic w/Transvaginal ): Scattered areas of heterogeneous echogenicity within the uterus largest measuring 1 cm. These are most consistent with fibroids. Hyperlipidemia Hypertension Surgical History Surgical History History of lymph node dissection of axilla History of colonoscopy Family History Family History (Updated 02/23/25 @ 18:19 by Makenzie Mckeon MD) Father Alzheimers disease Mother No problems noted. Sister Diabetes Sister Breast cancer Brother Well adult exam Brother Well adult exam Daughter Brain tumor Son Well adult exam Social History Social History Smoking Status: Unknown if ever smoked Second hand tobacco smoke exposure: No Do you dip or chew tobacco?: No Do you vape?: No Living arrangement: At home Marital Status: Living Condition: With spouse/s.o. 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 Service: No POLST Patient has POLST: No POLST on file?: No POLST CPR Status: Do Not Attempt Resuscitation (DNAR) / Allow Natural Meds/Allgy Home Medications Ambulatory Orders Medication Instructions Recorded Confirmed lisinopril 40 mg tablet 40 mg PO DAILY 05/09/1312/27 triamterene 37.5 1 ea PO DAILY 05/09/1303/12 mg-hydrochlorothiazide 25 mg tablet zolpidem 5 mg tablet 5 mg PO QPM PRN Insomnia 03/12/25 aspirin 81 mg chewable tablet 81 mg PO DAILY 04/10/20 03/12/25 multivitamin with minerals-folic 1 tab PO DAILY 03/12/25 acid 0.4 mg tablet exemestane 25 mg tablet 25 mg PO QDAY #90 tabs 12/0603/12/25 rosuvastatin 20 mg tablet 20 mg PO QPM 02/23/25 cholecalciferol (vitamin D3) 50 50 mcg PO DAILY 03/12/25 mcg (2,000 unit) tablet fenofibrate micronized 134 mg 134 mg PO QPM 02/24/25 1 05/13/24 capsule gabapentin 300 mg capsule 300 mg PO QPM 02/24/2503/12 hydromorphone 2 mg tablet 1 mg (1/2 x 2 mg) PO Q6HR LA N 02/25/25 03/12/25 breakthrough pain #30 tabs tamsulosin 0.4 mg capsule 0.4 mg PO HS #30 caps 03/12/25 acetaminophen 500 mg tablet 1,000 mg PO TID PRN fever or pain 03/12/25 03/12/25 (Tylenol Extra Strength) xylitol 500 mg mucosal adhesive 500 mg mucous membrane PRN PRN dry 03/12/25 03/12/25 tablet (XyliMelts) mouth Allergies Allergies Allergy/AdvReac Type Severity Reaction Status Date / Time codeine AdvReac Emesis Verified 03/12/25 16:48 Results Lab Results Lab results reviewed: Yes 03/13/25 04:26 03/13/25 04:26 Other Lab Results: Lab Results x24hrs 03/13/25 03/12/25 03/12/25 Range/Units 04:26 20:51 19:41 WBC 8.9 (4.8-10.8) x10^3/uL RBC 3.27 L (4.20-5.40) 10^6/uL Hgb 9.7 L (12.0-16.0) g/dL Hct 30.5 L (37.0-47.0) % MCV 93.3 (81.0-99.0) fL MCH 29.7 (27.0-31.0) pg MCHC 31.8 L (32.0-36.0) g/dL RDW 13.3 (12.0-15.0) % Plt Count 384 (130-450) 10^3/uL MPV 10.3 (7.9-10.8) fL Neut # (Auto) 6.9 H (1.5-6.6) 10^3/uL Lymph # (Auto) 1.3 L (1.5-3.5) 10^3/uL [place] # (Auto) 0.5 (0.0-1.0) 10^3/uL Eos # (Auto) 0.1 (0.0-0.7) 10^3/uL Baso # (Auto) 0.0 (0.0-0.1) 10^3/uL Absolute Nucleated RBC 0.00 x10^3/uL Band Neuts % (Manual) Abnorm Lymph % (Manual) Nucleated RBC % 0.0 /100WBC Neutrophils # (Manual) Lymphocytes # (Manual) Monocytes # (Manual) Eosinophils # (Manual) Basophils # (Manual) Differential Comment Manual Slide Review Platelet Estimate (NORMAL) Platelet Morphology (NORMAL) RBC Morph Micro Appear (NORMAL) Sodium 138 (135-145) mmol/L Potassium 4.2 (3.5-4.5) mmol/L Chloride 107 (101-111) mmol/L Carbon Dioxide 24 (21-32) mmol/L Anion Gap 7.0 (6-13) BUN 25 H (6-20) mg/dL Creatinine 1.2 (0.6-1.3) mg/dL Estimated GFR (MDRD) 44 L (>89) Glucose 135 H (74-104) mg/dL Lactic Acid 0.9 (0.5-2.2) mmol/L Calcium 8.5 (8.5-10.3) mg/dL Total Bilirubin 0.6 (0.2-1.0) mg/dL Direct Bilirubin 0.19 H (0.03-0.18) mg/dL AST 28 (10-42) IU/L ALT 56 (10-60) IU/L Alkaline Phosphatase 168 H (42-121) IU/L Total Protein 6.0 L (6.4-8.9) g/dL Albumin 3.3 (3.2-5.5) g/dL Globulin 2.7 (2.1-4.2) g/dL Albumin/Globulin Ratio (1.0-2.2) Lipase (11-82) U/L Urine Color YELLOW Urine Clarity HAZY (CLEAR) Urine pH 6.0 (5.0-7.5) PH Ur Specific [place] 1.010 (1.002-1.030) Urine Protein TRACE (NEGATIVE) mg/dL Urine Glucose (UA) NEGATIVE (NEGATIVE) mg/dL Urine Ketones 5 (NEGATIVE) mg/dL Urine Occult Blood TRACE (NEGATIVE) Urine Nitrite POSITIVE H (NEGATIVE) Urine Bilirubin NEGATIVE (NEGATIVE) Urine Urobilinogen 0.2 (NORMAL) (NORMAL) E.U./dL Ur Leukocyte Esterase MODERATE H (NEGATIVE) Urine RBC 11-25 H (0-5) /HPF Urine WBC >25 H (0-5) /HPF Ur Squamous Epith Cells FEW Squamous (<= Few) Urine Bacteria Many H (None Seen) /HPF Ur Microscopic Review INDICATED Urine Culture Comments INDICATED 03/12/25 Range/Units 17:00 WBC 13.3 H (4.8-10.8) x10^3/uL RBC 4.16 L (4.20-5.40) 10^6/uL Hgb 12.5 (12.0-16.0) g/dL Hct 37.4 (37.0-47.0) % MCV 89.9 (81.0-99.0) fL MCH 30.0 (27.0-31.0) pg MCHC 33.4 (32.0-36.0) g/dL RDW 13.2 (12.0-15.0) % Plt Count 443 (130-450) 10^3/uL MPV 10.0 (7.9-10.8) fL Neut # (Auto) 11.2 H (1.5-6.6) 10^3/uL Lymph # (Auto) 1.0 L (1.5-3.5) 10^3/uL [place] # (Auto) 0.6 (0.0-1.0) 10^3/uL Eos # (Auto) 0.5 (0.0-0.7) 10^3/uL Baso # (Auto) 0.0 (0.0-0.1) 10^3/uL Absolute Nucleated RBC 0.00 x10^3/uL Band Neuts % (Manual) Not Reportable Abnorm Lymph % (Manual) Not Reportable Nucleated RBC % 0.0 /100WBC Neutrophils # (Manual) Not Reportable Lymphocytes # (Manual) Not Reportable Monocytes # (Manual) Not Reportable Eosinophils # (Manual) Not Reportable Basophils # (Manual) Not Reportable Differential Comment MANUAL=AUTO DIFF Manual Slide Review Indicated Platelet Estimate NORMAL (130-450,000) (NORMAL) Platelet Morphology 1+ LARGE PLATELETS (NORMAL) RBC Morph Micro Appear NORMAL APPEARANCE (NORMAL) Sodium 135 (135-145) mmol/L Potassium 3.2 L (3.5-4.5) mmol/L Chloride 98 L (101-111) mmol/L Carbon Dioxide 22 (21-32) mmol/L Anion Gap 15.0 H (6-13) BUN 30 H (6-20) mg/dL Creatinine 1.4 H (0.6-1.3) mg/dL Estimated GFR (MDRD) 36 L (>89) Glucose 164 H (74-104) mg/dL Lactic Acid (0.5-2.2) mmol/L Calcium 10.8 H (8.5-10.3) mg/dL Total Bilirubin 1.0 (0.2-1.0) mg/dL Direct Bilirubin (0.03-0.18) mg/dL AST 47 H (10-42) IU/L ALT 84 H (10-60) IU/L Alkaline Phosphatase 206 H (42-121) IU/L Total Protein 7.3 (6.4-8.9) g/dL Albumin 4.0 (3.2-5.5) g/dL Globulin 3.3 (2.1-4.2) g/dL Albumin/Globulin Ratio 1.2 (1.0-2.2) Lipase 32 (11-82) U/L Urine Color Urine Clarity (CLEAR) Urine pH (5.0-7.5) PH Ur Specific [place] (1.002-1.030) Urine Protein (NEGATIVE) mg/dL Urine Glucose (UA) (NEGATIVE) mg/dL Urine Ketones (NEGATIVE) mg/dL Urine Occult Blood (NEGATIVE) Urine Nitrite (NEGATIVE) Urine Bilirubin (NEGATIVE) Urine Urobilinogen (NORMAL) E.U./dL Ur Leukocyte Esterase (NEGATIVE) Urine RBC (0-5) /HPF Urine WBC (0-5) /HPF Ur Squamous Epith Cells (<= Few) Urine Bacteria (None Seen) /HPF Ur Microscopic Review Urine Culture Comments Diagnostic Imaging Results Diagnostic Imaging Results: positive Final report reviewed and Read independently Review of Systems Status of ROS: 10 or more systems reviewed and unremarkable except as noted in history and below Exam Exam Vital Signs: Vital Signs x48h Temp Pulse Resp BP Pulse Ox 03/13/25 03:47 36.8 C 75 18 136/64 H 97 Constitutional normal general appearance and no apparent distress [facility] normocephalic and head/scalp atraumatic Eyes conjunctivae normal and no scleral icterus Neck/C-Spine visual inspection normal Respiratory normal respiratory effort Cardiovascular normal heart rate noted and regular rhythm noted Gastrointestinal abdomen normal to inspection, abdomen soft to palpation and nontender to palpation Extremities normal to inspection Neurology GCS 15 Psychiatry thought process normal, cooperative and affect normal Skin skin color normal Conclusion/Plan Problem List (1) ZOË (acute kidney injury): (2) Angioedema: Qualifiers: Encounter type: initial encounter Qualified Code(s): T78.3XXA - Angioneurotic edema, initial encounter (3) Elevated LFTs: (4) Left kidney mass: (5) Poor appetite: (6) Hypertension: Qualifiers: Hypertension type: primary hypertension Qualified Code(s): I10 - Essential (primary) hypertension Plan 79 yo F w/ PMH of R breast cancer (on exemestane), HTN, HLD and Sjogrens who was recently admitted for retroperitoneal bleed secondary to angio myolipoma of the left kidney and re-presented on 03/12 with nausea, vomiting, diarrhea and abdominal pain. CT was done which demonstrated mural hyperenhancement and mural thickening of the small bowel predominantly involves the jejunum and ileum, this is nonspecific but can be seen with angioedema of the small bowel secondary to KONSTANTIN inhibitor. This is new when compared to the prior exam on 02/25/2025. This morning she reports overall feeling better with intermittent abdominal pain still but no vomiting or diarrhea since admission. She has been taking sips and chips and got nausea when she took in too much water earlier but is feeling better now. Recommend we continue to monitor and treat like an SBO, she can continue with sips and chips and then as her intermittent pain (likely from peristalsing of the edematous bowel) improves and she starts passing flatus we can advance her diet and work on dispo planning. - Continue sips and chips - Await ROBF to ADAT - Pain and nausea control as needed - Encourage OOB/ambulation - Rest of care per primary - Discussed with Dr. Maldonado and the patient Lab Results Lab results reviewed: Yes 03/13/25 04:26 03/13/25 04:26 Diagnostic Imaging Results Diagnostic Imaging Results: positive Final report reviewed and Read independently
--- NOTE | 2025-03-13 08:37 | PROVIDER PROGRESS NOTE ---
Subjective Prog Note Date Prog Note Date: 03/13/25 Prog Note Time: 09:33 Subjective Pt reports feeling: Improved and No change Subjective: Pt reports minor abd pain this morning, localized to the suprapubic area and rated 2/10. Pt also reports ongoing nausea, rated 3/10 this morning, and relates that she had her last antiemetic dose early this morning. Pt apprised of the nature of her suspected angioedema complication from the ACEi medication, is amenable to medication change. Pt reports lessened diarrhea, and denies any melena or hemotochezia. ROS:Pt denies any CP, SOA, increased WOB, syncope or near syncope, dysuria, hematuria, hematochezia, melena, palpitations, fever, rigors, or myalgias. Current Medications Current Medications Current Medications: Current Medications Generic Name Dose Route Start Last Admin Trade Name Freq PRN Reason Stop Dose Admin Acetaminophen 650 mg 03/12/25 21:31 Acetaminophen 325 Mg Tablet PO Q4HR PRN Pain 1 to 4, or Fever Sodium Chloride 1,000 mls @ 100 mls/hr 03/12/25 21:00 03/13/25 07:18 Normal Saline 0.9% IV 100 mls/hr .Q10H ANN-MARIE Administration Ondansetron HCl 4 mg 03/12/25 21:31 Ondansetron Odt 4 Mg Tablet TL Q6HR PRN Nausea / Vomiting Ondansetron HCl 4 mg 03/12/25 21:31 Ondansetron 4 Mg/2 Ml Vial IVP Q6HR PRN Nausea / Vomiting Prochlorperazine Edisylate 10 mg 03/12/25 21:35 03/13/25 05:15 Prochlorperazine 10 Mg/2 Ml Vial IVP 10 mg Q6HR PRN Administration Nausea / Vomiting Sodium Chloride 10 ml 03/12/25 21:31 Sodium Chloride Flush 0.9% 10 Ml Syringe IVP PRN PRN NEEDED PER PROVIDER ORDERS Sodium Chloride 10 ml 03/13/25 01:00 03/13/25 01:05 Sodium Chloride Flush 0.9% 10 Ml Syringe IVP Not Given 0100,0900,1700 ANN-MARIE Zolpidem Tartrate 5 mg 03/12/25 21:59 03/12/25 23:30 Zolpidem 5 Mg Tablet PO 5 mg QPM PRN Administration Insomnia Objective Vital Signs/Intake & Output Reviewed Vital Signs: Yes Vital Signs: Vital Signs x48h Temp Pulse Resp BP Pulse Ox 03/13/25 03:47 36.8 C 75 18 136/64 H 97 Intake & Output: Intake & Output 03/10/25 03/11/25 03/12/25 03/13/25 23:59 23:59 23:59 23:59 Intake Total 3100 / 3100 1195 / 1195 Balance 3100 / 3100 1195 / 1195 Weight (kg) 79.5 kg Objective General Appearance: positive No acute distress and Alert Eyes Bilateral: positive Normal inspection and PERRL Neck: positive Nml inspection Respiratory: positive Chest non-tender, No respiratory distress and Breath sounds nml Cardiovascular: positive Regular rate & rhythm Abdomen: negative Non-tender (Mild suprapubic pain elicited on palpation, rated 2/10) Skin: positive Color nml, No rash, Warm and Dry Extremities: positive Non-tender and No pedal edema; negative Calf tenderness or Mayra's sign/cords Neurologic/Psychiatric: positive Oriented x3 Lab Results 03/13/25 04:26 03/13/25 04:26 Other Labs: Lab Results x24hrs 03/13/25 03/12/25 03/12/25 Range/Units 04:26 20:51 19:41 WBC 8.9 (4.8-10.8) x10^3/uL RBC 3.27 L (4.20-5.40) 10^6/uL Hgb 9.7 L (12.0-16.0) g/dL Hct 30.5 L (37.0-47.0) % MCV 93.3 (81.0-99.0) fL MCH 29.7 (27.0-31.0) pg MCHC 31.8 L (32.0-36.0) g/dL RDW 13.3 (12.0-15.0) % Plt Count 384 (130-450) 10^3/uL MPV 10.3 (7.9-10.8) fL Neut # (Auto) 6.9 H (1.5-6.6) 10^3/uL Lymph # (Auto) 1.3 L (1.5-3.5) 10^3/uL [place] # (Auto) 0.5 (0.0-1.0) 10^3/uL Eos # (Auto) 0.1 (0.0-0.7) 10^3/uL Baso # (Auto) 0.0 (0.0-0.1) 10^3/uL Absolute Nucleated RBC 0.00 x10^3/uL Band Neuts % (Manual) Abnorm Lymph % (Manual) Nucleated RBC % 0.0 /100WBC Neutrophils # (Manual) Lymphocytes # (Manual) Monocytes # (Manual) Eosinophils # (Manual) Basophils # (Manual) Differential Comment Manual Slide Review Platelet Estimate (NORMAL) Platelet Morphology (NORMAL) RBC Morph Micro Appear (NORMAL) Sodium 138 (135-145) mmol/L Potassium 4.2 (3.5-4.5) mmol/L Chloride 107 (101-111) mmol/L Carbon Dioxide 24 (21-32) mmol/L Anion Gap 7.0 (6-13) BUN 25 H (6-20) mg/dL Creatinine 1.2 (0.6-1.3) mg/dL Estimated GFR (MDRD) 44 L (>89) Glucose 135 H (74-104) mg/dL Lactic Acid 0.9 (0.5-2.2) mmol/L Calcium 8.5 (8.5-10.3) mg/dL Total Bilirubin 0.6 (0.2-1.0) mg/dL Direct Bilirubin 0.19 H (0.03-0.18) mg/dL AST 28 (10-42) IU/L ALT 56 (10-60) IU/L Alkaline Phosphatase 168 H (42-121) IU/L Total Protein 6.0 L (6.4-8.9) g/dL Albumin 3.3 (3.2-5.5) g/dL Globulin 2.7 (2.1-4.2) g/dL Albumin/Globulin Ratio (1.0-2.2) Lipase (11-82) U/L Urine Color YELLOW Urine Clarity HAZY (CLEAR) Urine pH 6.0 (5.0-7.5) PH Ur Specific [place] 1.010 (1.002-1.030) Urine Protein TRACE (NEGATIVE) mg/dL Urine Glucose (UA) NEGATIVE (NEGATIVE) mg/dL Urine Ketones 5 (NEGATIVE) mg/dL Urine Occult Blood TRACE (NEGATIVE) Urine Nitrite POSITIVE H (NEGATIVE) Urine Bilirubin NEGATIVE (NEGATIVE) Urine Urobilinogen 0.2 (NORMAL) (NORMAL) E.U./dL Ur Leukocyte Esterase MODERATE H (NEGATIVE) Urine RBC 11-25 H (0-5) /HPF Urine WBC >25 H (0-5) /HPF Ur Squamous Epith Cells FEW Squamous (<= Few) Urine Bacteria Many H (None Seen) /HPF Ur Microscopic Review INDICATED Urine Culture Comments INDICATED 03/12/25 Range/Units 17:00 WBC 13.3 H (4.8-10.8) x10^3/uL RBC 4.16 L (4.20-5.40) 10^6/uL Hgb 12.5 (12.0-16.0) g/dL Hct 37.4 (37.0-47.0) % MCV 89.9 (81.0-99.0) fL MCH 30.0 (27.0-31.0) pg MCHC 33.4 (32.0-36.0) g/dL RDW 13.2 (12.0-15.0) % Plt Count 443 (130-450) 10^3/uL MPV 10.0 (7.9-10.8) fL Neut # (Auto) 11.2 H (1.5-6.6) 10^3/uL Lymph # (Auto) 1.0 L (1.5-3.5) 10^3/uL [place] # (Auto) 0.6 (0.0-1.0) 10^3/uL Eos # (Auto) 0.5 (0.0-0.7) 10^3/uL Baso # (Auto) 0.0 (0.0-0.1) 10^3/uL Absolute Nucleated RBC 0.00 x10^3/uL Band Neuts % (Manual) Not Reportable Abnorm Lymph % (Manual) Not Reportable Nucleated RBC % 0.0 /100WBC Neutrophils # (Manual) Not Reportable Lymphocytes # (Manual) Not Reportable Monocytes # (Manual) Not Reportable Eosinophils # (Manual) Not Reportable Basophils # (Manual) Not Reportable Differential Comment MANUAL=AUTO DIFF Manual Slide Review Indicated Platelet Estimate NORMAL (130-450,000) (NORMAL) Platelet Morphology 1+ LARGE PLATELETS (NORMAL) RBC Morph Micro Appear NORMAL APPEARANCE (NORMAL) Sodium 135 (135-145) mmol/L Potassium 3.2 L (3.5-4.5) mmol/L Chloride 98 L (101-111) mmol/L Carbon Dioxide 22 (21-32) mmol/L Anion Gap 15.0 H (6-13) BUN 30 H (6-20) mg/dL Creatinine 1.4 H (0.6-1.3) mg/dL Estimated GFR (MDRD) 36 L (>89) Glucose 164 H (74-104) mg/dL Lactic Acid (0.5-2.2) mmol/L Calcium 10.8 H (8.5-10.3) mg/dL Total Bilirubin 1.0 (0.2-1.0) mg/dL Direct Bilirubin (0.03-0.18) mg/dL AST 47 H (10-42) IU/L ALT 84 H (10-60) IU/L Alkaline Phosphatase 206 H (42-121) IU/L Total Protein 7.3 (6.4-8.9) g/dL Albumin 4.0 (3.2-5.5) g/dL Globulin 3.3 (2.1-4.2) g/dL Albumin/Globulin Ratio 1.2 (1.0-2.2) Lipase 32 (11-82) U/L Urine Color Urine Clarity (CLEAR) Urine pH (5.0-7.5) PH Ur Specific [place] (1.002-1.030) Urine Protein (NEGATIVE) mg/dL Urine Glucose (UA) (NEGATIVE) mg/dL Urine Ketones (NEGATIVE) mg/dL Urine Occult Blood (NEGATIVE) Urine Nitrite (NEGATIVE) Urine Bilirubin (NEGATIVE) Urine Urobilinogen (NORMAL) E.U./dL Ur Leukocyte Esterase (NEGATIVE) Urine RBC (0-5) /HPF Urine WBC (0-5) /HPF Ur Squamous Epith Cells (<= Few) Urine Bacteria (None Seen) /HPF Ur Microscopic Review Urine Culture Comments Diagnostic Imaging Diagnostic Imaging Results: positive Final report reviewed and Read independently Assessment/Plan Problem List (1) ZOË (acute kidney injury): (2) Angioedema: Qualifiers: Encounter type: initial encounter Qualified Code(s): T78.3XXA - Angioneurotic edema, initial encounter (3) Elevated LFTs: Impression: Plan for all of the above Patient presented with nausea, vomiting, diarrhea. Initial imaging showed concern for angioedema of the small bowel related to KONSTANTIN inhibitor use. General surgery was contacted by ER provider, who recommended observation with under medicine, IV fluids, other supportive care. This angioedema, and the resultant N/V/D, is the cause of her acute kidney injury. -NS at 100ml/hr, continuing this rate for now. Pt related she is making adequate urine. -Consider plasma if condition worsens. -She should never take an KONSTANTIN inhibitor again, will confer with medical team today and assess best alternative agent, consider CCB (but considering constipation s/s of CCB) or ARB (associated with much lower risk of angioedema). -Elevated LFTs likely secondary to dehydration, rechecked LFTs this AM; AST/ALT have come down (47-->28, 84--> 56, respectively) but ALP remains elevated (206--> 168). -Hypokalemia observed on admission likely due to GI loss in the setting of diarrheal illness, repleted with KCl starting early this AM, levels normalizing to 4.2. -Agap improved (15-->7) -BUN/Cr improved (30/1.4 --> 25/1.2) -GFR improved (36-->44), pt exhibiting possible chronic slow decreasing renal function. (4) Left kidney mass: Impression: Mass was not well-visualized due to hematoma on CT scan. Hematoma is stable in size, no acute intervention required. Already established with oncology. (5) Poor appetite: Impression: Patient reported continued poor appetite during rounds this morning. Sounds like an ongoing issue, and this is in the setting of ongoing angioedema in the GI system secondary to ACEi use. Consider appetite stimulant. Possible nutrition consult. (6) Hypertension: Impression: BP 125/87 at this time, but has been normalizing in the 130's since ACEi cessation. Preliminary med rec shows lisinopril 40 mg daily. She cannot be on KONSTANTIN inhibitor anymore, so alternate blood pressure regimen should be explored. Consider alternate agent considerations as above. Qualifiers: Hypertension type: primary hypertension Qualified Code(s): I10 - Essential (primary) hypertension (7) Suprapubic pain: Impression: Pt endorses mild suprapubic tenderness today with UA yesterday demonstrating positive nitrites, moderately high leukocyte esterase, 11-25 RBC, >25 WBC, and many urine bacteria observed. This is also in the setting of a hemorrhagic left renal mass lesion diagnosed/treated at this facility 02/23-02/25 and a history of angiomyolipoma. Pt has not been complainant of dysuria, nor has she yet presented an infective picture. At this time she has not fevered, there is no leukocytosis, no CVA tenderness, no hematuria, and she has demonstrated stable vital signs. -Will continue to monitor and reassess workup (urine cx, blood cx) if urinary s/s develop or if a concurrent infective process is suspected.
--- NOTE | 2025-03-13 11:09 | PHARMACY PROGRESS NOTE ---
Best Possible Medication History Admit Date and Time: 03/12/252038 Home Medications Medication Instructions Recorded Confirmed Type lisinopril 40 mg tablet 40 mg PO DAILY 05/09/1312/27 History triamterene 37.5 1 tab PO DAILY 05/09/1303/04 History mg-hydrochlorothiazide 25 mg tablet zolpidem 5 mg tablet 5 mg PO QPM PRN Insomnia 03/12/25 History aspirin 81 mg chewable tablet 81 mg PO DAILY 04/10/20 03/12/25 History multivitamin with minerals-folic 1 tab PO DAILY 03/12/25 History acid 0.4 mg tablet rosuvastatin 20 mg tablet 20 mg PO QPM 02/23/25 History cholecalciferol (vitamin D3) 50 50 mcg PO DAILY 03/12/25 History mcg (2,000 unit) tablet fenofibrate micronized 134 mg 134 mg PO QPM 02/24/25 1 05/13/24 History capsule gabapentin 300 mg capsule 300 mg PO QPM 02/24/2503/12 History tamsulosin 0.4 mg capsule 0.4 mg PO HS #30 caps 03/12/25 Rx xylitol 500 mg mucosal adhesive 500 mg mucous membrane PRN PRN dry 03/12/25 03/12/25 History tablet (XyliMelts) mouth exemestane 25 mg tablet 25 mg PO DAILY 03/13/2503/04 History omeprazole 20 mg capsule,delayed 20 mg PO DAILY PRN he artburn 03/13/25 03/13/25 History release Processed by: Pharmacy Medications reviewed in ED?: Yes Medication History completed: Yes Patient Interview: Completed (BY 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 Such practice is discouraged except when the physician, in their clinical judgment, deems that a medical need exists for a medication without regard to previous use.
[2025-03-13] MEDS: FOSFOMYCIN TROMETHAMINE 3 GM PACKET PO ONE (14:58)
[2025-03-13 23:37] VITALS: TEMP 98.4
[2025-03-14 05:44] LABS: HCT - HEMATOCRIT 27.9 % (37.0-47.0); HGB - HEMOGLOBIN 8.5 g/dL (12.0-16.0); MEAN PLATELET VOLUME 9.9 fL (7.9-10.8); NRBC ABSOLUTE COUNT (AUTO) 0.00 x10^3/uL; NUCLEATED RED BLOOD CELLS AUTO 0.0 /100WBC; PLT - PLATELET COUNT 290 10^3/uL (130-450); RED CELL DISTRIBUTION WIDTH 13.7 % (12.0-15.0)
[2025-03-14 06:03] LABS: BUN - BLOOD UREA NITROGEN 16.0 mg/dL (6-20); CARBON DIOXIDE - CO2 23.0 mmol/L (21-32); CREATININE 0.7 mg/dL (0.6-1.3); GFR - MDRD 81.0 (>89)
[2025-03-14 08:59] VITALS: O2SAT 99
--- NOTE | 2025-03-14 10:14 | Discharge Summary ---
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 Urinary tract infection, cultures pending, treated with 1 dose of fosfomycin. Hypokalemia, persistent, recommend initiation of therapy as prescribed by her outpatient provider and electrolyte monitoring in 7 to 10 days. HPI History of Present Illness: 79-year-old female with right breast cancer on aromatase inhibitor, who was recently admitted here for retroperitoneal bleed secondary to angio myolipoma of the left kidney presents with nausea, vomiting, diarrhea. She reports this had sudden onset around noon today, shortly after her PCP appointment. She denies fever, chills, chest pain, dyspnea. Reports decreased urine output, but also reports poor oral intake over the past week. She reports intermittent abdominal pain associated with her nausea and vomiting. In the ER, lab work was significant for elevated WBC at 13.3, potassium 3.2, creatinine 1.4, up from baseline around 0.8-1.1. Some LFT elevations with AST 47, ALT 84, alk phos 206. CT of the abdomen and pelvis was performed which, while it showed similar appearing left hydronephrosis, and interval decrease in size of left perinephric hematoma, it was concerning for mural hyperenhancement and mural thickening of the small bowel predominantly involving the jejunum and ileum concerning for KONSTANTIN inhibitor mediated angioedema of the small bowel. General surgery was contacted by ER provider, who confirms impression of CT read, and hospitalist was contacted for observation for acute kidney injury, small bowel angioedema, Dehydration CONSULTS | PROCEDURES Consultations: Anthony Ibrahim, general surgery. HOSPITAL COURSE Hospital Course: 79-year-old female who had been on lisinopril for many years with sudden onset of symptoms admitted with small bowel angioedema. Surgery consulted no intervention needed. She was taken off her lisinopril. Symptoms resolved and she was able to tolerate a regular diet. Patient had some hypokalemia on admission. She was supplemented. Potassium responded appropriately but then dropped down to 3.2 on the date of discharge. Patient has been prescribed potassium supplements. I would recommend that she start these and follow-up with her PCP in 7 to 10 days for recheck of electrolytes. 03/12/25 03/13/25 03/14/25 17:00 04:26 05:35 Potassium 3.2 L 4.2 3.3 L Also with some mild elevation in transaminases. Would recommend trending these in the outpatient setting. On discharge I am recommending ambulatory blood pressure monitoring. Patient has been given instructions regarding this. While she was here in the hospital her systolic blood pressure stayed in the range of 135-140. Therefore I am not starting any antihypertensives but in recommending outpatient follow-up with PCP after logging blood pressures at home.Selected Entries 03/12/25 17:21 03/12/25 19:52 03/12/25 21:00 Blood Pressure 127/64 125/87 135/82 H Blood Pressure [Left Brachial artery] 03/12/25 21:20 03/12/25 23:32 03/13/25 03:47 Blood Pressure Blood Pressure [Left Brachial artery] 142/69 H 132/62 H 136/64 H 03/13/25 08:00 03/13/25 12:00 03/13/25 15:45 Blood Pressure Blood Pressure [Left Brachial artery] 121/64 108/51 L 121/62 ALLERGIES Allergies Allergy/AdvReac Type Severity Reaction Status Date / Time codeine AdvReac Emesis Verified 03/12/25 16:48 MEDICATIONS Ambulatory Orders Medication Instructions Recorded Confirmed triamterene 37.5 1 tab PO DAILY 05/09/1303/04 mg-hydrochlorothiazide 25 mg tablet zolpidem 5 mg tablet 5 mg PO QPM PRN Insomnia 03/12/25 aspirin 81 mg chewable tablet 81 mg PO DAILY 04/10/20 03/12/25 multivitamin with minerals-folic 1 tab PO DAILY 03/12/25 acid 0.4 mg tablet rosuvastatin 20 mg tablet 20 mg PO QPM 02/23/25 cholecalciferol (vitamin D3) 50 50 mcg PO DAILY 03/12/25 mcg (2,000 unit) tablet fenofibrate micronized 134 mg 134 mg PO QPM 02/24/25 1 05/13/24 capsule gabapentin 300 mg capsule 300 mg PO QPM 02/24/2503/12 tamsulosin 0.4 mg capsule 0.4 mg PO HS #30 caps 03/12/25 xylitol 500 mg mucosal adhesive 500 mg mucous membrane PRN PRN dry 03/12/25 03/12/25 tablet (XyliMelts) mouth exemestane 25 mg tablet 25 mg PO DAILY 03/13/2503/04 omeprazole 20 mg capsule,delayed 20 mg PO DAILY PRN he artburn 03/13/25 03/13/25 release PHYSICAL EXAM AT DISCHARGE Vital Signs: Vital Signs x48h Temp Pulse Resp BP Pulse Ox 03/14/25 08:00 36.9 C 56 L 16 137/65 H 99 General Appearance: positive No acute distress and Alert Eyes Bilateral: positive Normal inspection ENT: positive ENT inspection nml Neck: positive Nml inspection Respiratory: positive No respiratory distress and Breath sounds nml Cardiovascular: positive Regular rate & rhythm and No murmur Abdomen: positive Non-tender and No distention Skin: positive Color nml Neurologic/Psychiatric: positive Oriented x3 LABS 03/14/25 05:35 03/14/25 05:35 FOLLOW UP Follow Up: MADDI Duron, 7 to 10 days. TIME SPENT Time Spent in Discharge (Minutes): 45 Discharge Plan Discharge Patient Disposition: 01 Home, Self Care Condition: Good Prescriptions: Continued triamterene-hydrochlorothiazid 1 EACH tablet 1 tab PO DAILY zolpidem 5 MG tablet 5 mg PO QPM PRN (Reason: Insomnia) aspirin 81 MG tablet,chewable 81 mg PO DAILY rosuvastatin 20 mg tablet 20 mg PO QPM fenofibrate micronized 134 mg capsule 134 mg PO QPM gabapentin 300 mg capsule 300 mg PO QPM cholecalciferol (vitamin D3) 50 mcg (2,000 unit) tablet 50 mcg PO DAILY tamsulosin 0.4 mg capsule 0.4 mg PO HS Qty: 30 2RF Rx Instructions: Helps with flank pain from obstruction XyliMelts 500 mg muco-adhesive buccal tablet 500 mg mucous membrane PRN PRN (Reason: dry mouth) omeprazole 20 mg capsule,delayed release(DR/EC) 20 mg PO DAILY PRN (Reason: heartburn) exemestane 25 mg tablet 25 mg PO DAILY Rx Instructions: must administer after a meal multivit with min-folic acid 0.4 mg tablet 1 tab PO DAILY Discontinued lisinopril 40 MG tablet 40 mg PO DAILY Diet: Regular Health Concerns: Lisinopril has beenpermanently discontinueddue to angioedema (swelling reaction). Do not take lisinopril or any other KONSTANTIN inhibitor medications (medications ending in "-pril") again, as this reaction can be life-threatening. Blood Pressure Monitoring at Home * Check blood pressuretwice daily: once in the morning and once in the evening * Take readings at the same times each day, before taking any medications * Sit quietly for 5 minutes before measuring * Keep a written log of all readings with date and time * Bring this log to all follow-up appointments * resume your home medication of triamterene/hydrochlorothiazide This is also called dyazide/maxide. * start taking the prescribed potassium supplement. The medication above will cause you to lose some potassium. We gave you some here in the hospital, but your body will continue to lose it. This is another reason why primary doctor followup is important, you need more blood work. When to Seek Emergency Care Return to the emergency department immediately if you experience: * Swelling of the face, lips, tongue, or throat * Difficulty breathing or swallowing * Severe headache with blood pressure readings consistently above 180/120 * Chest pain, severe dizziness, or vision changes Important Medication Safety Information Avoid Ambien (zolpidem) and similar sleep medications.These medications are not recommended for older adults because they significantly increase the risk of falls, hip fractures, confusion, and memory problems. Older adults taking zolpidem have more than double the risk of falls leading to hospitalization.Additionally, zolpidem is contraindicated in patients with a history of angioedema. If you are having trouble sleeping, discuss safer alternatives with your primary care physician. Follow-Up Care * Schedule an appointment with your primary care physician within 3-5 days ( or as soon as she is able to see you). to discuss alternative blood pressure medications * Continue monitoring and logging your blood pressure until seen by your physician * Bring your blood pressure log to your appointment What is MiraLAX? MiraLAX (polyethylene glycol 3350) is an osmotic laxative used to relieve occasional constipation. It works by drawing water into the bowel to soften stool and promote bowel movements.[1] How to Take MiraLAX * Standard dose: Mix 17 grams of powder (fill the bottle cap to the top of the white section) in 4 to 8 ounces of any beverage (cold, hot, or room temperature) once daily * Important: Stir until the powder is completely dissolved before drinking. Do not drink if there are clumps remaining * Timing: MiraLAX generally produces a bowel movement within 1 to 3 days * Adjusting your dose: The dose can be adjusted daily by you or your caregiver to achieve a soft but formed bowel movement Managing Loose Stools If you develop loose, watery, or more frequent stools while taking MiraLAX:[1] * Reduce the doseor skip a day to allow your bowel movements to firm up * You may need to take MiraLAX less frequently (every other day or every few days) rather than daily * The goal is to find the lowest dose that keeps you regular without causing diarrhea When to Contact Your Doctor Stop using MiraLAX and call your doctor if you experience: * Rectal bleeding * Worsening nausea, bloating, cramping, or abdominal pain (these may indicate a serious condition) * Diarrhea that does not improve with dose reduction * Need to use MiraLAX for longer than 1 week without medical supervision Do Not Use MiraLAX If: * You are allergic to polyethylene glycol * You have kidney disease (unless your doctor specifically advises it) * You have nausea, vomiting, or abdominal pain * You have had a sudden change in bowel habits lasting more than 2 weeks * You have irritable bowel syndrome (unless directed by your doctor) Important Safety Information * MiraLAX has minimal interactions with other medications, making it particularly suitable for older adults taking multiple medications * Studies have shown MiraLAX to be safe and effective in elderly patients for up to 12 months * Do not combine with starch-based thickeners used for swallowing difficulties * Keep out of reach of children Additional Tips for Managing Constipation * Drink plenty of fluids throughout the day * Increase fiber in your diet when possible * Try to have a bowel movement after meals when your digestive system is most active * Stay as physically active as you are able Print Language: Turkmen Patient Instructions: ED Angioedema Follow-up Care: PRISCILA MARTINI ARNP [Primary Care Provider, Nurse Practitioner] Vitals documented within 30 minutes of discharge?: Yes
[2025-03-14 12:26] VITALS: BP 146/79
== END 2025-03-14 12:30 | disposition home or self-care (01) | DRG 683 ==
LOC: ED 16:41 → MS3 16:41
PROVIDERS: ADMIT Nurse Practitioner Acute Care; ATTEND Physician Assistant Medical